=== PATIENT | male | born 1950 | race Caucasian/White ===

== ENCOUNTER 2020-03-04 11:21 | Outpatient (REF) | payer MEDICARE, SELFPAY ==
[2020-03-04 14:18] LABS: Glucose Fasting 113 mg/dL (60-99)
[2020-03-04 14:54] LABS: Estimated Average Glucose 120 mg/dL; Hemoglobin A1c % 5.8 %
== END 2020-03-04 11:22 | disposition home or self-care (01) ==
LOC: HO.10HDL 11:21
PROVIDERS: Visit Provider Family Medicine
DX: R73.9 Hyperglycemia, unspecified (principal)
CPT/HCPCS: 82947; 83036

== ENCOUNTER 2020-09-25 08:19 | Outpatient (REF) | payer MEDICARE, SELFPAY ==
[2020-09-25 10:23] LABS: MANUAL DIFF FLAG NO
[2020-09-25 10:29] LABS: Basophils Percent Auto 0.7 % (0-2); Eosinophils Absolute Auto 0.1 X10*3/uL (0.0-0.4); Eosinophils Percent Auto 1.6 % (0-4); Hematocrit 38.9 % (42-52); Hemoglobin 13.7 g/dl (14.0-18.0); Imm Gran Abs Auto 0.02 X10*3/uL (0.00-0.03); Imm Gran Pct Auto 0.4 % (0.0-0.4); Lymphocytes Absolute Auto 1.3 X10*3/uL (1.2-4.9); Lymphocytes Percent Auto 24.1 % (20-40); Mean Corpuscular HGB Conc 35.2 g/dl (31.0-36.0); Mean Corpuscular Hemoglobin 29.8 pg (27.0-33.0); Mean Corpuscular Volume 84.7 fL (80-98); Mean Platelet Volume 9.9 fL (9.4-12.4); Monocytes Absolute Auto 0.6 X10*3/uL (0.1-1.2); Monocytes Percent Auto 10.5 % (2-11); Neutrophils Absolute Auto 3.5 X10*3/uL (2.0-8.3); Neutrophils Percent Auto 62.7 % (45-73); Platelet Count 204 X10*3/uL (160-400); Red Blood Count 4.59 X10*6/uL (4.60-5.80); Red Cell Distribution Width 12.5 % (11.0-16.0); White Blood Count 5.5 X10*3/uL (4.8-10.8)
[2020-09-25 10:48] LABS: Creatinine Urine 229.18 mg/dL; Microalbum/Creatinine Ratio Ur 5.6 ug/mg cr; Protein/Creatinine Ratio, Ur 0.04 (<0.2); Total Protein Urine Random 10 mg/dL (<12)
[2020-09-25 10:55] LABS: Glucose Urine UA NEG (NEG); Leukocyte Esterase Urine NEG (NEG); Nitrite Urine NEG (NEG); Specific Gravity - Urine 1.025 (1.005-1.025); Urine Blood NEG (NEG); Urine Ketones NEG (NEG); Urine Protein NEG (NEG-TRACE)
[2020-09-25 10:59] LABS: Appearance Urine CLEAR; Color Urine YELLOW
[2020-09-25 11:00] LABS: Albumin Level 4.6 g/dL (3.5-5.0); Anion Gap 14 (12-20); Blood Urea Nitrogen 21 mg/dL (9-16); Calcium 10.2 mg/dL (8.4-10.2); Carbon Dioxide 30 mmol/L (22-29); Chloride 102 mmol/L (96-108); Estimated Glomerular Filt Rate 57; Phosphorus 3.8 mg/dL (2.7-4.5); Potassium 3.6 mmol/L (3.3-5.1); Sodium 142 mmol/L (135-145)
[2020-09-25 11:14] LABS: RBC Urine 0-2 /HPF (0); WBC Urine 0 /HPF (0-4)
[2020-09-25 13:10] LABS: Renal w Reflex Lab Use Only Order verified
[2020-09-25 13:46] LABS: Vitamin D 25-OH Total 85.5 ng/mL (>30)
[2020-09-26 14:22] LABS: Calcium (PTHI) 9.9 mg/dL (8.6-10.3); PTHI 22 pg/mL (14-64)
== END 2020-09-25 08:20 | disposition home or self-care (01) ==
LOC: HO.10HDL 08:19
PROVIDERS: Visit Provider Internal Medicine Nephrology
DX: I12.9 Hypertensive chronic kidney disease with stage 1 through stage 4 chronic kidney disease, or unspecified chronic kidney disease (principal); N18.30 Chronic kidney disease, stage 3 unspecified
CPT/HCPCS: 36415; 80051; 81001; 82040; 82043; 82306; 82310; 82565; 83735; 83970; 84100; 84156; 84520; 85025

== ENCOUNTER → 2020-12-29 10:13 | Outpatient (REF) | payer MEDICARE, SELFPAY ==
--- NOTE | 2020-12-29 10:18 | CA_ITS ---
Transthoracic Echocardiogram Patient (Last, First, Middle): Juan Alberto Morales, Gender: Male Date of : 1950 Age: 69 Procedure Date: 12/29/2020 Procedure Type: Transthoracic Echocardiogram Location: OP Height: 172.72 cm Weight: 90.72 kg BSA: 2.04 m2 Heart Rate: bpm BP: 130 / 70 mmHg Gear Design Engineer: Referring MD: Oscar Grant MD Symptoms: NON RHEUMATIC AORTIC VALVE STENOSIS Study Quality: Fair ECG Rhythm: Sinus Conclusions: - The left ventricular systolic function is normal. The visually estimated ejection fraction is between 55-60%. - There is moderate aortic valve stenosis. - There is mild aortic valve regurgitation. - There is mild dilatation of the ascending aorta measuring 4.00 cm. Findings Procedure Information Contrast agent, definity, is being given per protocol without apparent complications. Left Ventricle Normal left ventricular cavity size. There is mildly increased left ventricular wall thickness. The left ventricular systolic function is normal. The visually estimated ejection fraction is between 55-60%. There is no evidence of regional wall motion abnormalities. E/E prime ratio is between 8 and 15 consistent with indeterminate filling pressures. Evidence suggests grade I (mild) diastolic dysfunction. Right Ventricle Mildly increased right ventricular cavity size. There is normal right ventricular systolic function. RV basal diameter - 4.55 cm. Atria The left atrium is moderately dilated. The right atrium is normal in size. Aortic Valve There is moderate calcification of the aortic valve. There is moderate aortic valve stenosis. The peak aortic velocity is 2.79 m/s with a calculated peak gradient of 31 mmHg. The mean gradient is 15 mmHg. The aortic valve area is 1.03 cm2. There is mild aortic valve regurgitation. Dimensionless index 0.29. Mitral Valve The mitral valve appears normal. There is trace mitral valve regurgitation. There is no mitral valve stenosis. Pulmonic Valve The pulmonic valve was not well visualized. Tricuspid Valve There is trace tricuspid valve regurgitation. The pulmonary artery systolic pressure is normal. Great Vessels There is mild dilatation of the ascending aorta measuring 4.00 cm. Venous The inferior vena cava is normal in size and collapses greater than 50% with inspiration. Pericardium/Pleural There is no evidence of pericardial effusion. Prior Study Comparison No significant change compared to prior study dated: 12/30/2017. Measurements 2D Linear Measurements IVSd: 1.09 0.6-0.9/0.6-1.0 cm LVIDd: 4.88 3.9-5.3/4.2-5.9 cm LVIDd Index: 2.39 2.4-3.2/2.2-3.1 cm/m2 LVIDs: 3.06 2.0-3.6 cm LVPWd: 1.11 0.7-1.1 cm Ao Root: 3.60 2.1-3.5 cm LA Diam: 3.80 2.7-3.8/3.0-4.0 cm LAIDs Index: 1.86 1.5-2.3 cm/m2 LV Mass: 248.23 67-162/88-224 g LV Mass Index: 121.68 43-95/49-115 g/m2 LVOT Diam: 2.10 3.0+(-)1.3 cm 2D Systolic Function EF 4C: 42.40 >55% EF 2C: 60.30 >55% EF BiP: 51.60 >55% Mitral Valve MV Pk E: 0.96 MV PK A: 0.91 MV Decel Time: 232.00 E/A: 1.10 E'Lateral: 7.94 E'Medial: 6.31 E/E' Med: 15.20 E/E' Lat: 12.10 PHT: 68.00 MVA PHT: 3.24 Decel [place]: 4.13 Aortic Valve AoV Pk Saulo: 2.79 AoV Mn Saulo: 1.77 AoV VTI: 0.75 AoV Pk Grad: 31.00 Aov Mn Grad: 15.00 NUBIA Cont.VTI: 1.03 LVOT LVOT Pk Saulo: 0.80 LVOT Mn Saulo: 0.53 LVOT VTI: 0.22 LVOT Pk Grad: 3.00 LVOT Mn Grad: 1.00 LVOT Diam: 2.10 LVOT Area: 3.46 Diastolic Function MV Pk E: 0.96 MV Pk A: 0.91 E/A: 1.10 E'Medial: 6.31 E/E' Med: 15.20 E' Laterial: 7.94 E/E' Lat: 12.10 Right Ventricle TAPSE (mm): 26.00 TVS' Saulo: 13.70 Tricuspid Valve TR Pk Saulo: 2.19 TR Pk Grad: 19.00 RA Press: 3.00 RVSP: 22.00 Great Vessels Aorta Ao Root-2D: 3.60 2.0-3.7 cm Ao Asc: 4.00 2.1-3.4 cm Pulmonary Valve PV Pk Saulo: 0.86 Peak PV Grad: 3.00 Updated in Other Vendor System with Status of Final Brody Rahman MD electronically signed on 12/29/2020 12:31:35 PM with status of Final
== END ==
LOC: HO.CARD 10:13
PROVIDERS: PCP Family Medicine; Visit Provider Family Medicine
DX: I35.1 Nonrheumatic aortic (valve) insufficiency (principal); I35.0 Nonrheumatic aortic (valve) stenosis
CPT/HCPCS: 93306; Q9957

== ENCOUNTER 2021-04-24 10:20 | Outpatient (REF) | payer MEDICARE, SELFPAY ==
[2021-04-24 13:53] LABS: MANUAL DIFF FLAG NO
[2021-04-24 14:03] LABS: Basophils Percent Auto 0.7 % (0-2); Eosinophils Absolute Auto 0.1 X10*3/uL (0.0-0.4); Eosinophils Percent Auto 1.3 % (0-4); Hematocrit 40.1 % (42.0-52.0); Hemoglobin 14.2 g/dl (14.0-18.0); Imm Gran Abs Auto 0.01 X10*3/uL (0.00-0.03); Imm Gran Pct Auto 0.2 % (0.0-0.4); Lymphocytes Absolute Auto 1.7 X10*3/uL (1.2-4.9); Lymphocytes Percent Auto 30.5 % (20-40); Mean Corpuscular HGB Conc 35.4 g/dl (31.0-36.0); Mean Corpuscular Volume 84.6 fL (80.0-98.0); Mean Platelet Volume 10.1 fL (9.4-12.4); Monocytes Absolute Auto 0.7 X10*3/uL (0.1-1.2); Monocytes Percent Auto 11.6 % (2-11); Neutrophils Absolute Auto 3.1 x10*3/uL (2.0-8.3); Neutrophils Percent Auto 55.7 % (45-73); Platelet Count 211 X10*3/uL (160-400); Red Blood Count 4.74 X10*6/uL (4.60-5.80); Red Cell Distribution Width 13.3 % (11.0-16.0); White Blood Count 5.6 X10*3/uL (4.8-10.8)
[2021-04-24 14:13] LABS: Estimated Average Glucose 123 mg/dL; Hemoglobin A1c % 5.9 %
[2021-04-24 14:19] LABS: Anion Gap 13 (12-20); Blood Urea Nitrogen 14 mg/dL (9-16); Carbon Dioxide 30 mmol/L (22-29); Chloride 103 mmol/L (96-108); Estimated Glomerular Filt Rate 57; Glucose Fasting 107 mg/dL (60-99); Potassium 3.3 mmol/L (3.3-5.1); Sodium 143 mmol/L (135-145)
== END 2021-04-24 10:21 | disposition home or self-care (01) ==
LOC: HO.10HDL 10:20
PROVIDERS: Absent Provider Internal Medicine Nephrology; Visit Provider Family Medicine
DX: I10 Essential (primary) hypertension (principal); D64.9 Anemia, unspecified; Z83.3 Family history of diabetes mellitus
CPT/HCPCS: 36415; 80051; 82565; 82947; 83036; 84520; 85025

== ENCOUNTER → 2021-11-11 14:32 | Outpatient (BNVA) | payer MEDICARE, SELFPAY | PROVIDERS: PCP Family Medicine; Referring Provider Family Medicine; Visit Provider Surgery | DX: L98.9 Disorder of the skin and subcutaneous tissue, unspecified (principal) | CPT/HCPCS: 99202 ==

== ENCOUNTER 2021-12-02 09:50 | Outpatient (REF) | payer MEDICARE, SELFPAY | END 2021-12-02 09:51 | disposition home or self-care (01) | LOC: HO.LAB 09:50 | PROVIDERS: PCP Family Medicine; Visit Provider Surgery | DX: L98.9 Disorder of the skin and subcutaneous tissue, unspecified (principal) | CPT/HCPCS: 11401; 11402; 11440; 11441; 88304; 88305 ==

== ENCOUNTER 2021-12-15 07:29 | Outpatient (REF) | payer MEDICARE, SELFPAY ==
[2021-12-15 07:41] LABS: MANUAL DIFF FLAG NO
[2021-12-15 07:59] LABS: Basophils Absolute Auto 0.1 X10*3/uL (0.0-0.2); Eosinophils Absolute Auto 0.2 X10*3/uL (0.0-0.4); Eosinophils Percent Auto 2.6 % (0-4); Hematocrit 37.6 % (42.0-52.0); Hemoglobin 13.7 g/dl (14.0-18.0); Imm Gran Abs Auto 0.01 X10*3/uL (0.00-0.03); Imm Gran Pct Auto 0.2 % (0.0-0.4); Lymphocytes Absolute Auto 1.7 X10*3/uL (1.2-4.9); Lymphocytes Percent Auto 29.2 % (20-40); Mean Corpuscular HGB Conc 36.4 g/dl (31.0-36.0); Mean Corpuscular Hemoglobin 30.8 pg (27.0-33.0); Mean Corpuscular Volume 84.5 fL (80.0-98.0); Monocytes Absolute Auto 0.6 X10*3/uL (0.1-1.2); Neutrophils Absolute Auto 3.2 x10*3/uL (2.0-8.3); Platelet Count 189 X10*3/uL (160-400); Red Blood Count 4.45 X10*6/uL (4.60-5.80); Red Cell Distribution Width 12.8 % (11.0-16.0); White Blood Count 5.7 X10*3/uL (4.8-10.8)
[2021-12-15 08:23] LABS: Albumin Level 4.4 g/dL (3.5-5.0); Anion Gap 16 (12-20); Blood Urea Nitrogen 19 mg/dL (9-16); Calcium 9.6 mg/dL (8.4-10.2); Carbon Dioxide 29 mmol/L (22-29); Chloride 102 mmol/L (96-108); Estimated Glomerular Filt Rate 55; Phosphorus 3.7 mg/dL (2.7-4.5); Potassium 3.5 mmol/L (3.3-5.1); Sodium 143 mmol/L (135-145)
[2021-12-15 08:45] LABS: Vitamin D 25-OH Total 69.6 ng/mL (>30)
[2021-12-15 09:02] LABS: Appearance Urine HAZY; Color Urine YELLOW; Glucose Urine UA NEG (NEG); Leukocyte Esterase Urine NEG (NEG); Nitrite Urine NEG (NEG); Specific Gravity - Urine 1.025 (1.005-1.025); Urine Blood NEG (NEG); Urine Ketones 5 MG/DL (NEG); Urine Protein TRACE MG/DL (NEG-TRACE)
[2021-12-15 10:47] LABS: Microalbum/Creatinine Ratio Ur 12.3 ug/mg cr; Protein/Creatinine Ratio, Ur 0.07 (<0.2); Total Protein Urine Random 26 mg/dL (<12)
[2021-12-16 11:52] LABS: Calcium (PTHI) 9.7 mg/dL (8.6-10.3); PTHI 32 pg/mL (16-77)
== END 2021-12-15 07:30 | disposition home or self-care (01) ==
LOC: HO.LAB 07:29
PROVIDERS: PCP Family Medicine; Visit Provider Internal Medicine Nephrology
DX: I12.9 Hypertensive chronic kidney disease with stage 1 through stage 4 chronic kidney disease, or unspecified chronic kidney disease (principal); N18.31 Chronic kidney disease, stage 3a; N25.0 Renal osteodystrophy
CPT/HCPCS: 36415; 80051; 81003; 82040; 82043; 82306; 82310; 82565; 83735; 83970; 84100; 84156; 84520; 85025; 87086

== ENCOUNTER → 2022-01-06 08:25 | Outpatient (BNVA) | payer MEDICARE, SELFPAY | PROVIDERS: PCP Family Medicine; Visit Provider Surgery | DX: Z12.11 Encounter for screening for malignant neoplasm of colon (principal) | CPT/HCPCS: 99202 ==

== ENCOUNTER 2022-01-20 10:09 | Outpatient (REF) | payer MEDICARE, SELFPAY ==
[2022-01-20 12:10] LABS: Estimated Average Glucose 117 mg/dL; Hemoglobin A1c % 5.7 %
[2022-01-20 12:36] LABS: Alanine Aminotransferase 26 U/L (0-40); Anion Gap 18 (12-20); Aspartate Amino Transferase 21 U/L (5-37); Blood Urea Nitrogen 17 mg/dL (9-16); Carbon Dioxide 29 mmol/L (22-29); Chloride 101 mmol/L (96-108); Cholesterol 188 mg/dL; Estimated Glomerular Filt Rate 52; Glucose Fasting 124 mg/dL (60-99); HDL Cholesterol 36 mg/dL; LDL Cholesterol Calculated 87 mg/dl; Potassium 3.9 mmol/L (3.3-5.1); Sodium 144 mmol/L (135-145); Triglycerides 329 mg/dL
[2022-01-20 15:28] LABS: Hemoglobin A1C 149.8635 umol/L
== END 2022-01-20 10:10 | disposition home or self-care (01) ==
LOC: HO.LAB 10:09
PROVIDERS: PCP Family Medicine; Visit Provider Family Medicine
DX: I10 Essential (primary) hypertension (principal); R73.9 Hyperglycemia, unspecified; E78.00 Pure hypercholesterolemia, unspecified; Z79.899 Other long term (current) drug therapy
CPT/HCPCS: 36415; 80051; 80061; 82550; 82565; 82947; 83036; 84450; 84460; 84520

== ENCOUNTER 2022-03-05 08:02 | Day surgery (SDC) | payer MEDICARE, SELFPAY ==
[2022-03-05 09:02] VITALS: BP 129/75; PULSE 61; RESP 18; TEMP 36; BMI 29.8
--- NOTE | 2022-03-05 09:15 | P.CONAN_ITS ---
HPI - Anesthesia Eval Consult details Narrative: 71 M for colonoscopy [facility] Active Problems Active Problems: All Active Problems (Updated 01/19/22 @ 11:01 by Alma Marroquin, LARISSA) Skin lesion of face (Acute) Benign skin lesion of thigh (Acute) Colon cancer screening (Acute) Hypertension (Acute) Arthritis (Acute) Past Medical History Medical History Arthritis Colon cancer screening History of heartburn Hyperlipidemia Hypertension Non-rheumatic aortic stenosis Functional capacity: independent ambulation Family History Family History Sister Lung cancer Sister Cancer Mother Breast cancer Family history of problems with anesthesia: No Surgical History Surgical History History of arthroscopy of both knees History of back surgery History of cholecystectomy History of surgical removal of skin lesion (~2021) Hx of arthroscopy of right knee Hx of repair of right rotator cuff History of Problems with Anesthesia: No Social History Social History Alcohol intake: former Year quit: 2019 Patient Tobacco Use Status: Never used Tobacco Meds Allergies Allergy/AdvReac Type Severity Reaction Status Date / Time No Known Allergies Allergy Unverified 01/06/22 08:31 Active Medications: Current Medications Lactated Ringer's (Lr) 1,000 mls @ 100 mls/hr IVCONT .Q10H [facility] Home Medications Medication Instructions Recorded Confirmed Last Taken Type aspirin 81 mg tablet,delayed 81 mg PO DAILY 11/11/21 01/19/22 Unknown History release (Adult Low Dose Aspirin) atenolol 50 mg-chlorthalidone 25 1 tab PO DAILY 11/11/21 01/19/22 Unknown History mg tablet atorvastatin 20 mg tablet 20 mg PO DAILY 11/11/21 01/19/22 Unknown History cyanocobalamin (vitamin B-12) 1,000 mcg PO DAILY 11/11/21 01/19/22 Unknown History 1,000 mcg capsule lisinopril 20 mg tablet 20 mg PO DAILY 11/11/21 01/19/22 Unknown History nifedipine 30 mg tablet,extended 30 mg PO DAILY 11/11/21 01/19/22 Unknown History release 24 hr omega 1-xjc-had-fish oil 60 mg-90 1 cap PO DAILY 11/11/21 01/19/22 Unknown History mg-500 mg capsule (Fish Oil) Exam Exam Date and Time: March 05, [id number] Height,Weight and Vital Signs: Height 5 ft 9 in Weight 91.626 kg Last Vital Signs Temp 96.8 F 03/05/22 09:02 Pulse 61 03/05/22 09:02 Resp 18 03/05/22 09:02 BP 129/75 03/05/22 09:02 Airway Mallampati Class: IV TM Dist: >3cm Neck ROM: Full Loose/Missing/Broken Teeth: Yes (Poor dentition ) Heart: S1,S2 Lungs: b/l breath sounds Assessment and Plan Assessment Anesthesia Assessment: Anesthesia Plan Discussed and Chart Reviewed Final Anesthetic Review Family History of Problems with Anesthesia: No History of Problems with Anesthesia: No NPO: Yes ASA Class: III Final Preanesthetic Review: Meds/Allgs Chart Reviewed, Consent Obtained/Reviewed and Anes Risks/Benef Reviewed Patient Risk: Intermediate Procedure Risk: Intermediate Anesthetic Plan Anesthetic Plan: MAC: Disposition: Standard PACU
[2022-03-05] MEDS: Lactated Ringers 1,000 ML 100 ML IVCONT (09:32)
--- NOTE | 2022-03-05 10:00 | MHC.SHP ---
Pre-Procedural Eval Section A Date of Service: 03/05/22 Section B Chief Complaint: screening Details of Present Illness: For colon cancer screening, last colonoscopy 10 years ago, no GI complaints Relevant Family History (Specify if Yes): No Relevant Social History: None Present Medications: see Short Stay Collaborative assessment Medical History: Significant History ( hypertension, arthritis) Allergies: Allergies Allergy/AdvReac Type Severity Reaction Status Date / Time No Known Allergies Allergy Unverified 01/06/22 08:31 Review of Systems Sugical H&P ROS: Negative: Constitution, Cardiovascular, Respiratory, Neurological, Psychiatric, Hem-Onc, Allergic/Immunologic, Gastrointestinal, Genitourinary, Musculoskeletal, Integumentary, Endocrine and Eyes/Ears/Nose/Throat Exam Surgical H&P Exam: Normal: HEENT, Normal: Heart, Normal: Lungs, Normal: Extremities, Normal: Abdomen, Normal: Skin and Normal: Neurological Plan Diagnosis/Plan: Unchanged I have reviewed the history and physical and performed a pertinent physical examination on my patient. No changes have occurred unless specified.
--- NOTE | 2022-03-05 10:38 | W.PM.OPN ---
Operative Note Operative Note Date of Service: 03/05/22 Narrative: Preop diagnosis: Colon cancer screening Postop diagnosis: Sigmoid diverticulosis otherwise normal colonoscopy findings Procedure: Colonoscopy Surgeon: Eddie Aden MD The patient is a 71-year-old male last colonoscopy was about 10 years ago. He understood the technique of colonoscopy for screening. He was aware of the risks, benefits, and alternatives. The patient was brought to the operating room and placed in left lateral decubitus position under monitored anesthesia care. A surgical time-out was done. A full digital rectal exam was done and this did not reveal any significant anal lesions. The tip of the Olympus colonoscope was gently introduced through the anal orifice advanced with insufflation all the way to the cecum. The cecum was intubated. The cecum was identified by visualization of the ileocecal valve as well as the appendiceal orifice. The cecal mucosa was unremarkable. The scope was gradually withdrawn with careful examination of the entire colonic mucosa being done with scope withdrawal. The patient had adequate bowel prep so it was unlikely that any lesion may have been missed. The rectum was reached and there were no lesions seen. The anal canal was unremarkable. The scope was then withdrawn completely with desufflation The patient tolerated procedure well. There were no immediate complications. [His] next colonoscopy may be in the next [10] years if he remains healthy by then..
[2022-03-05 10:51] VITALS: BP 111/45; PULSE 51; RESP 19; TEMP 36.3; O2SAT 98
[2022-03-05 11:06] VITALS: BP 129/63; PULSE 52; RESP 18; TEMP 36.1; O2SAT 98
== END 2022-03-05 11:56 | disposition home or self-care (01) ==
PROVIDERS: PCP Family Medicine; Visit Provider Surgery
PROC: 0DBE8ZZ Excision of Large Intestine, Via Natural or Artificial Opening Endoscopic (ICD-10-PCS; CPT G0121; principal; 2022-03-05 09:40)
DX: Z12.11 Encounter for screening for malignant neoplasm of colon (principal); K57.30 Diverticulosis of large intestine without perforation or abscess without bleeding; I10 Essential (primary) hypertension; E78.5 Hyperlipidemia, unspecified; M19.90 Unspecified osteoarthritis, unspecified site; Z79.82 Long term (current) use of aspirin; Z79.899 Other long term (current) drug therapy; Z90.49 Acquired absence of other specified parts of digestive tract
CPT/HCPCS: G0121

== ENCOUNTER 2022-08-09 08:43 | Outpatient (REF) | payer MEDICARE, SELFPAY ==
[2022-08-09 09:28] LABS: Estimated Average Glucose 117 mg/dL; Hemoglobin A1C 151.4776 umol/L; Hemoglobin A1c % 5.7 %
[2022-08-09 10:05] LABS: Anion Gap 17 (12-20); Blood Urea Nitrogen 22 mg/dL (9-16); Carbon Dioxide 27 mmol/L (22-29); Chloride 102 mmol/L (96-108); Estimated Glomerular Filt Rate 46; Glucose Fasting 124 mg/dL (60-99); Potassium 3.8 mmol/L (3.3-5.1); Sodium 142 mmol/L (135-145)
[2022-08-09 10:13] LABS: Prostate Specific Antigen Scr 1.95 ng/mL (<0.05-4.0)
== END 2022-08-09 08:44 | disposition home or self-care (01) ==
LOC: HO.LAB 08:43
PROVIDERS: PCP Family Medicine; Visit Provider Family Medicine
DX: R35.1 Nocturia (principal); I10 Essential (primary) hypertension; E11.9 Type 2 diabetes mellitus without complications; Z12.5 Encounter for screening for malignant neoplasm of prostate
CPT/HCPCS: 36415; 80051; 82565; 82947; 83036; 84153; 84520

== ENCOUNTER 2022-12-06 12:17 | Outpatient (REF) | payer MEDICARE, SELFPAY ==
[2022-12-06 12:36] LABS: MANUAL DIFF FLAG NO
[2022-12-06 13:13] LABS: Appearance Urine Clear; Color Urine Yellow; Glucose Urine UA Negative (Negative); Leukocyte Esterase Urine Negative (Negative); Nitrite Urine Negative (Negative); Specific Gravity - Urine >= 1.030 (1.005-1.025); UMIC TRIGGER UA YES; Urine Blood Small (1+) (Negative); Urine Ketones Trace mg/dL (Negative); Urine Protein 30 (1+) mg/dL (Neg-Trace)
[2022-12-06 13:30] LABS: Basophils Absolute Auto 0.1 X10*3/uL (0.0-0.2); Eosinophils Absolute Auto 0.1 X10*3/uL (0.0-0.4); Eosinophils Percent Auto 0.9 % (0-4); Hematocrit 40.2 % (42.0-52.0); Hemoglobin 14.5 g/dl (14.0-18.0); Imm Gran Abs Auto 0.02 X10*3/uL (0.00-0.03); Imm Gran Pct Auto 0.3 % (0.0-0.4); Lymphocytes Absolute Auto 2.2 X10*3/uL (1.2-4.9); Lymphocytes Percent Auto 31.8 % (20-40); Mean Corpuscular HGB Conc 36.1 g/dl (31.0-36.0); Mean Corpuscular Hemoglobin 30.9 pg (27.0-33.0); Mean Corpuscular Volume 85.5 fL (80.0-98.0); Mean Platelet Volume 10.1 fL (9.4-12.4); Monocytes Absolute Auto 0.7 X10*3/uL (0.1-1.2); Monocytes Percent Auto 10.2 % (2-11); Neutrophils Absolute Auto 3.9 x10*3/uL (2.0-8.3); Neutrophils Percent Auto 55.8 % (45-73); Platelet Count 254 X10*3/uL (160-400); Red Cell Distribution Width 13.1 % (11.0-16.0)
[2022-12-06 13:50] LABS: Albumin Level 4.6 g/dL (3.5-5.0); Anion Gap 14 (12-20); Blood Urea Nitrogen 16 mg/dL (9-16); Calcium 10.1 mg/dL (8.4-10.2); Carbon Dioxide 30 mmol/L (22-29); Chloride 105 mmol/L (96-108); Estimated Glomerular Filt Rate 54; Magnesium 2.2 mg/dL (1.6-2.6); Phosphorus 3.3 mg/dL (2.7-4.5); Potassium 3.6 mmol/L (3.3-5.1); Sodium 145 mmol/L (135-145)
[2022-12-06 13:51] LABS: Bacteria Urine None Seen (None Seen); Squamous Epithelial Cell Urine 0-2 /HPF (0-2); WBC Urine 0-5 /HPF (0-5)
[2022-12-06 14:06] LABS: Vitamin D 25-OH Total 54.3 ng/mL (>30)
[2022-12-06 14:26] LABS: Microalbum/Creatinine Ratio Ur 12.5 ug/mg cr; Protein/Creatinine Ratio, Ur 0.06 (<0.2); Total Protein Urine Random 36 mg/dL (<12)
[2022-12-08 18:58] LABS: PTHI 44 pg/mL (16-77)
== END 2022-12-06 12:18 | disposition home or self-care (01) ==
LOC: HO.LAB 12:17
PROVIDERS: PCP Family Medicine; Visit Provider Internal Medicine Nephrology
DX: I12.9 Hypertensive chronic kidney disease with stage 1 through stage 4 chronic kidney disease, or unspecified chronic kidney disease (principal); N18.31 Chronic kidney disease, stage 3a; N25.0 Renal osteodystrophy; R82.90 Unspecified abnormal findings in urine
CPT/HCPCS: 36415; 80051; 81001; 81003; 82040; 82043; 82306; 82310; 82565; 83735; 83970; 84100; 84156; 84520; 85025; 87086

== ENCOUNTER → 2023-02-10 13:48 | Outpatient (REF) | payer MEDICARE, SELFPAY ==
--- NOTE | 2023-02-10 13:51 | CA_ITS ---
Transthoracic Echocardiogram Patient (Last, First, Middle): Juan Alberto Morales, Gender: Male Date of : 1950 Age: 72 Procedure Date: 02/10/2023 Procedure Type: Transthoracic Echocardiogram Location: OP Height: 175.26 cm Weight: 88.45 kg BSA: 2.04 m2 Heart Rate: 47 bpm BP: 132 / 60 mmHg Cloth Winder: MEENU Referring MD: Oscar Grant MD Junior Net Developer: Apolinar Watson MD Symptoms: COMPARE TO 2020 Study Quality: Fair/w Contrast ECG Rhythm: Bradycardia Conclusions: - 1. Normal LV ejection fraction 60 65% with impaired relaxation filling pattern 2. Moderate aortic stenosis and mild aortic regurgitation 3. Normal RV systolic pressure 4. Mildly dilated ascending aorta 3.9 cm 5. No gross pericardial effusion Findings Procedure Information Contrast agent, definity, is being given per protocol without apparent complications. Left Ventricle Normal left ventricular size, thickness, and systolic function. The visually estimated ejection fraction is between 60-65%. Spectral Doppler is indicative of an impaired relaxation filling pattern. E/E prime ratio is between 8 and 15 consistent with indeterminate filling pressures. Right Ventricle Normal right ventricular cavity size and systolic function. Atria The left atrium is likely dilated. There is no evidence of interatrial shunt. The right atrium is normal in size. Aortic Valve There is mild calcification of the aortic valve. There is mild thickening of the aortic valve. There is moderate aortic valve stenosis. There is mild aortic valve regurgitation. Mitral Valve Normal mitral valve structure and function. There is trace mitral valve regurgitation. There is no mitral valve stenosis. Pulmonic Valve The pulmonic valve is likely normal. Tricuspid Valve Normal tricuspid valve structure. There is trace tricuspid valve regurgitation. The right ventricular systolic pressure is normal. The right ventricular systolic pressure is 26 mmHg. Normal right atrial pressure. There is no evidence of pulmonary hypertension. Great Vessels The pulmonary artery was not well visualized. There is mild dilatation of the ascending aorta measuring 3.90 cm. Venous The inferior vena cava is normal in size and collapses greater than 50% with inspiration. Pericardium/Pleural There is no evidence of pericardial effusion. Prior Study Comparison Changes noted compared to prior study dated: 12/29/2020. no significant change Measurements 2D Linear Measurements IVSd: 0.96 0.6-0.9/0.6-1.0 cm LVIDd: 4.68 3.9-5.3/4.2-5.9 cm LVIDd Index: 2.29 2.4-3.2/2.2-3.1 cm/m2 LVIDs: 3.03 2.0-3.6 cm LVPWd: 0.92 0.7-1.1 cm LA Diam: 3.90 2.7-3.8/3.0-4.0 cm LAIDs Index: 1.91 1.5-2.3 cm/m2 LV Mass: 185.92 67-162/88-224 g LV Mass Index: 91.14 43-95/49-115 g/m2 LVOT Diam: 2.00 3.0+(-)1.3 cm 2D Systolic Function EF 4C: 59.40 >55% EF 2C: 68.40 >55% EF BiP: 63.50 >55% Mitral Valve MV Pk E: 1.10 MV PK A: 0.76 MV Decel Time: 217.00 E/A: 1.50 E'Lateral: 8.92 E'Medial: 7.72 E/E' Med: 14.20 E/E' Lat: 12.30 PHT: 64.00 MVA PHT: 3.44 Decel [place]: 5.09 Aortic Valve AoV Pk Saulo: 2.92 AoV Mn Saulo: 2.05 AoV VTI: 0.75 AoV Pk Grad: 34.00 Aov Mn Grad: 19.00 NUBIA Cont.VTI: 1.04 AI Pk Saulo: 4.28 AI [place]: 1.81 LVOT LVOT Pk Saulo: 0.93 LVOT Mn Saulo: 0.74 LVOT VTI: 0.25 LVOT Pk Grad: 3.00 LVOT Mn Grad: 2.00 LVOT Diam: 2.00 LVOT Area: 3.14 Diastolic Function MV Pk E: 1.10 MV Pk A: 0.76 E/A: 1.50 E'Medial: 7.72 E/E' Med: 14.20 E' Laterial: 8.92 E/E' Lat: 12.30 Right Ventricle TAPSE (mm): 27.50 TVS' Saulo: 11.90 Tricuspid Valve TR Pk Saulo: 2.13 TR Pk Grad: 18.00 RA Press: 8.00 RVSP: 26.00 Great Vessels Aorta Sinus of Valsalva: 3.70 2.0-3.5 cm Ao Asc: 3.90 2.1-3.4 cm Pulmonary Valve PV Pk Saulo: 0.84 Peak PV Grad: 3.00 Updated in Other Vendor System with Status of Final Apolinar Watson MD electronically signed on 02/11/2023 9:56:12 AM with status of Final
== END ==
LOC: HO.CARD 13:48
PROVIDERS: PCP Family Medicine; Visit Provider Family Medicine
DX: I35.0 Nonrheumatic aortic (valve) stenosis (principal)
CPT/HCPCS: 93306; Q9957

== ENCOUNTER → 2023-02-10 13:51 | Outpatient (BNV) | payer MEDICARE, SELFPAY | PROVIDERS: PCP Family Medicine; Visit Provider Internal Medicine Cardiovascular Disease | DX: I35.2 Nonrheumatic aortic (valve) stenosis with insufficiency (principal) | CPT/HCPCS: 93306 ==

== ENCOUNTER 2023-03-08 08:45 | Outpatient (REF) | payer MEDICARE, SELFPAY ==
[2023-03-08 09:04] LABS: MANUAL DIFF FLAG NO
[2023-03-08 09:25] LABS: Basophils Absolute Auto 0.1 X10*3/uL (0.0-0.2); Basophils Percent Auto 0.9 % (0-2); Eosinophils Absolute Auto 0.1 X10*3/uL (0.0-0.4); Eosinophils Percent Auto 1.6 % (0-4); Hematocrit 39.8 % (42.0-52.0); Hemoglobin 14.3 g/dl (14.0-18.0); Imm Gran Abs Auto 0.02 X10*3/uL (0.00-0.03); Imm Gran Pct Auto 0.3 % (0.0-0.4); Lymphocytes Absolute Auto 2.1 X10*3/uL (1.2-4.9); Lymphocytes Percent Auto 32.9 % (20-40); Mean Corpuscular HGB Conc 35.9 g/dl (31.0-36.0); Mean Corpuscular Hemoglobin 29.8 pg (27.0-33.0); Mean Corpuscular Volume 82.9 fL (80.0-98.0); Monocytes Absolute Auto 0.8 X10*3/uL (0.1-1.2); Monocytes Percent Auto 12.4 % (2-11); Neutrophils Absolute Auto 3.3 x10*3/uL (2.0-8.3); Neutrophils Percent Auto 51.9 % (45-73); Platelet Count 231 X10*3/uL (160-400); Red Cell Distribution Width 12.8 % (11.0-16.0); White Blood Count 6.4 X10*3/uL (4.8-10.8)
[2023-03-08 09:55] LABS: Anion Gap 14 (12-20); Calcium 9.8 mg/dL (8.4-10.2); Carbon Dioxide 27 mmol/L (22-29); Chloride 104 mmol/L (96-108); Estimated Glomerular Filt Rate 51; Potassium 3.1 mmol/L (3.3-5.1); Sodium 142 mmol/L (135-145)
== END 2023-03-08 08:46 | disposition home or self-care (01) ==
LOC: HO.LAB 08:45
PROVIDERS: PCP Family Medicine; Visit Provider Family Medicine
DX: I10 Essential (primary) hypertension (principal); D61.818 Other pancytopenia
CPT/HCPCS: 36415; 80051; 82310; 82565; 85025

== ENCOUNTER 2023-04-15 10:25 | Outpatient (REF) | payer MEDICARE, SELFPAY ==
[2023-04-15 12:19] LABS: Anion Gap 13 (12-20); Carbon Dioxide 29 mmol/L (22-29); Chloride 103 mmol/L (96-108); Potassium 3.9 mmol/L (3.3-5.1); Sodium 141 mmol/L (135-145)
[2023-04-15 12:31] LABS: Prostate Specific Antigen Scr 1.16 ng/mL (<0.05-4.0)
== END 2023-04-15 10:26 | disposition home or self-care (01) ==
LOC: HO.LAB 10:25
PROVIDERS: PCP Family Medicine; Visit Provider Family Medicine
DX: E87.6 Hypokalemia (principal); N40.0 Benign prostatic hyperplasia without lower urinary tract symptoms; Z12.5 Encounter for screening for malignant neoplasm of prostate
CPT/HCPCS: 36415; 80051; 84153

== ENCOUNTER 2023-09-15 07:35 | Outpatient (REF) | payer MEDICARE, SELFPAY ==
--- NOTE | ~2023-09-15 | XR_ITS ---
EXAMINATION: XR LUMBOSACRAL SPINE WITH OBLIQUES CLINICAL INFORMATION: Low back pain. Chronic pain in lower back. COMPARISON: None available. TECHNIQUE: 5 views of the lumbosacral spine. FINDINGS: Surgical clips in the right upper quadrant. Mild levoscoliosis of the lumbar spine. Bones are diffusely demineralized. Atherosclerotic aortoiliac calcifications. Facet arthritis in the lower lumbar spine. Multilevel lumbar spondylosis. Moderate degenerative changes in the bilateral sacroiliac joints. Advanced degenerative changes with loss of disc space height at L5-S1. XR/XR lumbar spine 4V min IMPRESSION: Advanced degenerative disc disease at L5-S1.
== END 2023-09-15 07:36 | disposition home or self-care (01) ==
LOC: HO.XRAY 07:35
PROVIDERS: PCP Family Medicine; Visit Provider Family Medicine
DX: M54.50 Low back pain, unspecified (principal)
CPT/HCPCS: 72110

== ENCOUNTER 2023-12-12 09:03 | Outpatient (REF) | payer MEDICARE, SELFPAY ==
[2023-12-12 10:44] LABS: Alanine Aminotransferase 17 U/L (0-40); Anion Gap 12 (12-20); Aspartate Amino Transferase 18 U/L (5-37); Blood Urea Nitrogen 19 mg/dL (9-16); Carbon Dioxide 30 mmol/L (22-29); Chloride 104 mmol/L (96-108); Estimated Glomerular Filt Rate 50; Potassium 3.9 mmol/L (3.3-5.1); Sodium 142 mmol/L (135-145)
== END 2023-12-12 09:04 | disposition home or self-care (01) ==
LOC: HO.LAB 09:03
PROVIDERS: PCP Family Medicine; Visit Provider Family Medicine
DX: I10 Essential (primary) hypertension (principal); E78.00 Pure hypercholesterolemia, unspecified; Z79.899 Other long term (current) drug therapy
CPT/HCPCS: 36415; 80051; 82550; 82565; 84450; 84460; 84520

== ENCOUNTER 2023-12-19 08:46 | Outpatient (REF) | payer MEDICARE, SELFPAY ==
[2023-12-19 10:51] LABS: Appearance Urine Clear; Color Urine Dark Yellow; Glucose Urine UA Negative (Negative); Leukocyte Esterase Urine Negative (Negative); Nitrite Urine Negative (Negative); Specific Gravity - Urine 1.025 (1.005-1.025); Urine Blood Negative (Negative); Urine Ketones Trace mg/dL (Negative); Urine Protein Trace mg/dL (Neg-Trace)
[2023-12-19 10:58] LABS: Bacteria Urine None Seen (None Seen); Hyaline Casts Urine 0-2 /LPF (0-2); RBC Urine 0-2 /HPF (0-2); Squamous Epithelial Cell Urine 0-2 /HPF (0-2); WBC Urine 0-5 /HPF (0-5)
[2023-12-19 11:02] LABS: Albumin Level 4.4 g/dL (3.5-5.0); Anion Gap 13 (12-20); Blood Urea Nitrogen 21 mg/dL (9-16); Calcium 10.6 mg/dL (8.4-10.2); Carbon Dioxide 30 mmol/L (22-29); Chloride 103 mmol/L (96-108); Estimated Glomerular Filt Rate 50; Phosphorus 2.6 mg/dL (2.7-4.5); Potassium 3.7 mmol/L (3.3-5.1); Sodium 142 mmol/L (135-145)
[2023-12-19 11:19] LABS: Protein/Creatinine Ratio, Ur 0.09 (<0.2); Total Protein Urine Random 20 mg/dL (<12)
== END 2023-12-19 08:47 | disposition home or self-care (01) ==
LOC: HO.10HDL 08:46
PROVIDERS: Visit Provider Internal Medicine Nephrology
DX: I12.9 Hypertensive chronic kidney disease with stage 1 through stage 4 chronic kidney disease, or unspecified chronic kidney disease (principal); N18.31 Chronic kidney disease, stage 3a; N25.0 Renal osteodystrophy
CPT/HCPCS: 36415; 80051; 81001; 82040; 82310; 82565; 82570; 84100; 84156; 84520

== ENCOUNTER 2023-12-26 08:45 | Outpatient (REF) | payer MEDICARE, SELFPAY ==
[2023-12-26 09:00] LABS: MANUAL DIFF FLAG NO
[2023-12-26 09:28] LABS: Basophils Absolute Auto 0.1 X10*3/uL (0.0-0.2); Basophils Percent Auto 0.8 % (0-2); Eosinophils Absolute Auto 0.1 X10*3/uL (0.0-0.4); Eosinophils Percent Auto 1.7 % (0-4); Hematocrit 40.7 % (42.0-52.0); Hemoglobin 14.3 g/dl (14.0-18.0); Imm Gran Abs Auto 0.02 X10*3/uL (0.00-0.03); Imm Gran Pct Auto 0.3 % (0.0-0.4); Lymphocytes Percent Auto 32.5 % (20-40); Mean Corpuscular HGB Conc 35.1 g/dl (31.0-36.0); Mean Corpuscular Hemoglobin 28.9 pg (27.0-33.0); Mean Corpuscular Volume 82.2 fL (80.0-98.0); Mean Platelet Volume 9.8 fL (9.4-12.4); Monocytes Absolute Auto 0.6 X10*3/uL (0.1-1.2); Monocytes Percent Auto 9.1 % (2-11); Neutrophils Absolute Auto 3.4 x10*3/uL (2.0-8.3); Neutrophils Percent Auto 55.6 % (45-73); Platelet Count 227 X10*3/uL (160-400); Red Blood Count 4.95 X10*6/uL (4.60-5.80); Red Cell Distribution Width 13.3 % (11.0-16.0)
[2023-12-26 10:03] LABS: Alanine Aminotransferase 16 U/L (0-40); Anion Gap 13 (12-20); Aspartate Amino Transferase 17 U/L (5-37); Blood Urea Nitrogen 18 mg/dL (9-16); Carbon Dioxide 28 mmol/L (22-29); Chloride 104 mmol/L (96-108); Estimated Glomerular Filt Rate 50; Sodium 142 mmol/L (135-145)
[2023-12-26 10:06] LABS: Potassium 2.9 mmol/L (3.3-5.1)
== END 2023-12-26 08:46 | disposition home or self-care (01) ==
LOC: HO.LAB 08:45
PROVIDERS: PCP Family Medicine; Visit Provider Family Medicine
DX: I10 Essential (primary) hypertension (principal); D64.9 Anemia, unspecified
CPT/HCPCS: 36415; 80051; 82550; 82565; 84450; 84460; 84520; 85025

== ENCOUNTER 2024-05-30 12:58 | Outpatient (REF) | payer MEDICARE, SELFPAY ==
[2024-05-30 13:15] LABS: MANUAL DIFF FLAG NO
[2024-05-30 13:41] LABS: Basophils Absolute Auto 0.1 X10*3/uL (0.0-0.2); Basophils Percent Auto 0.8 % (0-2); Eosinophils Absolute Auto 0.2 X10*3/uL (0.0-0.4); Hematocrit 37.8 % (42.0-52.0); Hemoglobin 13.5 g/dl (14.0-18.0); Imm Gran Abs Auto 0.01 X10*3/uL (0.00-0.03); Imm Gran Pct Auto 0.2 % (0.0-0.4); Lymphocytes Absolute Auto 2.2 X10*3/uL (1.2-4.9); Lymphocytes Percent Auto 36.7 % (20-40); Mean Corpuscular HGB Conc 35.7 g/dl (31.0-36.0); Mean Corpuscular Hemoglobin 29.4 pg (27.0-33.0); Mean Corpuscular Volume 82.4 fL (80.0-98.0); Mean Platelet Volume 9.8 fL (9.4-12.4); Monocytes Absolute Auto 0.7 X10*3/uL (0.1-1.2); Monocytes Percent Auto 10.7 % (2-11); Neutrophils Absolute Auto 2.9 x10*3/uL (2.0-8.3); Neutrophils Percent Auto 48.6 % (45-73); Platelet Count 230 X10*3/uL (160-400); Red Blood Count 4.59 X10*6/uL (4.60-5.80); Red Cell Distribution Width 13.2 % (11.0-16.0); White Blood Count 6.1 X10*3/uL (4.8-10.8)
[2024-05-30 14:05] LABS: Alanine Aminotransferase 69 U/L (0-40); Anion Gap 13 (12-20); Aspartate Amino Transferase 28 U/L (5-37); Blood Urea Nitrogen 17 mg/dL (9-16); Carbon Dioxide 29 mmol/L (22-29); Chloride 104 mmol/L (96-108); Estimated Glomerular Filt Rate > 60; Potassium 3.8 mmol/L (3.3-5.1); Sodium 142 mmol/L (135-145)
== END 2024-05-30 12:59 | disposition home or self-care (01) ==
LOC: HO.LAB 12:58
PROVIDERS: PCP Family Medicine; Visit Provider Family Medicine
DX: D64.9 Anemia, unspecified (principal); I10 Essential (primary) hypertension; E78.00 Pure hypercholesterolemia, unspecified; Z79.899 Other long term (current) drug therapy
CPT/HCPCS: 36415; 80051; 82550; 82565; 84450; 84460; 84520; 85025

== ENCOUNTER → 2024-06-06 14:38 | Outpatient (REF) | payer MEDICARE, SELFPAY ==
--- NOTE | 2024-06-06 14:43 | CA_ITS ---
Transthoracic Echocardiogram Patient (Last, First, Middle): Juan Alberto Morales, Gender: Male Date of : 1950 Age: 73 Procedure Date: 06/06/2024 Procedure Type: Transthoracic Echocardiogram Location: OP Height: 172.72 cm Weight: 90.72 kg BSA: 2.04 m2 Heart Rate: bpm BP: 130 / 66 mmHg Computer Architect: Referring MD: Oscar Grant MD Product Support Consultant: Apolinar Watson MD Symptoms: I35.0 Aortic Stenosis, NR AVS NO CLAUDIA I35.1 Aortic Regurgitation Study Quality: Adequate ECG Rhythm: Sinus Conclusions: - 1. Normal LV ejection fraction of 60 65% with impaired relaxation filling pattern 2. Moderate aortic stenosis and mild aortic regurgitation 3. Normal RV systolic pressure 4. Mildly dilated ascending aorta 5. No pericardial effusion Findings Left Ventricle Normal left ventricular size, thickness, and systolic function. The visually estimated ejection fraction is between 60-65%. Spectral Doppler is indicative of an impaired relaxation filling pattern. E/E prime ratio is between 8 and 15 consistent with indeterminate filling pressures. Right Ventricle Normal right ventricular cavity size and systolic function. Atria The left atrium is likely dilated. There is no evidence of interatrial shunt. The right atrium is normal in size. Aortic Valve The aortic valve was not well visualized. There is mild calcification of the aortic valve. There is mild thickening of the aortic valve. There is moderate aortic valve stenosis. The peak aortic velocity is 3.01 m/s with a calculated peak gradient of 36 mmHg. The mean gradient is 17 mmHg. The aortic valve area is 1.34 cm2. There is mild aortic valve regurgitation. Mitral Valve There is mild anterior and posterior mitral leaflet thickening. There is mild mitral annular calcification. There is trace mitral valve regurgitation. There is no mitral valve stenosis. Pulmonic Valve The pulmonic valve was not well visualized. Tricuspid Valve Likely normal tricuspid valve structure and function. There is mild tricuspid valve regurgitation. The right ventricular systolic pressure is normal. The right ventricular systolic pressure is 26 mmHg. Normal right atrial pressure. There is no evidence of pulmonary hypertension. Great Vessels The pulmonary artery was not well visualized. There is mild dilatation of the ascending aorta measuring 3.70 cm. Venous The inferior vena cava is normal in size and collapses greater than 50% with inspiration. Pericardium/Pleural There is no evidence of pericardial effusion. Prior Study Comparison No significant change compared to prior study dated: 02/10/2025. Measurements 2D Linear Measurements IVSd: 1.02 0.6-0.9/0.6-1.0 cm LVIDd: 4.60 3.9-5.3/4.2-5.9 cm LVIDd Index: 2.25 2.4-3.2/2.2-3.1 cm/m2 LVIDs: 2.97 2.0-3.6 cm LVPWd: 1.10 0.7-1.1 cm Ao Root: 3.40 2.1-3.5 cm LA Diam: 3.60 2.7-3.8/3.0-4.0 cm LAIDs Index: 1.76 1.5-2.3 cm/m2 LV Mass: 214.37 67-162/88-224 g LV Mass Index: 105.09 43-95/49-115 g/m2 LVOT Diam: 2.10 3.0+(-)1.3 cm Mitral Valve MV Pk E: 0.64 MV PK A: 0.91 MV Decel Time: 298.00 E/A: 0.70 E'Lateral: 7.40 E'Medial: 4.57 E/E' Med: 14.10 E/E' Lat: 8.70 PHT: 87.00 MVA PHT: 2.53 Decel [place]: 2.16 Aortic Valve AoV Pk Saulo: 3.01 AoV Mn Saulo: 1.89 AoV VTI: 0.65 AoV Pk Grad: 36.00 Aov Mn Grad: 17.00 NUBIA Cont.VTI: 1.34 LVOT LVOT Pk Saulo: 1.05 LVOT Mn Saulo: 0.78 LVOT VTI: 0.25 LVOT Pk Grad: 4.00 LVOT Mn Grad: 3.00 LVOT Diam: 2.10 LVOT Area: 3.46 Diastolic Function MV Pk E: 0.64 MV Pk A: 0.91 E/A: 0.70 E'Medial: 4.57 E/E' Med: 14.10 E' Laterial: 7.40 E/E' Lat: 8.70 Tricuspid Valve TR Pk Saulo: 2.39 TR Pk Grad: 23.00 RA Press: 3.00 RVSP: 26.00 Great Vessels Aorta Ao Root-2D: 3.40 2.0-3.7 cm Ao Asc: 3.70 2.1-3.4 cm Pulmonary Valve PV Pk Saulo: 1.06 Peak PV Grad: 4.00 Updated in Other Vendor System with Status of Final Apolinar Watson MD electronically signed on 06/07/2024 1:07:04 PM with status of Final
--- OUTSIDE RECORDS SUMMARY | 2024-06-06 17:05 | XMS_ITS | Clinical Summary ---
Author Organization [facility] Address [address] [place] [address] Care Team Providers Care Campaign Director Name Role Phone Oscar Grant MD Primary Care Provider [phone] Allergies No known active allergies Medications Medication Sig Dispensed Refills Start Date End Date Status aspirin EC 81 MG tablet Take 81 mg by mouth daily. 0 Active atenolol 50 MG TABS 1 tablet, chlorthalidone 25 MG TABS 1 tablet Take 1 tablet by mouth daily. 0 Active Thayer-3 Fatty Acids (FISH OIL PO) Take 1,000 mg by mouth daily. 0 Active atorvastatin (LIPITOR) tablet 20 mg Take 20 mg by mouth daily. 0 Active lisinopril (PRINIVIL,ZESTRIL) tablet 20 mg Take 20 mg by mouth daily. 0 Active NIFEdipine (PROCARDIA XL) 30 MG 24 hr tablet Take 30 mg by mouth daily. 0 Active vitamin B-12 (CYANOCOBALAMIN) 500 MCG tablet Take 1,000 mcg by mouth daily. 0 Active Misc Natural Products (GLUCOSAMINE CHOND COMPLEX/MSM PO) Take by mouth. 0 Activ e Active Problems No known active problems Family History Medical History Relation Name Comments Hypertension Father Relation Name Status Comments Father Social History Tobacco Use Types Packs/Day Years Used Date Smoking Tobacco: Never Smokeless Tobacco: Never Alcohol Use Standard Drinks/Week Comments No 0 (1 standard drink = 0.6 oz pur e alcohol) Sex and Gender Information Value Date Recorded Sex Assigned at Not on file Gender Identity Not on file Sexual Orientation Not on file Job Start Date Occupation Industry Not on file Not on file Not on file Last Filed Vital Signs Vital Sign Reading Time Taken Comments Blood Pressure 137/69 07/27/2023 9:57 AM EDT Pulse 56 07/27/2023 9:57 AM EDT Temperature 35.8 ??C (96.4 ??F) 07/27/2023 9:57 AM ED T Respiratory Rate - - Oxygen Saturation 97% 07/27/2023 9:57 AM EDT Inhaled Oxygen Concentration - - Weight 94.8 kg (209 lb) 07/27/2023 9:57 AM EDT Height 172.7 cm (5' 8 ) 07/27/2023 9:57 AM EDT Body Mass Index 31.78 07/27/2023 9:57 AM EDT Plan of Treatment Health Maintenance Due Date Last Done Comments Hepatitis C Screening 1950 COVID-19 Vaccine (#1) 1953 Depression Screening 1960 Preventative Health Evaluation 1966 DTap / Tdap / Td (1 - Tdap) 12/31/1967 Shingrix-Zoster Vaccine (1 o f 2) 12/31/1967 Colon Cancer Screening (Colonoscopy) 1993 Fall Risk Assessment 2013 Pneumococcal Vaccine (2 of 2 - PPSV23 or PCV20) 02/19/2018 12/25/2017, 05/19/2016 RSV Adult > 60+ Yrs or (1 - 1-dose 75+ series) 12/31/2023 Influenza Vaccine (#1) 2024 Hepatitis B Vaccines Aged Out No long er eligible based on patient's age to complete this topic RSV Ped < 20 months Aged Out No longe r eligible based on patient's age to complete this topic Care Teams Campaign Director Relationship Specialty Start Date End Date Oscar Grant MD [address] [place] [address] DR CEJA [facility] AFSANEH MARIE [id number] PCP - General Internal Medicine 08/25/17
--- OUTSIDE RECORDS SUMMARY | 2024-06-06 17:05 | XMS_ITS | Clinical Summary ---
Author Organization [facility] Address [address] [place] [address] Care Team Providers Care Hooker On Name Role Phone Oscar Grant MD Primary Care Provider [phone] Allergies No known active allergies Medications Medication Sig Dispensed Refills Start Date End Date Status aspirin 81 mg EC tablet Take 81 mg by mouth daily. Active atorvastatin (LIPITOR) 20 mg tablet Take 20 mg by mouth daily. Active cyanocobalamin (VITAMIN B-12) 500 mcg tablet Take 1,000 mcg by mouth daily. Active lisinopriL (PRINIVIL,ZESTRIL) 20 mg tablet Take 20 mg by mouth daily. Active NIFEdipine XL (PROCARDIA XL) 30 mg 24 hr tablet Take 30 mg by mouth daily. Active fish oil/omega-3/vitamin E (OMEGA-3 FATTY ACIDS PO) Take 1,000 mg by mouth daily. Active glucosam/chond-msm1/C/ raissa/bor ([id number] COMPLEX ORAL) Take by mouth. Active atenoloL-chlorthalidon e (TENORETIC) 50-25 mg per tablet Take 1 tablet by mouth daily. Active Surgical History Surgery Date Site/Laterality Comments CHOLECYSTECTOMY PROCEDURE:CHOLECYSTECTOMY OTHER SURGICAL HISTORY PROCEDURE:spinal disectomy OTHER SURGICAL HISTORY PROCEDURE:knee arthoscopy Medical History Medical History Date Comments Hypertension DX:Hypertension Chronic kidney disease DX:Chroni c kidney disease Hyperlipidemia DX:Hyperlipidemi a Diverticulosis DX:Diverticulosi s H/O hypogonadism DX:H/O hypogona dism DJD (degenerative joint disease), lumbar DX:DJD (degenerative joint disease), lumbar Leukopenia DX:Leukopenia Family History Medical History Relation Name Comments [...] on file Sexual Orientation Not on file Obstetrics History Last Filed Vital Signs Vital Sign Reading Time Taken Comments Blood Pressure 137/69 07/27/2023 9:57 AM EDT Sit ting Left arm Pulse 56 07/27/2023 9:57 AM EDT Temperature - - Respiratory Rate - - Oxygen Saturation - - Inhaled Oxygen Concentration - - Weight 94.8 kg (209 lb) 07/27/2023 9:57 AM EDT Height 172.7 cm (5' 8 ) 07/27/2023 9:57 AM EDT Body Mass Index 31.78 07/27/2023 9:57 AM EDT Plan of Treatment Upcoming Encounters Date Type Department Care Team (Late st Contact Info) Description 07/26/2024 10:00 AM EDT Office Visit [facility] Hematology Oncology [address] [place] [address] Yassine Alcazar MD [address] [place] [address] Health Maintenance Due Date Last Done Comments COVID-19 Vaccine (#1) 1955 Pneumococcal Vaccine: 65+ Ye ars (1 of 2 - PCV) 1954 DTaP,Tdap,and Td Vaccines (1 - Tdap) 12/31/1967 Zoster Vaccines (1 of 2) 12/31/1967 Cholesterol Screening (Lipid Panel) 04/24/2022 Colorectal Cancer Screening: Colonoscopy 04/24/2022 Depression Screening 04/24/2022 Falls Risk Assessment 04/24/2022 Hepatitis C Screening 04/24/2022 Medicare Annual Wellness Visit 04/24/2022 Social Influencers of Health Screening 04/24/2022 RSV Immunization Patients 60 + Years Old (1 - 1-dose 75+ series) 12/31/2023 Influenza Vaccine (#1) 2024 HIB Vaccines Aged Out No longer eligi ble based on patient's age to complete this topic HPV Vaccines Aged Out No longer eligi ble based on patient's age to complete this topic Hepatitis A Vaccines Aged Out No long er eligible based on patient's age to complete this topic Hepatitis B Vaccines Aged Out No long er eligible based on patient's age to complete this topic IPV Vaccines Aged Out No longer eligi ble based on patient's age to complete this topic MMR Vaccines Aged Out No longer eligi ble based on patient's age to complete this topic Meningococcal ACWY Vaccine Aged Out N o longer eligible based on patient's age to complete this topic RSV Immunization Patients Un kimber 20 months Aged Out No longer eligible b ased on patient's age to complete this topic Varicella Vaccines Aged Out No longer eligible based on patient's age to complete this topic Care Teams Hooker On Relationship Specialty Start Date End Date Oscar Grant MD [address] [place] [address] [address] [place] [address] PCP - General Internal Medicine 08/25/17
--- OUTSIDE RECORDS SUMMARY | 2024-06-06 17:06 | XMS_ITS | Clinical Summary ---
Author Organization [facility] [place] Facility Address [address] [address] Care Team Providers Care Etl Data Architect Name Role Phone Oscar Grant MD Primary Care Provider [phone] Allergies No known active allergies Medications aspirin (ST JOMAR) 81 MG EC tablet Take 81 mg by mouth 1 (one) time each day Active atenolol-chlorth alidone (TENORETIC) 50-25 MG per tablet Take 1 tablet by mouth 1 (one) time each day Active omega-3 (FISH OIL) 1000 MG capsule Take 1,000 mg by mouth 1 (one) time each day Active atorvastatin (LIPITOR) 20 MG tablet Take 20 mg by mouth 1 (one) time each day Active lisinopril 20 MG tablet Take 20 mg by mouth 1 (one) time each day 11/04/2020 Active NIFEdipine XL (PROCARDIA XL) 30 MG 24 hr tablet Take 30 mg by mouth 1 (one) time each day Active cyanocobalamin (VITAMIN B-12) 1000 MCG tablet Take 1,000 mcg by mouth 1 (one) time each day Active potassium chloride (K-TAB) 20 MEQ CR tablet Take 20 mEq by mouth 1 (one) time each day 12/27/2023 Active Active Problems Problem Noted Date Diagnosed Date Chronic kidney disease stage 3 12/11/2020 Hypertensive renal disease 12/11/2020 Renal failure syndrome 12/11/2020 Stage 3a chronic kidney disease 12/11/2020 Renal osteodystrophy 12/11/2020 Resolved Problems Problem Noted Date Diagnosed Date Resolved Date Essential hypertension 12/11/202012/11 Immunizations Name Administration Dates Next Due Pneumococcal Conjugate 13-Valent 12/25/2017,0 08/2016 Family History Medical History Relation Comments Hypertension Father Diabetes Sibling 1 Heart disease Sibling 2 Relation Status Comments Father Sibling 1 Sibling 2 Social History Tobacco Use Types Packs/Day Years Used Date Smoking Tobacco: Never Smokeless Tobacco: Never Alcohol Use Standard Drinks/Week Comments No 0 (1 standard drink = 0.6 oz pur e alcohol) Sex and Gender Information Value Date Recorded Sex Assigned at Not on file Legal Sex Male 4:47 PM EST Gender Identity Not on file Sexual Orientation Not on file Last Filed Vital Signs Vital Sign Reading Time Taken Comments Blood Pressure 132/65 01/02/2024 1:49 PM EDT Pulse 66 01/02/2024 1:49 PM EDT Temperature - - Respiratory Rate - - Oxygen Saturation 99% 01/02/2024 1:49 PM EDT Inhaled Oxygen Concentration - - Weight 93.4 kg (205 lb 12.8 oz) 01/02/2024 1:49 PM EDT Height 172.7 cm (5' 8 ) 09/26/2018 12:0 0 PM EDT Body Mass Index 31.29 09/26/2018 12:00 PM EDT Plan of Treatment Upcoming Encounters Date Type Department Care Team (Late st Contact Info) Description 12/31/2024 1:00 PM EDT Office Visit [facility] [address] [place] [address] Nawaf Keller MD [address] [facility] [address] [place] [phone] Health Maintenance Due Date Last Done Comments Colorectal Cancer Screening: Annual FOBT 1997 Colorectal Cancer Screening: Colonoscopy 1997 Colorectal Cancer Screening: Sigmoidoscopy 1997 Pneumococcal Vaccine: 65+ Years (2 of 2 - PPSV23 or PCV20) 02/19/2018 12/25/2017, 05/19/2016 Influenza Vaccine (#1) 2024 Hepatitis B Vaccine Aged Out No longe r eligible based on patient's age to complete this topic Insurance [facility] Care Teams Etl Data Architect Relationship Specialty Start Date End Date Oscar Grant MD [address] [place] [address] [facility] [place] PCP - General Internal Medicine 12/11/20
== END ==
LOC: HO.CARD 14:38
PROVIDERS: Visit Provider Family Medicine
DX: I35.0 Nonrheumatic aortic (valve) stenosis (principal); I35.1 Nonrheumatic aortic (valve) insufficiency
CPT/HCPCS: 93306

== ENCOUNTER → 2024-06-06 14:43 | Outpatient (BNV) | payer MEDICARE, SELFPAY | PROVIDERS: Visit Provider Internal Medicine Cardiovascular Disease | DX: I35.2 Nonrheumatic aortic (valve) stenosis with insufficiency (principal); I35.8 Other nonrheumatic aortic valve disorders; I34.81 Nonrheumatic mitral (valve) annulus calcification; I36.1 Nonrheumatic tricuspid (valve) insufficiency | CPT/HCPCS: 93306 ==

== ENCOUNTER 2024-08-27 12:11 | Outpatient (REF) | payer OTHER, SELFPAY ==
[2024-08-27 12:28] LABS: MANUAL DIFF FLAG NO
[2024-08-27 13:06] LABS: Basophils Absolute Auto 0.1 X10*3/uL (0.0-0.2); Basophils Percent Auto 0.7 % (0-2); Eosinophils Absolute Auto 0.1 X10*3/uL (0.0-0.4); Eosinophils Percent Auto 1.1 % (0-4); Hematocrit 36.2 % (42.0-52.0); Hemoglobin 12.7 g/dl (14.0-18.0); Imm Gran Abs Auto 0.03 X10*3/uL (0.00-0.03); Imm Gran Pct Auto 0.4 % (0.0-0.4); Lymphocytes Absolute Auto 2.1 X10*3/uL (1.2-4.9); Lymphocytes Percent Auto 29.3 % (20-40); Mean Corpuscular HGB Conc 35.1 g/dl (31.0-36.0); Mean Corpuscular Hemoglobin 28.5 pg (27.0-33.0); Mean Corpuscular Volume 81.2 fL (80.0-98.0); Mean Platelet Volume 9.8 fL (9.4-12.4); Monocytes Absolute Auto 0.7 X10*3/uL (0.1-1.2); Monocytes Percent Auto 9.8 % (2-11); Neutrophils Absolute Auto 4.3 x10*3/uL (2.0-8.3); Neutrophils Percent Auto 58.7 % (45-73); Platelet Count 228 X10*3/uL (160-400); Red Blood Count 4.46 X10*6/uL (4.60-5.80); Red Cell Distribution Width 13.6 % (11.0-16.0); White Blood Count 7.3 X10*3/uL (4.8-10.8)
[2024-08-27 13:20] LABS: Estimated Average Glucose 131 mg/dL; Hemoglobin A1C 146.7196 umol/L; Hemoglobin A1c % 6.2 % (<6.0); Total Hemoglobin (HGBA1C) 3309.4792 umol/L
[2024-08-27 13:41] LABS: Anion Gap 16 (12-20); Blood Urea Nitrogen 18 mg/dL (9-16); Carbon Dioxide 22 mmol/L (22-29); Chloride 107 mmol/L (96-108); Estimated Glomerular Filt Rate > 60; Glucose Fasting 99 mg/dL (60-99); Sodium 141 mmol/L (135-145)
--- OUTSIDE RECORDS SUMMARY | 2024-08-27 14:13 | XMS_ITS | Clinical Summary ---
Author Organization [facility] Address [address] [place] [address] Phone Care Team Providers Care Model Engine Mechanic Name Role Phone Oscar Grant MD Primary Care Provider [phone] Allergies No known active allergies Medications aspirin 81 mg EC tablet Take 81 mg by mouth daily. Active atorvastatin (LIPITOR) 20 mg tablet Take 20 mg by mouth daily. Active cyanocobalamin (VITAMIN B-12) 500 mcg tablet Take 1,000 mcg by mouth daily. Active lisinopriL (PRINIVIL,ZESTRI L) 20 mg tablet Take 20 mg by mouth daily. Active NIFEdipine XL (PROCARDIA XL) 30 mg 24 hr tablet Take 30 mg by mouth daily. Active fish oil/omega-3/rubio min E (OMEGA-3 FATTY ACIDS PO) Take 1,000 mg by mouth daily. Active atenoloL-chlorth alidone (TENORETIC) 50-25 mg per tablet Take 1 tablet by mouth daily. Active Encounters Date Type Department Care Team Description 07/26/2024 10:00 AM EDT Office Visit [facility] Hematology Oncology [address] [place] [address] Yassine Alcazar MD Hairy cell leukemia, in remission (CMS/HCC V24, CMS/HCC V28) (Primary Dx); Normocytic anemia from Last 3 Months Surgical History Surgery Date Site/Laterality Comments CHOLECYSTECTOMY [...] Date Smoking Tobacco: Never Smokeless Tobacco: Never Tobacco Cessation:Counseling Given: Not Answered Alcohol Use Standard Drinks/Week Comments No 0 (1 standard drink = 0.6 oz pur e alcohol) Sex and Gender Information Value Date Recorded Sex Assigned at Not on file Legal Sex Male 11:47 PM EST Gender Identity Not on file Sexual Orientation Not on file Obstetrics History Last Filed Vital Signs Vital Sign Reading Time Taken Comments Blood Pressure 131/67 07/26/2024 10:03 AM EDT Pulse 49 07/26/2024 10:03 AM EDT Temperature 36.2 ??C (97.2 ??F) 07/26/2024 10:03 AM E DT Respiratory Rate - - Oxygen Saturation 100% 07/26/2024 10:03 AM EDT Inhaled Oxygen Concentration - - Weight 89.4 kg (197 lb) 07/26/2024 10:03 AM EDT Height 175.3 cm (5' 9 ) 07/26/2024 10:03 AM EDT Body Mass Index 29.09 07/26/2024 10:03 AM EDT Plan of Treatment Upcoming Encounters Date Type Department Care Team (Late st Contact Info) Description 07/31/2025 11:00 AM EDT Office Visit [facility] Hematology Oncology [address] [place] [phone] Yassine Alcazar MD [address] [place] [address] Health Maintenance Due Date Last Done Comments DTaP,Tdap,and Td Vaccines (1 - Tdap) 12/31/1967 Zoster Vaccines (1 of 2) 03/12/2017 01/15/2017 COVID-19 Vaccine (3 - Pfizer risk series) 11/25/2020 10/28/2020, 10/07/2020 Cholesterol Screening (Lipid Panel) 04/24/2022 Colorectal Cancer Screening: Colonoscopy 04/24/2022 Depression Screening 04/24/2022 Falls Risk Assessment 04/24/2022 Hepatitis C Screening 04/24/2022 Medicare Annual Wellness Visit 04/24/2022 Social Influencers of Health Screening 04/24/2022 RSV Immunization Adult Patients (1 - 1-dose 75+ series) 12/31/2023 Influenza Vaccine (Season Ended) 2025 03/13/2022, 03/19/2021, 02/29/2020, Additional history exists Pneumococcal Vaccine: 50+ Years Completed 12/25/2017, 12/23/2017, 05/19/2016 HIB Vaccines Aged Out No longer eligi [...] patient's age to complete this topic Meningococcal B Vaccine Aged Out No l onger eligible based on patient's age to complete this topic RSV Immunization Patients Under 20 months Aged Out No longer eligible based on patient's age to complete this topic Varicella Vaccines Aged Out No longer eligible based on patient's age to complete this topic Procedures Procedure Name Priority Date/Time Associated Diagnosis Comments CBC WITH AUTO DIFFERENTIAL Routine 07/04/2024 1:03 PM EST 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, CMS/HCC V28) CBC AND DIFFERENTIAL Routine 07/04/2024 1:03 PM EST 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, CMS/HCC V28) BETA 2 MICROGLOBULIN, SERUM Routine 07/04/2024 1:03 PM EST 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, CMS/HCC V28) LACTATE DEHYDROGENASE Routine 07/04/2024 1:03 PM EST 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, CMS/HCC V28) from Last 3 Months Results * (ABNORMAL) CBC auto differential (07/04/2024 1:03 PM EST) WBC 6.2 4.8 - 10.8 K/mcL LAB HEMETOLOGY METHOD 07/04/2024 1:48 PM [facility] RBC 4.20(L) 4.50 - 5.50 M/mcL LAB HEMETOLOGY METHOD 07/04/2024 1:48 PM [facility] Hemoglobin 11.9(L) 13.5 - 17.5 g/dL LAB HEMETOLOGY METHOD 07/04/2024 1:48 PM [facility] Hematocrit 35.3(L) 42.0 - 54.0 % LAB HEMETOLOGY METHOD 07/04/2024 1:48 PM [facility] MCV 83.5 79.0 - 98.0 FL LAB HEMETOLOGY METHOD 07/04/2024 1:48 PM [facility] MCH 28.1 27.0 - 32.0 pcg LAB HEMETOLOGY METHOD 07/04/2024 1:48 PM [facility] MCHC 33.7 32.0 - 37.0 g/dL LAB HEMETOLOGY METHOD 07/04/2024 1:48 PM [facility] RDW 13.6 11.0 - 15.0 % LAB HEMETOLOGY METHOD 07/04/2024 1:48 PM [facility] Platelets 232 130 - 400 K/mcL LAB HEMETOLOGY METHOD 07/04/2024 1:48 PM [facility] MPV 9.6 7.0 - 11.0 FL LAB HEMETOLOGY METHOD 07/04/2024 1:48 PM [facility] NRBC 0.0 <1.0 % LAB HEMETOLOGY METHOD 07/04/2024 1:48 PM [facility] NRBC Absolute 0.00 <0.10 K/mcL LAB HEMETOLOGY METHOD 07/04/2024 1:48 PM [facility] Neutrophils Relative 58.4 % LAB HEMETOLOGY METHOD 07/04/2024 1:48 PM [facility] Lymphocytes Relative 29.9 % LAB HEMETOLOGY METHOD 07/04/2024 1:48 PM [facility] Monocytes Relative 10.1 % LAB HEMETOLOGY METHOD 07/04/2024 1:48 PM [facility] Eosinophils Relative 0.8 % LAB HEMETOLOGY METHOD 07/04/2024 1:48 PM [facility] Basophils Relative 0.6 % LAB HEMETOLOGY METHOD 07/04/2024 1:48 PM [facility] Immature Granulocytes Relative 0.2 % LAB HEMETOLOGY METHOD 07/04/2024 1:48 PM [facility] Neutrophils Absolute 3.64 1.50 - 7.00 K/mcL LAB HEMETOLOGY METHOD 07/04/2024 1:48 PM [facility] Lymphocytes Absolute 1.86 1.00 - 5.00 K/mcL LAB HEMETOLOGY METHOD 07/04/2024 1:48 PM [facility] Monocytes Absolute 0.63 0.20 - 1.00 K/mcL LAB HEMETOLOGY METHOD 07/04/2024 1:48 PM [facility] Eosinophils Absolute 0.05 0.00 - 0.50 K/mcL LAB HEMETOLOGY METHOD 07/04/2024 1:48 PM [facility] Basophils Absolute 0.04 0.00 - 0.20 K/mcL LAB HEMETOLOGY METHOD 07/04/2024 1:48 PM [facility] Immature Granulocytes Absolute 0.01 0.00 - 0.03 K/mcL LAB HEMETOLOGY METHOD 07/04/2024 1:48 PM EST [facility] Blood Venous blood specimen / Unknown Venipuncture / Unknown 07/04/2024 1:03 PM EST 07/04/2024 1:36 PM EST Yassine Alcazar MD LAB BLOOD ORDERABLES Final R esult Performing Organization Address City/[facility]/ZIP Co de Phone Number [facility] [address] [place] [address], [place] [phone] * Lactate dehydrogenase (07/04/2024 1:03 PM EST) [facility] LDH 199 120 - 246 unit/L LAB CHEMISTRY METHOD 07/04/2024 3:15 PM EST [facility] Blood Venous blood specimen / Unknown Venipuncture / Unknown 07/04/2024 1:03 PM EST 07/04/2024 1:36 PM EST Yassine Alcazar MD LAB BLOOD ORDERABLES Final R esult Performing Organization Address [facility] Co de Phone Number [facility] [address] [place] [address], [place] [phone] * (ABNORMAL) Beta 2 microglobulin, serum (07/04/2024 1:03 PM EST) Pathologist [facility] Beta-2 Microglobulin 2.9(H) 0.7 - 1.8 mg/L LAB CHEMISTRY METHOD 07/04/2024 3:15 PM EST [facility] Blood Venous blood specimen / Unknown Venipuncture / Unknown 07/04/2024 1:03 PM EST 07/04/2024 1:36 PM EST Yassine Alcazar MD LAB BLOOD ORDERABLES Final R esult Performing Organization Address City/[facility]/ZIP Co de Phone Number [facility] [address] [place] [address], from Last 3 Months Insurance [employer] MEDICARE Care Teams Model Engine Mechanic Relationship Specialty Start Date End Date Oscar Grant MD [address] [place] [address] [address] [place] [address] PCP - General Internal Medicine 08/25/17
--- OUTSIDE RECORDS SUMMARY | 2024-08-27 14:13 | XMS_ITS | Clinical Summary ---
Author Organization [facility] Address [address] [place] [address] Care Team Providers Care Computer Game Tester Name Role Phone Oscar Grant MD Primary Care Provider [phone] Allergies No known active allergies Medications Medication Sig Dispensed Refills Start Date End Date Status aspirin EC 81 MG tablet Take 81 mg by mouth daily. 0 Active atenolol 50 MG TABS 1 tablet, chlorthalidone 25 MG TABS 1 tablet Take 1 tablet by mouth daily. 0 Active [place]-3 Fatty Acids (FISH OIL PO) Take 1,000 [...] Hepatitis C Screening 1950 COVID-19 Vaccine (#1) 07[birth year]02/1949 Depression Screening 1960 Preventative Health Evaluation 1966 DTap / Tdap / Td (1 - Tdap) 12/31/1967 Colon Cancer Screening (Colonoscopy) 1993 Shingrix-Zoster Vaccine (1 o f 2) 1998 Fall Risk Assessment 2013 Pneumococcal Vaccine (2 of 2 - PPSV23 or PCV20) 12/25/2018 12/25/2017, 05/19/2016 RSV Adult > 60+ Yrs or (1 - 1-dose 75+ series) 12/31/2023 Influenza Vaccine (#1) 2024 Hepatitis B Vaccines Aged Out No long er eligible based on patient's age to complete this topic RSV Ped < 20 months Aged Out No longe r eligible based on patient's age to complete this topic Care Teams Computer Game Tester Relationship Specialty Start Date End Date Oscar Grant MD [address] [place] [address] [address] [facility] [place] [address] PCP - General Internal Medicine 08/25/17
--- OUTSIDE RECORDS SUMMARY | 2024-08-27 14:13 | XMS_ITS | Clinical Summary ---
Author Organization [facility] Facility Address [address] [address] Care Team Providers Care Parts Representative Name Role Phone Oscar Grant MD Primary Care Provider [phone] Allergies No known active allergies Medications aspirin [...] Date Resolved Date Essential hypertension 12/11/202012/11 Immunizations Immunization Administration Dates Next Due Pneumococcal Conjugate 13-Valent [...] Visit [facility] [address] [place] [address] Nawaf Keller MD [address] [facility] [address] [place] [phone] Health Maintenance Due Date Last Done Comments Colorectal Cancer Screening: Annual FOBT 1997 Colorectal Cancer Screening: Colonoscopy 1997 Colorectal Cancer Screening: Sigmoidoscopy 1997 Pneumococcal Vaccine: 50+ Years (2 of 2 - PPSV23) 02/19/2018 12/25/2017, 05/19/2016 Influenza Vaccine (Season Ended) 2025 Pneumococcal Vaccine: Peds ( 0 to 5 Years) and At-Risk Patients (6 to 49 Years) Discontinued 12/25/2017, 05/19/2016 Hepatitis B Vaccine Aged Out No longe r eligible based on patient's age to complete this topic Insurance [facility] Care Teams Parts Representative Relationship Specialty Start Date End Date Oscar Grant MD [address] [place] [address] PCP - General Internal Medicine 12/11/20
== END 2024-08-27 12:12 | disposition home or self-care (01) ==
LOC: HO.LAB 12:11
PROVIDERS: PCP Family Medicine; Visit Provider Family Medicine
DX: C91.40 Hairy cell leukemia not having achieved remission (principal); I10 Essential (primary) hypertension; R73.9 Hyperglycemia, unspecified
CPT/HCPCS: 36415; 80051; 82565; 82947; 83036; 84520; 85025

== ENCOUNTER 2025-01-02 14:38 | Outpatient (AMB) | payer OTHER, SELFPAY ==
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
[2025-01-02 14:49] VITALS: BMI 28.4
[2025-01-02 14:51] VITALS: BP 130/62; PULSE 52; RESP 16; TEMP 36.3; O2SAT 98
--- OUTSIDE RECORDS SUMMARY | 2025-01-02 15:35 | XMS_ITS | Clinical Summary ---
Author Organization [facility] Address [address] [place] [address] Care Team Providers Care Crisis Worker Name Role Phone Oscar Grant MD Primary Care Provider [phone] Allergies No known active allergies Medications Medication Sig Dispensed Refills Start Date End Date Status aspirin EC 81 MG tablet Take 81 mg by mouth daily. 0 Active atenolol 50 MG TABS 1 tablet, chlorthalidone 25 MG TABS 1 tablet Take 1 tablet by mouth daily. 0 Active [place]-3 Fatty Acids (FISH OIL PO) Take 1,000 [...] 56 07/27/2023 9:57 AM EDT Temperature 35.8 C (96.4 F) 07/27/2023 9:57 AM EDT Respiratory Rate - - Oxygen Saturation 97% [...] 12/31/1967 Shingrix-Zoster Vaccine (1 o f 2) 1998 Fall Risk Assessment 2013 Pneumococcal Vaccine (2 of 2 - PPSV23 or PCV20) 12/25/2018 12/25/2017, 05/19/2016 RSV Adult > 60+ Yrs or (1 - 1-dose 75+ series) 12/31/2023 Influenza Vaccine (#1) 2025 Hepatitis B Vaccines Aged Out No long er eligible based on patient's age to complete this topic RSV Ped < 20 months Aged Out No longe r eligible based on patient's age to complete this topic Care Teams Crisis Worker Relationship Specialty Start Date End Date Oscar Grant MD [address] [place] [address] DR CEJA [facility] [place] [id number] PCP - General Internal Medicine 08/25/17
--- OUTSIDE RECORDS SUMMARY | 2025-01-02 15:35 | XMS_ITS | Encounter Summary ---
Author Organization [facility] Address [address] [facility] [address] [place] [phone] Phone Care Team Providers Care Office Nurse Name Role Phone Oscar Grant MD Primary Care Provider [phone] Encounter Details Date Type Department Care Team (Late st Contact Info) Description 07/11/2020 Procedure Pass [facility], Ct Scan - [address] [address] Social History Tobacco Use Types Packs/Day Years Used Date Smoking Tobacco: Light Smoker Alcohol Use Standard Drinks/Week Comments Yes 3 (1 standard drink = 0.6 oz pur e alcohol) Sex and Gender Information Value Date Recorded Sex Assigned at Not on file Legal Sex Male 1:17 AM EST Gender Identity Not on file Sexual Orientation Not on file documented as of this encounter Functional Status * Calculated C-SSRS Risk Score (Lifetime/Recent) Answer Date of Assessment Author No Risk Indicated 07/11/2020 1:46 AM Matty Ramirez RN * [place] Suicide Severity Rating Scale (Screener/Recent Self-Report) Question Answer Date of Assessment Author 1. Wish to be (Past 1 Month) No 021 1:46 AM iBju Ramirez, RN 2. Non-Specific Active Suici iain Thoughts (Past 1 Month) No 07/11/2020 1:46 AM Biju Ramirez RN 6. Suicidal Behavior (Lifetime) No 1:46 AM Biju Ramirez, RN documented as of this encounter Plan of Treatment Not on file documented as of this encounter Visit Diagnoses Not on filedocumented in this encounter Care Teams Office Nurse Relationship Specialty Start Date End Date Oscar Grant MD [address] [place] [address] [place] [address] PCP - General Internal Medicine 07/11/20 documented as of this encounter Additional Source Comments The information contained in this document represents components of the legal health record. It is not the complete legal health record.[facility]
--- OUTSIDE RECORDS SUMMARY | 2025-01-02 15:35 | XMS_ITS | Clinical Summary ---
Author Organization [facility] Address [address] [place] [address] Phone Care Team Providers Care Detonator Assembler Name Role Phone Oscar Grant MD Primary Care Provider [phone] Allergies No known active allergies Medications aspirin [...] 49 07/26/2024 10:03 AM EDT Temperature 36.2 C (97.2 F) 07/26/2024 10:03 AM EDT Respiratory Rate - - Oxygen Saturation 100% [...] Description 07/31/2025 11:00 AM EDT Office Visit [facility] Hematology Oncology [address] [place] [phone] Yassine Alcazar MD [address] [place] [address] Health Maintenance Due Date Last Done Comments DTaP,Tdap,and Td Vaccines (1 - Tdap) 12/31/1967 Zoster Vaccines (1 of 2) 03/12/2017 01/15/2017 COVID-19 Vaccine (3 - Pfizer risk series) 11/25/2020 10/28/2020, 10/07/2020 Cholesterol Screening (Lipid Panel) 04/24/2022 Falls Risk Assessment 04/24/2022 Hepatitis C Screening 04/24/2022 Medicare Annual Wellness Visit 04/24/2022 Social Influencers of Health Screening 04/24/2022 RSV Immunization Adult Patients (1 - 1-dose 75+ series) 12/31/2023 Depression Screening 05/16/2024 Influenza Vaccine (#1) 2025 2, 03/19/2021, 02/29/2020, Additional history exists Pneumococcal Vaccine: [...] patient's age to complete this topic Insurance [employer] MEDICARE ADVANTAGE [employer] MEDICARE Care Teams Detonator Assembler Relationship Specialty Start Date End Date Oscar Grant MD [address] [place] [address] Dr Vargas, [place] [id number] PCP - General Internal Medicine 08/25/17
--- OUTSIDE RECORDS SUMMARY | 2025-01-02 15:35 | XMS_ITS | Clinical Summary ---
Author Organization [facility] Address [address] [address] Phone Care Team Providers Care Job Development Specialist Name Role Phone Oscar Grant MD Primary Care Provider [phone] Allergies No known active allergies Medications aspirin [...] Care Team (Late st Contact Info) Description 04/15/2025 2:15 PM EST Office Visit [facility] [address] [place] [address] Nawaf Keller MD [address] [facility] [address] [place] [address] Health Maintenance Due Date Last Done Comments Pneumococcal Vaccine: 50+ Years (2 of 2 - PPSV23, PCV20, or PCV21) 02/19/2018 12/25/2017, 05/19/2016 Influenza Vaccine (#1) 2025 Pneumococcal Vaccine: Peds (0 to 5 Years) and At-Risk Patients (6 to 49 Years) Discontinued 12/25/2017, 05/19/2016 Hepatitis B Vaccine Aged Out No longe r eligible based on patient's age to complete this topic Insurance [facility] Medicare Care Teams Job Development Specialist Relationship Specialty Start Date End Date Oscar Grant MD [address] [place] [address] [address] [place] PCP - General Internal Medicine 12/11/20
== END 2025-01-02 15:27 | disposition home or self-care (01) ==
LOC: HO.HMCHD 14:39
PROVIDERS: PCP Family Medicine; Visit Provider Physician Assistant
DX: I10 Essential (primary) hypertension (principal); E87.6 Hypokalemia; R73.03 Prediabetes; D64.9 Anemia, unspecified; M17.0 Bilateral primary osteoarthritis of knee; G62.9 Polyneuropathy, unspecified

== ENCOUNTER 2025-01-03 13:22 | Outpatient (REF) | payer OTHER, SELFPAY ==
--- NOTE | ~2025-01-03 | XR_ITS ---
Exam: X-ray, bilateral knees.XR KNEE 3 VIEWS BILATERAL TECHNIQUE: Three views lower extremity joint, bilateral knees INDICATION: chronic bilateral knee pain COMPARISON: Right knee July 05, 2019 FINDINGS: RIGHT KNEE: There is severe narrowing of the medial joint space, progressed since the prior. Lateral joint spaces preserved. There are tricompartmental marginal osteophytes. There is small joint effusion. There is mild narrowing of the lateral patellofemoral joint space. LEFT KNEE: There is moderate narrowing of the medial joint space. Lateral joint spaces preserved. There is mild narrowing of the lateral patellofemoral joint. There are tricompartmental marginal osteophytes. There is trace fluid in suprapatellar pouch. There is vascular calcification. XR/XR Knee Elieser 3V IMPRESSION: Right knee: Severe osteoarthritis and joint effusion. Left knee: Moderate osteoarthritis and a small amount of joint fluid. Electronically signed by: Sabas Blake MD 01/03/2025 02:18 PM EDT
--- OUTSIDE RECORDS SUMMARY | 2025-01-03 13:34 | XMS_ITS | Encounter Summary ---
Author Organization [facility] Address [address] [facility] [address] [place] [phone] Phone Care Team Providers Care Telephoner Name Role Phone Oscar Grant MD Primary Care Provider Encounter Details Date Type Department Care Team (Late st Contact Info) Description 07/11/2020 Procedure Pass [facility], Ct Scan - [address] [address] Social History Tobacco Use Types Packs/Day Years [...] 07/11/2020 1:46 AM Matty Ramirez RN * Bartholomew Suicide Severity Rating Scale (Screener/Recent Self-Report) Question Answer Date of Assessment Author 1. Wish to be (Past 1 Month) No 021 1:46 AM Biju Ramirez, RN 2. Non-Specific Active Suici iain Thoughts (Past 1 Month) No 07/11/2020 1:46 AM Biju Ramirez, RN 6. Suicidal Behavior (Lifetime) No 1:46 AM Biju Ramirez, RN documented as of this encounter Plan of Treatment Not on file documented as of this encounter Visit Diagnoses Not on filedocumented in this encounter Care Teams Telephoner Relationship Specialty Start Date End Date Oscar Grant MD [address] [place] [address] [place] [address] PCP - General Internal Medicine 07/11/20 documented as of this encounter Additional Source Comments The information contained in this document represents components of the legal health record. It is not the complete legal health record.[facility]
--- OUTSIDE RECORDS SUMMARY | 2025-01-03 13:34 | XMS_ITS | Clinical Summary ---
Author Organization [facility] Address [address] [place] [address] Care Team Providers Care Layer Out Plate Glass Name Role Phone Oscar Grant MD Primary Care Provider Allergies No known active allergies Medications Medication Sig Dispensed Refills Start Date End Date Status aspirin EC 81 MG tablet Take 81 mg by mouth daily. 0 Active atenolol 50 MG TABS 1 tablet, chlorthalidone 25 MG TABS 1 tablet Take 1 tablet by mouth daily. 0 Active [place]-3 Fatty Acids (FISH OIL PO) Take 1,000 [...] age to complete this topic Care Teams Layer Out Plate Glass Relationship Specialty Start Date End Date Oscar Grant MD [address] [place] [address] DR CEJA [facility] [place] [id number] PCP - General Internal Medicine 08/25/17
--- OUTSIDE RECORDS SUMMARY | 2025-01-03 13:34 | XMS_ITS | Clinical Summary ---
Author Organization [facility] Address [address] [place] [address] Phone Care Team Providers Care Auto Club Travel Counselor Name Role Phone Oscar Grant MD Primary Care Provider [phone] Allergies No known active allergies Medications aspirin [...] Description 07/31/2025 11:00 AM EDT Office Visit [facility] Hematology Oncology [address] [place] [phone] Yassine Alcazar MD [address] [place] [address] Health Maintenance Due Date Last Done Comments [...] MEDICARE ADVANTAGE [employer] MEDICARE Care Teams Auto Club Travel Counselor Relationship Specialty Start Date End Date Oscar Grant MD [address] [place] [address] Dr Vargas, [place] [address] PCP - General Internal Medicine 08/25/17
--- OUTSIDE RECORDS SUMMARY | 2025-01-03 13:34 | XMS_ITS | Clinical Summary ---
Author Organization [facility] Address [address] [address] Phone Care Team Providers Care Manager Developmental Name Role Phone Oscar Grant MD Primary Care Provider [phone] Allergies No known active allergies Medications aspirin [...] Visit [facility] [address] [place] [address] Nawaf Keller MD [address] [facility] [address] [place] [address] Health Maintenance Due Date Last Done Comments Pneumococcal Vaccine: 50+ Years (2 of 2 - PPSV23, PCV20, or PCV21) 02/19/2018 12/25/2017, 05/19/2016 Influenza Vaccine (#1) 2025 Pneumococcal Vaccine: Peds (0 to 5 Years) and At-Risk Patients (6 to 49 Years) Discontinued 12/25/2017, 05/19/2016 Hepatitis B Vaccine Aged Out No longe r eligible based on patient's age to complete this topic Insurance [facility] Medicare Care Teams Manager Developmental Relationship Specialty Start Date End Date Oscar Grant MD [address] [place] [address] [address] [place] PCP - General Internal Medicine 12/11/20
[2025-01-03 13:39] LABS: MANUAL DIFF FLAG NO
[2025-01-03 14:03] LABS: Hematocrit 35.3 % (42.0-52.0); Hemoglobin 12.4 g/dl (14.0-18.0); Imm Gran Abs Auto 0.02 X10*3/uL (0.00-0.03); Imm Gran Pct Auto 0.3 % (0.0-0.4); Lymphocytes Absolute Auto 2.0 X10*3/uL (1.2-4.9); Mean Corpuscular HGB Conc 35.1 g/dl (31.0-36.0); Mean Corpuscular Hemoglobin 27.3 pg (27.0-33.0); Mean Corpuscular Volume 77.6 fL (80.0-98.0); NRBC Abs Auto 0.000 X10*3/uL (0.0-0.012); NRBC Pct Auto 0.0 /100WBC (0.0-0.2); Platelet Count 229 X10*3/uL (160-400); Red Blood Count 4.55 X10*6/uL (4.60-5.80); White Blood Count 6.1 X10*3/uL (4.8-10.8)
[2025-01-03 14:11] LABS: Hemoglobin A1C 148.7036 umol/L; Total Hemoglobin (HGBA1C) 3239.3734 umol/L
[2025-01-03 14:37] LABS: Anion Gap 12 (12-20); Blood Urea Nitrogen 15 mg/dL (9-16); Calcium 9.9 mg/dL (8.4-10.2); Carbon Dioxide 29 mmol/L (22-29); Chloride 105 mmol/L (96-108); Estimated Glomerular Filt Rate > 60; Iron 66 mcg/dL (45-160); Percent Iron Saturation 19 % (15-50); Potassium 3.7 mmol/L (3.3-5.1); Sodium 142 mmol/L (135-145); Total Iron Binding Capacity 356 mcg/dL (228-428); Unsaturated Iron Binding 290 ug/dL
[2025-01-03 15:08] LABS: Folate 13.9 ng/mL (> or = 4.0); Vitamin B12 1650 pg/mL (200-900)
== END 2025-01-03 13:23 | disposition home or self-care (01) ==
LOC: HO.LAB 13:22
PROVIDERS: PCP Internal Medicine; Visit Provider Physician Assistant
DX: I10 Essential (primary) hypertension (principal); E87.6 Hypokalemia; D64.9 Anemia, unspecified; M17.0 Bilateral primary osteoarthritis of knee; M25.562 Pain in left knee; M25.561 Pain in right knee; G89.29 Other chronic pain; G57.93 Unspecified mononeuropathy of bilateral lower limbs; M23.209 Derangement of unspecified meniscus due to old tear or injury, unspecified knee; R73.03 Prediabetes
CPT/HCPCS: 36415; 73562; 80048; 82607; 82746; 83036; 83540; 85025

== ENCOUNTER → 2025-01-03 13:39 | Outpatient (BNV) | payer OTHER, SELFPAY | PROVIDERS: PCP Internal Medicine; Visit Provider Radiology Diagnostic Radiology | DX: M17.0 Bilateral primary osteoarthritis of knee (principal) | CPT/HCPCS: 73562 ==

== ENCOUNTER 2025-03-09 15:27 | Observation (INO) | payer MEDICARE, SELFPAY ==
--- NOTE | 2025-03-09 | ECG_ITS ---
Test Reason : chest pain Blood Pressure : */* mmHG Vent. Rate : 57 BPM Atrial Rate : 57 BPM P-R Int : 150 ms QRS Dur : 96 ms QT Int : 430 ms P-R-T Axes : 39 -27 1 degrees QTcB Int : 418 ms Sinus bradycardia Minimal voltage criteria for LVH, may be normal variant ( R in aVL ) Borderline ECG When compared with ECG of 09-Jul-2010 12:27, No significant changes seen Referred By: Generic ED Physician Electronically Signed By: DIANE MANUEL MD
--- NOTE | ~2025-03-09 | XR_ITS ---
CLINICAL HISTORY: cp sob 1 view chest x-ray. Comparison: None Findings: No consolidation or effusion. Cardiac and mediastinal contours appear unremarkable. Bones unremarkable. Impression: 1. No acute pulmonary disease. This document has been electronically signed by: New Jin MD on 03/09/2025 17:10:09
[2025-03-09 15:49] VITALS: BP 114/58; PULSE 58; RESP 18; TEMP 36.6; O2SAT 99; BMI 28.6
--- NOTE | 2025-03-09 15:49 | ED.CHESTPAIN ---
HPI - Chest Pain General Chief Complaint: Chest Pain Stated Complaint: chest pain/sob Time Seen by Provider: 03/09/25 20:11 Source: patient Mode of arrival: ambulatory Limitations: no limitations History of Present Illness ED Provider: Dany VILLA HPI narrative: The patient is a 74-year-old male with a history of hypertension, aortic stenosis, and hyperlipidemia, presenting to the ED for evaluation of diaphoresis, nausea, chest pain, and shortness of breath after installing 2 window screens and then climbing some stairs. The patient reports symptoms lasted approximately 30 minutes and improved with rest. The patient denies associated fever/chills, vomiting, diarrhea, pleurisy, cough, headache, near-syncope, syncope, recent sick contacts, or recent trauma. The patient reports he has recently been under a large amount of stress after the of his brother earlier this month, and caring for his sister who is sick with lung and brain cancer. The patient reports he has had a echocardiogram performed earlier this year which is performed annually secondary to his aortic stenosis, however patient states he has not had a stress test or catheterization in over 20 years. Related Data Home Medications ?Medication ?Instructions ?Recorded ?Confirmed aspirin 81 mg tablet,delayed 81 mg PO DAILY 11/11/21 01/03/25 release (Adult Low Dose Aspirin) atenolol 50 mg-chlorthalidone 25 1 tab PO DAILY 11/11/21 01/03/25 mg tablet atorvastatin 20 mg tablet 20 mg PO DAILY 11/11/21 01/03/25 cyanocobalamin (vitamin B-12) 1,000 mcg PO DAILY 11/11/21 01/03/25 1,000 mcg capsule lisinopril 20 mg tablet 20 mg PO DAILY 11/11/21 01/03/25 nifedipine 30 mg tablet,extended 30 mg PO DAILY 11/11/21 01/03/25 release 24 hr omega 2-bkg-wld-fish oil 60 mg-90 1 cap PO DAILY 11/11/21 01/03/25 mg-500 mg capsule (Fish Oil) potassium chloride 20 mEq 20 meq PO DAILY 01/02/25 01/03/25 tablet,extended release Previous Rx's ?Medication ?Instructions ?Recorded gabapentin 300 mg capsule 300 mg PO BEDTIME #90 caps 03/08/25 Allergies Allergy/AdvReac Type Severity Reaction Status Date / Time No Known Allergies Allergy Verified 03/09/25 15:51 Review of Systems Review of Systems: Yes all other systems are reviewed and are negative [facility] Past Medical History Medical History (Updated 03/09/25 @ 20:45 by Dany Douglas PA-C) Neuropathy of both feet Osteoarthritis of knees, bilateral Normocytic anemia Prediabetes Hypokalemia Non-rheumatic aortic stenosis History of heartburn Colon cancer screening Hypertension Arthritis Hyperlipidemia Surgical History (Updated 12/31/24 @ 16:39 by Karen Edouard) History of colonoscopy (~03/05/22) History of back surgery History of cholecystectomy Hx of repair of right rotator cuff History of arthroscopy of both knees Hx of arthroscopy of right knee History of surgical removal of skin lesion (~2021) Family History Family History Sister Lung cancer Sister Cancer Mother Breast cancer Social History Social History Household Members: None Housing: House Housing Other:: rents from sister in 2 family house Do you presently have visiting nurse or other home services: No Alcohol intake: former Year quit: 2019 Patient Tobacco Use Status: Never used Tobacco Smoked in Last 30 Days: No e-Cigarette/Vaping Use: Never Used Use of substances other than those prescribed or required for medical reasons: No Have you been hit, kicked, punched, or otherwise hurt by someone within the past year? If so, by whom?: No Do you feel safe in your current relationship?: No Current Relationship Is there a partner from a previous relationship who is making you feel unsafe now?: No Are you made to feel afraid or neglected: No [facility] Healthcare Practices: Declined Advance Directives: No Advance Directives Information Provided: No Do you have a plan to hurt others: No Plan Recently lost weight without trying: No Eating poorly because of decreased appetite: No Nutrition Risks: No Nutritional Risk Poor oral hygiene: No Physical Exam Vital Signs: Vital Signs: Last Vital Signs Temp 98 F 03/09/25 19:25 Pulse 56 03/09/25 19:25 Resp 19 03/09/25 19:25 BP 140/71 H 03/09/25 19:25 Pulse Ox 97 03/09/25 19:25 O2 Del Method Room Air 03/09/25 19:25 BMI result Body Mass Index 28.6 CONSTITUTIONAL: The patient appears non-toxic, well nourished and in no acute distress. Vital signs as documented. HEAD: Atraumatic, normocephalic. EYES: EOMs grossly intact, pupils equal, conjunctiva clear, no exudate. ENT: Nares patent, no discharge. Airway patent, no audible stridor, visible mucosa is pink and moist without noted lesions. NECK: Trachea is midline, no obvious masses or gross abnormalities. CHEST: Symmetric movement, normal appearance. LUNGS: LS present and CTAB, no w/r/r. Non-labored work of breathing. CARDIAC: Regular Rhythm, S1/S2 appreciated, there is a grade 2/6 systolic murmur heard best over the right sternal border with radiation to the carotids, consistent with aortic stenosis murmur. ABDOMEN: Abdomen soft and non-tender x4 quadrants, no palpable masses or organomegaly. : Deferred. EXTREMITIES: Normal tone, moves all extremities spontaneously without reported pain. No obvious acute injury or deformity noted. NEURO: Alert and oriented x3, CN II-XII appear grossly intact. Cerebellar Functioning grossly intact. No obvious sensory or motor deficits. Speech clear and appropriate. PSYCH: normal affect, appropriate eye contact, fluid speech, with appropriate response to questioning. No reported suicidality or homicidality. SKIN: Warm, dry, color appropriate, normal turgor. No rashes noted. Course Course Course Narrative: This is a Rapid Medical Exam performed in triage by Ness Morales PA-C. Full HPI, ROS and PE to be performed by primary ED provider. 74-year-old male with a past medical history of osteoarthritis, HTN, HLD, presenting to the ED c/o sudden onset CP/SOB and diaphoresis x 20mins ago after putting a window in and walking up the stairs - improved at present. denies nausea. Admits to lightheadedness at present PE: NAD, nontoxic appearing, talking in complete sentences Plan: EKG, labs, CXR, viral testing Medications Administered Generic Name Dose Route Start Last Admin Trade Name Freq PRN Reason Stop Dose Admin Enoxaparin Sodium 40 mg 03/09/25 21:00 03/09/25 22:34 Enoxaparin Sodium 40 Mg/0.4 Ml Syringe SUBCUT 40 mg Q24H TOM Administration Sodium Chloride 3 ml 03/10/25 00:00 03/10/25 00:52 0.9 % Sodium Chloride Flush 3 Ml Syringe IVFLUSH 3 ml [facility] Administration Medical Decision Making Medical Decision Making [facility] Narrative: 8:33 PM 03/09/2025 (Pavan VILLA): The patient is a 74-year-old male with a history of hypertension, aortic stenosis, and hyperlipidemia, presenting to the ED for evaluation of diaphoresis, nausea, chest pain, and shortness of breath after installing 2 window screens and then climbing some stairs. The patient reports symptoms lasted approximately 30 minutes and improved with rest. The patient denies associated fever/chills, vomiting, diarrhea, pleurisy, cough, headache, near-syncope, syncope, recent sick contacts, or recent trauma. The patient reports he has recently been under a large amount of stress after the of his brother earlier this month, and caring for his sister who is sick with lung and brain cancer. The patient reports he has had a echocardiogram performed earlier this year which is performed annually secondary to his aortic stenosis, however patient states he has not had a stress test or catheterization in over 20 years. On exam the patient is well-appearing, in no acute distress, there is a grade 3/6 murmur, otherwise no findings. The patient's laboratory evaluation shows no leukocytosis, significant anemia, electrolyte abnormality, or CLAUDIA. The patient's LFTs are unremarkable. BNP normal, viral swabs negative. The patient's EKG shows chronic bradycardia unchanged from previous, no ischemia. Troponin was 9.2, downtrended to 6.8. Chest x-ray was unremarkable. The patient is not tachycardic, hypotensive, hypoxic, or experiencing any pleurisy or hemoptysis. No concern for PE at this time. The patient's heart score is 5, patient will be admitted for cardiac consultation and stress testing. Admission/Observation Consideration of admission/observation: Escalation of care including admission/observation considered Consult Healthcare Provider Management of the patient was discussed with: Hospitalist Lab Data [facility] Lab Attestation statement: I reviewed the patient's lab results. 03/09/25 16:07 03/09/25 16:07 Labs: Lab Results 03/09/25 03/09/25 Range/Units 16:07 18:37 WBC 7.9 (4.8-10.8) X10*3/uL RBC 4.55 L (4.60-5.80) X10*6/uL Hgb 12.2 L (14.0-18.0) g/dl Hct 35.3 L (42.0-52.0) % MCV 77.6 L (80.0-98.0) fL MCH 26.8 L (27.0-33.0) pg MCHC 34.6 (31.0-36.0) g/dl RDW 13.9 (11.0-16.0) % Plt Count 228 (160-400) X10*3/uL MPV 9.2 L (9.4-12.4) fL Immature Gran % (Auto) 0.3 (0.0-0.4) % Neut % (Auto) 54.2 (45-73) % Lymph % (Auto) 34.9 (20-40) % [place] % (Auto) 9.0 (2-11) % Eos % (Auto) 1.1 (0-4) % Baso % (Auto) 0.5 (0-2) % Lymph # (Auto) 2.8 (1.2-4.9) X10*3/uL [place] # (Auto) 0.7 (0.1-1.2) X10*3/uL Eos # (Auto) 0.1 (0.0-0.4) X10*3/uL Baso # (Auto) 0.0 (0.0-0.2) X10*3/uL Abs Immat Gran (auto) 0.02 (0.00-0.03) X10*3/uL Absolute Neuts (auto) 4.3 (2.0-8.3) x10*3/uL Absolute Nucleated RBC 0.000 (0.0-0.012) X10*3/uL Nucleated RBC % (auto) 0.0 (0.0-0.2) /100WBC Sodium 143 (135-145) mmol/L Potassium 3.3 (3.3-5.1) mmol/L Chloride 102 (96-108) mmol/L Carbon Dioxide 29 (22-29) mmol/L Anion Gap 15 (12-20) BUN 22 H (9-16) mg/dL Creatinine 1.34 (0.5-1.4) mg/dL Estim Creat Clear Calc 51.4 Estimated GFR 52 Random Glucose 92 (60-115) mg/dL Calcium 9.7 (8.4-10.2) mg/dL Magnesium 1.9 (1.6-2.6) mg/dL Total Bilirubin 0.7 (0.0-1.0) mg/dL Direct Bilirubin 0.2 (0.0-0.5) mg/dL AST 31 (5-37) U/L ALT 25 (0-40) U/L Alkaline Phosphatase 81 (39-117) U/L Troponin I High Sens 9.2 6.8 (<3.5-35.0) ng/L NT-Pro-B Natriuret Pep 108.4 (<300) pg/mL Total Protein 7.5 (6.5-8.0) g/dL Albumin 4.7 (3.5-5.0) g/dL COVID-19 (ABBIE) Negative (Negative) COVID-19 Clin Com See Note Influenza Type A (MICHELINE) Negative (Negative) Influenza Type B (MICHELINE) Negative (Negative) Influenza A & B Note See Note Independent Interpretation I performed an independent interpretation of an: EKG (EKG shows sinus bradycardia with a rate of 57, no evidence of acute ischemia, no ST elevation, no ectopy. QTC 418. Compared to previous on 07/09/2010 there are no acute morphology changes. When compared to additional previous EKGs back to 2003 patient is always bradycardic in the 50s.) Radiology Impression Discussion of test interpretation with radiology: I have reviewed the radiologist's reading. Radiologist Impression: 1 view chest x-ray. Comparison: None Findings: No consolidation or effusion. Cardiac and mediastinal contours appear unremarkable. Bones unremarkable. Impression: 1. No acute pulmonary disease. This document has been electronically signed by: New Jin MD on 03/09/2025 17:10:09 Scores Heart Score History: -2- highly suspicious ECG: -0- normal Age: -2- > or = 65 Risk factory: -1- 1 or 2 risk factors Troponin: -0- < or = normal limit Score: 5 Risk: 16.6% Discharge Plan Discharge Clinical Impression: Chest pain Qualifiers: Chest pain type: unspecified Qualified Code(s): R07.9 - Chest pain, unspecified Patient Disposition: Admitted As Inpatient Interventions: Admission Worksheet (ED) Last Done: 03/10/25 00:05 Discharge Date/Time: 03/10/25 00:48
[2025-03-09 16:13] LABS: MANUAL DIFF FLAG NO
[2025-03-09 16:14] LABS: Hematocrit 35.3 % (42.0-52.0); Hemoglobin 12.2 g/dl (14.0-18.0); Imm Gran Abs Auto 0.02 X10*3/uL (0.00-0.03); Imm Gran Pct Auto 0.3 % (0.0-0.4); Lymphocytes Absolute Auto 2.8 X10*3/uL (1.2-4.9); Mean Corpuscular HGB Conc 34.6 g/dl (31.0-36.0); Mean Corpuscular Hemoglobin 26.8 pg (27.0-33.0); Mean Corpuscular Volume 77.6 fL (80.0-98.0); NRBC Abs Auto 0.000 X10*3/uL (0.0-0.012); NRBC Pct Auto 0.0 /100WBC (0.0-0.2); Platelet Count 228 X10*3/uL (160-400); Red Blood Count 4.55 X10*6/uL (4.60-5.80); White Blood Count 7.9 X10*3/uL (4.8-10.8)
[2025-03-09 16:27] LABS: Alanine Aminotransferase 25 U/L (0-40); Albumin Level 4.7 g/dL (3.5-5.0); Alkaline Phosphatase 81 U/L (39-117); Anion Gap 15 (12-20); Aspartate Amino Transferase 31 U/L (5-37); Blood Urea Nitrogen 22 mg/dL (9-16); Calcium 9.7 mg/dL (8.4-10.2); Carbon Dioxide 29 mmol/L (22-29); Chloride 102 mmol/L (96-108); Creatinine Clr Calc Pharmacy 51.4; Estimated Glomerular Filt Rate 52; Magnesium 1.9 mg/dL (1.6-2.6); Potassium 3.3 mmol/L (3.3-5.1); Sodium 143 mmol/L (135-145); Total Protein 7.5 g/dL (6.5-8.0)
[2025-03-09 16:30] LABS: COVID-19 Test Negative (Negative); IDNOW Serial# 55D5AD1C; IDNOW Serial# 58CA691E; Influenza B2 Negative (Negative)
[2025-03-09 16:34] LABS: NT Pro B Type Natriuretic Pept 108.4 pg/mL (<300)
[2025-03-09 17:09] LABS: Troponin-I High Sensitivity 9.2 ng/L (<3.5-35.0)
--- OUTSIDE RECORDS SUMMARY | 2025-03-09 17:48 | XMS_ITS | Clinical Summary ---
Author Organization [facility] Address [address] [place] [address] Care Team Providers Care Auto Body Detailer Name Role Phone Oscar Grant MD Primary Care Provider [phone] Allergies No known active allergies Medications Medication Sig Dispensed Refills Start Date End Date Status aspirin EC 81 MG tablet Take 81 mg by mouth daily. 0 Active atenolol 50 MG TABS 1 tablet, chlorthalidone 25 MG TABS 1 tablet Take 1 tablet by mouth daily. 0 Active [place]-3 Fatty Acids (FISH OIL PO) Take 1,000 [...] age to complete this topic Care Teams Auto Body Detailer Relationship Specialty Start Date End Date Oscar Grant MD [address] [place] [address] DR CEJA [facility] [place] [id number] PCP - General Internal Medicine 08/25/17
--- OUTSIDE RECORDS SUMMARY | 2025-03-09 17:48 | XMS_ITS | Clinical Summary ---
Author Organization [facility] Address [address] [place] [phone] Phone Care Team Providers Care Newspaper Deliverer Name Role Phone Oscar Grant MD Primary Care Provider Allergies No known active allergies Social History Tobacco Use Types Packs/Day Years Used Date Smoking Tobacco: Light Smoker Alcohol Use Standard Drinks/Week Comments Yes 3 (1 standard drink = 0.6 oz pur e alcohol) Education Answer Date Recorded Are you interested in more education? Not on calvin e 09/10/2022 Are you concerned about learning? Not on file 09/10/2022 No 09/10/2022 No 09/10/2022 Digital Access Answer Date Recorded No 10/09/2022 No 10/09/2022 No 10/09/2022 Reliable internet access at home? Not on file 10/09/2022 Device with a working camera? Not on file Sex and Gender Information Value Date Recorded Sex Assigned at Not on file Legal Sex Male 1:17 AM EST Gender Identity Not on file Sexual Orientation Not on file Last Filed Vital Signs Vital Sign Reading Time Taken Comments Blood Pressure 120/53 07/11/2020 1:23 AM EST Pulse 66 07/11/2020 1:23 AM EST Temperature 35 C (95 F) 07/11/2020 1:23 AM EST Respiratory Rate 18 07/11/2020 1:23 AM EST Oxygen Saturation 97% 07/11/2020 1:23 AM EST Inhaled Oxygen Concentration - - Weight - - Height - - Body Mass Index - - Plan of Treatment Health Maintenance Due Date Last Done Comments Adult Td,Tdap Booster 1948 LIPID PANEL 1948 DEPRESSION SCREENING 1960 SMOKING Hx and SMOKELESS TOBACCO SCREENING 1961 HEPATITIS C SCREENING 1966 ZOSTER VACCINES (2 of 3) 03/12/2017 01/15/2017 PNEUMOCOCCAL VACCINES (50+ years) (2 of 2 - PCV) 12/23/2018 12/23/2017 RSV VACCINE (1 - 1-dose 75+ series) 12/31/2023 INFLUENZA VACCINE (#1) 2024 , 04/09/2019, 01/15/2017 COVID-19 VACCINE (3 - 2024-2 6 season) 2025 10/28/2020, 10/07/2020 HEPATITIS A VACCINES Aged Out No long er eligible based on patient's age to complete this topic HIB VACCINES Aged Out No longer eligi ble based on patient's age to complete this topic MENINGOCOCCAL VACCINES (ACWY) Aged Out No longer eligible based on patient's age to complete this topic MENINGOCOCCAL VACCINES (B) Aged Out N o longer eligible based on patient's age to complete this topic Medical Devices Not on file Insurance [facility] MEDICARE REPLACEMENT [facility] MEDICARE REPLACEMENT [facility] MEDICARE REPLACEMENT [facility] MEDICARE [facility]PLACEMENT [facility] MEDICARE REPLACEMENT [place] [id number] [place] [address] MEDICARE REPLACEMENT [place] [id number] [place] [address] MEDICARE REPLACEMENT [place] [id number] [place] [address] MEDICARE REPLACEMENT [facility] MEDICARE REPLACEMENT [facility] [employer]ANCE [facility] MEDICARE REPLACEMENT Care Teams Newspaper Deliverer Relationship Specialty Start Date End Date Oscar Grant MD [address] [place] [address] [place] [address] PCP - General Internal Medicine 07/11/20 Additional Source Comments The information contained in this document represents components of the legal health record. It is not the complete legal health record.[facility]
--- OUTSIDE RECORDS SUMMARY | 2025-03-09 17:48 | XMS_ITS | Clinical Summary ---
Author Organization [facility] Address [address] [place] [address] Phone Care Team Providers Care Maintenance Planning Clerk Name Role Phone Oscar Grant MD Primary Care Provider [phone] Allergies No known active allergies Medications aspirin [...] Description 07/31/2025 11:00 AM EDT Office Visit [facility] Hematology Oncology [address] [place] [id number] Yassine Alcazar MD [address] [place] [address] Health Maintenance Due Date Last Done Comments [...] MEDICARE ADVANTAGE [employer] MEDICARE Care Teams Maintenance Planning Clerk Relationship Specialty Start Date End Date Oscar Grant MD [address] [place] [address] Dr V[place], [place] [address] PCP - General Internal Medicine 08/25/17
--- OUTSIDE RECORDS SUMMARY | 2025-03-09 17:48 | XMS_ITS | Encounter Summary ---
Author Organization [facility] Address [address] [place] [phone] Phone Care Team Providers Care Shuttle Spotter Name Role Phone Oscar Grant MD Primary Care Provider Encounter Details Date Type Department Care Team (Late st Contact Info) Description 07/11/2020 Procedure Pass [facility], Ct Scan - [address] [address] Social History Tobacco Use Types Packs/Day Years [...] Author No Risk Indicated 07/11/2020 1:46 AM Mtaty Ramirez RN * [place] Suicide Severity Rating Scale (Screener/Recent Self-Report) Question [...] on filedocumented in this encounter Care Teams Shuttle Spotter Relationship Specialty Start Date End Date Oscar Grant MD [address] [place] [address] [place] [address] PCP - General Internal Medicine 07/11/20 documented as of this encounter Additional Source Comments The information contained in this document represents components of the legal health record. It is not the complete legal health record.[facility]
--- OUTSIDE RECORDS SUMMARY | 2025-03-09 17:48 | XMS_ITS | Clinical Summary ---
Author Organization [facility] Address [address] [address] Phone Care Team Providers Care Entry Specialist Name Role Phone Oscar Grant MD Primary Care Provider [phone] Allergies No known active allergies Medications aspirin [...] Visit [facility] [address] [place] [phone] Nawaf Keller MD [address] [facility] [address] [place] [address] Health Maintenance Due Date Last Done Comments Pneumococcal Vaccine: 50+ Years (2 of 2 - PPSV23, PCV20, or PCV21) 02/19/2018 12/25/2017, 05/19/2016 Influenza Vaccine (#1) 2025 Pneumococcal Vaccine: Peds (0 to 5 Years) and At-Risk Patients (6 to 49 Years) Discontinued 12/25/2017, 05/19/2016 Hepatitis B Vaccine Aged Out No longe r eligible based on patient's age to complete this topic Insurance [facility] Medicare Care Teams Entry Specialist Relationship Specialty Start Date End Date Oscar Grant MD [address] [place] [address] [address] [place] PCP - General Internal Medicine 12/11/20
--- OUTSIDE RECORDS SUMMARY | 2025-03-09 17:48 | XMS_ITS | Encounter Summary ---
Author Organization [facility] Address [address] [place] [phone] Phone Care Team Providers Care Veterinary Bacteriologist Name Role Phone Oscar Grant MD Primary Care Provider Encounter Details Date Type Department Care Team (Late st Contact Info) Description 07/11/2020 Procedure Pass [facility], Ct Scan - [address] [address] Social History Tobacco Use Types Packs/Day Years [...] 07/11/2020 1:46 AM Matty Ramirez RN * [place] Suicide Severity Rating Scale (Screener/Recent Self-Report) Question [...] on filedocumented in this encounter Care Teams Veterinary Bacteriologist Relationship Specialty Start Date End Date Oscar Grant MD [address] [place] [address] [place] [address] PCP - General Internal Medicine 07/11/20 documented as of this encounter Additional Source Comments The information contained in this document represents components of the legal health record. It is not the complete legal health record.[facility]
[2025-03-09 19:12] LABS: Troponin-I High Sensitivity 6.8 ng/L (<3.5-35.0)
[2025-03-09 19:25] VITALS: BP 140/71; PULSE 56; RESP 19; TEMP 36.6; O2SAT 97
[2025-03-09 22:31] LABS: D Dimer High Sensitivity 195 NG/ML
[2025-03-10 00:46] VITALS: BMI 28.5
[2025-03-10] MEDS: 0.9 % Sodium Chloride Flush 3 ML SYRINGE IVFLUSH (00:52)
--- NOTE | 2025-03-10 01:20 | PM.IMHP ---
History of Present Illness Date of Service: 03/09/25 Chief Complaint: Chest pain 74-year-old male with a past medical history of HTN, HLD, prediabetes, arthritis, anemia, polyneuropathy; presented to the hospital today with a chief complaint of chest pain. Patient mentioned that he developed chest pain prior to coming to the hospital, located in the center of the chest, nonradiating, tight in nature, associated nausea vomiting and diaphoresis; also had shortness of breath and dyspnea on exertion at the same time. Subsequently came to the ER for further evaluation. By the time of my interview patient message chest pain resolved. Denies any fevers and chills. Denies any sick contacts: Denies any recent travel. Review of all other systems is negative except mentioned above ER course: Per ER team, patient was chest pain-free; EKG nonischemic; troponin negative; [facility] Medical History Neuropathy of both feet Osteoarthritis of knees, bilateral Normocytic anemia Prediabetes Hypokalemia Non-rheumatic aortic stenosis History of heartburn Colon cancer screening Hypertension Arthritis Hyperlipidemia Family History Sister Lung cancer Sister Cancer Mother Breast cancer Surgical History History of colonoscopy (~03/05/22) History of back surgery History of cholecystectomy Hx of repair of right rotator cuff History of arthroscopy of both knees Hx of arthroscopy of right knee History of surgical removal of skin lesion (~2021) Social History Household Members: None Housing: House Housing Other:: rents from sister in 2 family house Do you presently have visiting nurse or other home services: No Alcohol intake: former Year quit: 2019 Patient Tobacco Use Status: Never used Tobacco e-Cigarette/Vaping Use: Never Used service: Yes Meds Allergies Allergy/AdvReac Type Severity Reaction Status Date / Time No Known Allergies Allergy Verified 03/20/25 08:13 Active Medications: Current Medications Acetaminophen (Acetaminophen 325 Mg Tablet) 650 mg PO Q6H PRN PRN Reason: Pain, Mild 1-3,fever,headache Calcium Carbonate (Calcium Carbonate 750 Mg Tab.Chew) 750 mg PO Q4H PRN PRN Reason: Heartburn Enoxaparin Sodium (Enoxaparin Sodium 40 Mg/0.4 Ml Syringe) 40 mg SUBCUT Q24H [facility] Last Admin: 03/09/25 22:34 Dose: 40 mg Influenza Virus Vaccine (Flu Vacc [id number](6mo Up)/Pf 0.5 Ml Syringe) 0.5 ml IM .ONCE ONE Stop: 03/10/25 09:01 Magnesium Hydroxide (Milk Of Magnesia 30 Ml Oral.Susp) 30 ml PO DAILY PRN PRN Reason: Constipation Melatonin (Melatonin 3 Mg Tablet) 6 mg PO BEDTIME PRN PRN Reason: Insomnia Sodium Chloride (0.9 % Sodium Chloride Flush 3 Ml Syringe) 3 ml IVFLUSH QSHIFT [facility] Last Admin: 03/10/25 00:52 Dose: 3 ml Home Medications ?Medication ?Instructions ?Recorded ?Confirmed ?Last Taken ?Type aspirin 81 mg tablet,delayed 81 mg PO DAILY 11/11/21 03/11/25 03/09/25 History release (Adult Low Dose Aspirin) cyanocobalamin (vitamin B-12) 1,000 mcg PO DAILY 11/11/21 03/11/25 03/09/25 History 1,000 mcg capsule lisinopril 20 mg tablet 20 mg PO DAILY 11/11/21 03/11/25 03/09/25 History omega 8-gpt-qim-fish oil 60 mg-90 1 cap PO DAILY 11/11/21 03/11/25 03/09/25 History mg-500 mg capsule (Fish Oil) potassium chloride 20 mEq 20 meq PO DAILY 01/02/25 03/11/25 03/09/25 History tablet,extended release multivitamin 1 tab PO DAILY 03/10/25 03/11/25 03/09/25 History Physical Exam Vital Signs and Narrative: Vital Signs: Last Vital Signs Temp 98 F 03/09/25 19: Pulse 56 03/09/25 19:25 Resp 19 03/09/25 19:25 BP 140/71 H 03/09/25 19:25 Pulse Ox 97 03/09/25 19:25 O2 Del Method Room Air 03/09/25 19:25 BMI result Body Mass Index 28.5 Gen: Appears be in no acute distress HEENT: NCAT, Moist mucosa. Pulmonary: Vesicular breath sounds, fair air entry CVS: Normal S1-S2 Abdomen: BS+, Soft, Nontender Extremities: Warm well perfused Neuro: Alert and awake. Results Labs 03/10/25 06:46 03/10/25 06:46 Labs: Laboratory Results - last 24 hr 03/09/25 03/09/25 03/09/25 16:07 18:37 22:15 MCV 77.6 L MCH 26.8 L MCHC 34.6 RDW 13.9 Plt Count 228 MPV 9.2 L Immature Gran % (Auto) 0.3 Neut % (Auto) 54.2 Lymph % (Auto) 34.9 [place] % (Auto) 9.0 Eos % (Auto) 1.1 Baso % (Auto) 0.5 Lymph # (Auto) 2.8 [place] # (Auto) 0.7 Eos # (Auto) 0.1 Baso # (Auto) 0.0 Abs Immat Gran (auto) 0.02 Absolute Neuts (auto) 4.3 Absolute Nucleated RBC 0.000 Nucleated RBC % (auto) 0.0 D-Dimer High Sensitivty 195 Anion Gap 15 Estim Creat Clear Calc 51.4 Estimated GFR 52 Random Glucose 92 Calcium 9.7 Magnesium 1.9 Total Bilirubin 0.7 Direct Bilirubin 0.2 AST 31 ALT 25 Alkaline Phosphatase 81 Troponin I High Sens 9.2 6.8 NT-Pro-B Natriuret Pep 108.4 Total Protein 7.5 Albumin 4.7 COVID-19 (ABBIE) Negative COVID-19 Clin Com See Note Influenza Type A (MICHELINE) Negative Influenza Type B (MICHELINE) Negative Influenza A & B Note See Note Assessment and Plan (1) Chest pain: Qualifiers: Chest pain type: unspecified Qualified Code(s): R07.9 - Chest pain, unspecified Status: Acute Plan 74-year-old male with a past medical history of HTN, HLD, prediabetes, arthritis, anemia, polyneuropathy; presented to the hospital today with a chief complaint of chest pain. Chest pain/CORTEZ: Patient currently chest pain free EKG nonischemic Troponin negative Telemetry Cardiology consult Will obtain D-dimer HTN/HLD: Continue home medications once med rec is completed by the pharmacy in a.m.. DVT prophylaxis: Lovenox Code status: Full code Quality Stroke Does the patient have a stroke diagnosis?: No VTE Prior VTE?: No VTE Risk Level:: Medical - moderate - high VTE Device Contraindication: Treatment Not Indicated VTE Drug Contraindication: N/A - Med Ordered
[2025-03-10 01:30] VITALS: BP 137/66; PULSE 51; RESP 20; TEMP 36.3; O2SAT 99
[2025-03-10 04:00] VITALS: BP 146/67; PULSE 46; RESP 20; TEMP 36.3; O2SAT 94
[2025-03-10 08:00] VITALS: BP 141/56; PULSE 51; RESP 20; TEMP 36.1; O2SAT 98
[2025-03-10 08:04] LABS: MANUAL DIFF FLAG NO
[2025-03-10 08:13] LABS: Hematocrit 34.7 % (42.0-52.0); Hemoglobin 11.7 g/dl (14.0-18.0); Imm Gran Abs Auto 0.02 X10*3/uL (0.00-0.03); Imm Gran Pct Auto 0.3 % (0.0-0.4); Lymphocytes Absolute Auto 2.1 X10*3/uL (1.2-4.9); Mean Corpuscular HGB Conc 33.7 g/dl (31.0-36.0); Mean Corpuscular Hemoglobin 26.5 pg (27.0-33.0); Mean Corpuscular Volume 78.7 fL (80.0-98.0); NRBC Abs Auto 0.000 X10*3/uL (0.0-0.012); NRBC Pct Auto 0.0 /100WBC (0.0-0.2); Platelet Count 212 X10*3/uL (160-400); Red Blood Count 4.41 X10*6/uL (4.60-5.80); White Blood Count 5.7 X10*3/uL (4.8-10.8)
--- NOTE | 2025-03-10 08:24 | MHC.CM.PN ---
CM met with Patient at bedside and addressed MEDINA with him, providing Patient with the original and a copy has been placed on the chart. Patient lives in a 2 family house on the second floor, with his Sister on the first floor. 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 CM has initiated and will follow for dc planning. Sister will transport to home at dc.
[2025-03-10 08:31] LABS: Alanine Aminotransferase 22 U/L (0-40); Albumin Level 4.2 g/dL (3.5-5.0); Alkaline Phosphatase 72 U/L (39-117); Anion Gap 12 (12-20); Aspartate Amino Transferase 28 U/L (5-37); Blood Urea Nitrogen 20 mg/dL (9-16); Calcium 9.1 mg/dL (8.4-10.2); Carbon Dioxide 30 mmol/L (22-29); Chloride 105 mmol/L (96-108); Creatinine Clr Calc Pharmacy 60.3; Estimated Glomerular Filt Rate > 60; Potassium 3.0 mmol/L (3.3-5.1); Sodium 144 mmol/L (135-145); Total Protein 6.8 g/dL (6.5-8.0)
--- NOTE | 2025-03-10 08:36 | PHA.MEDREC ---
Addendum entered by Shira Jean RPh 03/10/25 08:42: reviewed by [facility]. Original Note: Pharmacy Consult ? Medication Reconciliation Pharmacy has completed the medication reconciliation. Confirmed medication list with patient and against Pharmacy claims. Patient last took all morning medications Tuesday, and last took his nighttime medication (gabapentin) on Tuesday.
--- NOTE | 2025-03-10 09:52 | PM.CNCAR ---
History of Present Illness History of Present Illness Date of Service: 03/10/25 Requesting physician: Bud Cole Consult reason: chest pain Chief complaint: sob Narrative: I was consulted to see Juan Alberto in cardiology consultation today for chest pain. He is a pleasant 74-year-old male with prior aortic stenosis which is moderate by echocardiogram, prediabetes, hypertension, polyneuropathy and arthritis. Patient said he was in usual state of health yesterday was fixing some window screens and then walked up stairs to grab something to eat and developed some chest tightness. He said he felt like that was tightness in his chest associated with some nausea and sweats. This happened around 315 in the afternoon. Patient immediately drove to the emergency room. By the time he came to the emergency room on 08/12 his symptoms already resolving. When he came to the emergency room symptoms have resolved. EKGs not show any acute changes. Troponin x2 are negative. He said he walks regularly every morning 1 to 1-1/2 hours in his not had any exertional symptoms recently. Denies any worsening shortness of breath, orthopnea, PND. No prolonged palpitation irregular heartbeat. He has never experienced this kind of chest pain before. He has no prior history of coronary artery disease. Review of Systems Constitutional: Constitutional: Reports no additional constitutional complaints Eyes: Eyes: Reports no additional eye complaints Cardiovascular: Cardiovascular: Reports chest pain with activity (Associated with nausea and diaphoresis), Denies lightheadedness and Denies Loss of Consciousness Respiratory: Respiratory: Reports no additional respiratory complaints Gastrointestinal: Gastrointestinal: Reports no additional gastrointestinal complaints Genitourinary: Genitourinary: Reports no additional male genitourinary complaints Musculoskeletal: Musculoskeletal: Reports no additional musculoskeletal complaints Integumentary/Breasts: Skin/Breast: Reports system reviewed and no additional complaints, except as docu Neurologic: Reports system reviewed and no additional complaints, except as documented Psychiatric: Psychiatric: Reports no additional psychiatric complaints Endocrine: Endocrine: Reports no additional endocrine complaints [facility] Past Medical History Medical History Neuropathy of both feet Osteoarthritis of knees, bilateral Normocytic anemia Prediabetes Hypokalemia Non-rheumatic aortic stenosis History of heartburn Colon cancer screening Hypertension Arthritis Hyperlipidemia Family History Family History Sister Lung cancer Sister Cancer Mother Breast cancer Surgical History Surgical History History of colonoscopy (~03/05/22) History of back surgery History of cholecystectomy Hx of repair of right rotator cuff History of arthroscopy of both knees Hx of arthroscopy of right knee History of surgical removal of skin lesion (~2021) Social History Social History Household Members: None Housing: House Housing Other:: rents from sister in 2 family house Do you presently have visiting nurse or other home services: No Alcohol intake: former Year quit: 2019 Patient Tobacco Use Status: Never used Tobacco Smoked in Last 30 Days: No e-Cigarette/Vaping Use: Never Used Use of substances other than those prescribed or required for medical reasons: No Currently Displaying Signs/Symptoms of Drug Intoxication Withdrawal: No Have you been hit, kicked, punched, or otherwise hurt by someone within the past year? If so, by whom?: No Do you feel safe in your current relationship?: No Current Relationship Is there a partner from a previous relationship who is making you feel unsafe now?: No Are you made to feel afraid or neglected: No Religion Healthcare Practices: Declined Advance Directives: No Advance Directives Information Provided: No Do you have a plan to hurt others: No Plan Recently lost weight without trying: No Eating poorly because of decreased appetite: No Nutrition Risks: No Nutritional Risk Poor oral hygiene: No service: Yes Meds Allergies Allergy/AdvReac Type Severity Reaction Status Date / Time No Known Allergies Allergy Verified 03/09/25 15:51 Active Medications: Current Medications Acetaminophen (Acetaminophen 325 Mg Tablet) 650 mg PO Q6H PRN PRN Reason: Pain, Mild 1-3,fever,headache Calcium Carbonate (Calcium Carbonate 750 Mg Tab.Chew) 750 mg PO Q4H PRN PRN Reason: Heartburn Enoxaparin Sodium (Enoxaparin Sodium 40 Mg/0.4 Ml Syringe) 40 mg SUBCUT Q24H [facility] Last Admin: 03/09/25 22:34 Dose: 40 mg Magnesium Hydroxide (Milk Of Magnesia 30 Ml Oral.Susp) 30 ml PO DAILY PRN PRN Reason: Constipation Melatonin (Melatonin 3 Mg Tablet) 6 mg PO BEDTIME PRN PRN Reason: Insomnia Sodium Chloride (0.9 % Sodium Chloride Flush 3 Ml Syringe) 3 ml IVFLUSH QSHIFT REPLACED BY [facility] Last Admin: 03/10/25 08:34 Dose: Not Given Home Medications ?Medication ?Instructions ?Recorded ?Confirmed ?Last Taken ?Type aspirin 81 mg tablet,delayed 81 mg PO DAILY 11/11/21 03/10/25 03/09/25 History release (Adult Low Dose Aspirin) atenolol 50 mg-chlorthalidone 25 1 tab PO DAILY 11/11/21 03/10/25 03/09/25 History mg tablet atorvastatin 20 mg tablet 20 mg PO DAILY 11/11/21 03/10/25 03/09/25 History cyanocobalamin (vitamin B-12) 1,000 mcg PO DAILY 11/11/21 03/10/25 03/09/25 History 1,000 mcg capsule lisinopril 20 mg tablet 20 mg PO DAILY 11/11/21 03/10/25 03/09/25 History nifedipine 30 mg tablet,extended 30 mg PO DAILY 11/11/21 03/10/25 03/09/25 History release 24 hr omega 4-stb-urn-fish oil 60 mg-90 1 cap PO DAILY 11/11/21 03/10/25 03/09/25 History mg-500 mg capsule (Fish Oil) potassium chloride 20 mEq 20 meq PO DAILY 01/02/25 03/10/25 03/09/25 History tablet,extended release multivitamin 1 tab PO DAILY 03/10/25 03/10/25 03/09/25 History Physical Exam Vital Signs: Vital Signs: Last Vital Signs Temp 97.0 F 03/10/25 08:00 Pulse 51 03/10/25 08:00 Resp 20 03/10/25 08:00 BP 141/56 H 03/10/25 08:00 Pulse Ox 98 03/10/25 08:00 O2 Del Method Room Air 03/10/25 08:00 BMI result Body Mass Index 28.5 Const: General: cooperative, comfortable, no acute distress, alert, awake and Physically active Nutritional Appearance: overweight Orientation/consciousness: patient oriented x3 Limitations: no limitations HEENT: Head: Yes normocephalic and Yes atraumatic Neck: Neck: Yes trachea midline, Yes supple and Yes no JVD Resp: Effort & Inspection: normal respiratory effort Auscultation: clear to auscultation bilaterally Cardio: Jugular venous distension: no JVD Palpation: normal PMI Rate: regular rate Rhythm: regular rhythm Heart sounds: S1 normal heart sound present, S2 normal heart sound present, no click, no gallops and Murmur heart sound present systolic mid GI: Auscultation: normal bowel sounds Skin: General skin exam: no rashes or lesions noted Neuro: General: patient oriented x3 and no focal motor deficits Extrem: General: Yes no clubbing, cyanosis or edema Objective Labs and Meds 03/10/25 06:46 03/10/25 06:46 Lab results: Laboratory Results - last 24 hr 03/09/25 03/09/25 03/09/25 16:07 18:37 22:15 WBC 7.9 RBC 4.55 L Hgb 12.2 L Hct 35.3 L MCV 77.6 L MCH 26.8 L MCHC 34.6 RDW 13.9 Plt Count 228 MPV 9.2 L Immature Gran % (Auto) 0.3 Neut % (Auto) 54.2 Lymph % (Auto) 34.9 [place] % (Auto) 9.0 Eos % (Auto) 1.1 Baso % (Auto) 0.5 Lymph # (Auto) 2.8 [place] # (Auto) 0.7 Eos # (Auto) 0.1 Baso # (Auto) 0.0 Abs Immat Gran (auto) 0.02 Absolute Neuts (auto) 4.3 Absolute Nucleated RBC 0.000 Nucleated RBC % (auto) 0.0 D-Dimer High Sensitivty 195 Sodium 143 Potassium 3.3 Chloride 102 Carbon Dioxide 29 Anion Gap 15 BUN 22 H Creatinine 1.34 Estim Creat Clear Calc 51.4 Estimated GFR 52 Random Glucose 92 Calcium 9.7 Magnesium 1.9 Total Bilirubin 0.7 Direct Bilirubin 0.2 AST 31 ALT 25 Alkaline Phosphatase 81 Troponin I High Sens 9.2 6.8 NT-Pro-B Natriuret Pep 108.4 Total Protein 7.5 Albumin 4.7 COVID-19 (ABBIE) Negative COVID-19 Clin Com See Note Influenza Type A (MICHELINE) Negative Influenza Type B (MICHELINE) Negative Influenza A & B Note See Note 03/10/25 06:46 WBC 5.7 RBC 4.41 L Hgb 11.7 L Hct 34.7 L MCV 78.7 L MCH 26.5 L MCHC 33.7 RDW 14.0 Plt Count 212 MPV 9.8 Immature Gran % (Auto) 0.3 Neut % (Auto) 49.4 Lymph % (Auto) 36.6 [place] % (Auto) 10.8 Eos % (Auto) 1.9 Baso % (Auto) 1.0 Lymph # (Auto) 2.1 [place] # (Auto) 0.6 Eos # (Auto) 0.1 Baso # (Auto) 0.1 Abs Immat Gran (auto) 0.02 Absolute Neuts (auto) 2.8 Absolute Nucleated RBC 0.000 Nucleated RBC % (auto) 0.0 D-Dimer High Sensitivty Sodium 144 Potassium 3.0 L Chloride 105 Carbon Dioxide 30 H Anion Gap 12 BUN 20 H Creatinine 1.14 Estim Creat Clear Calc 60.3 Estimated GFR > 60 Random Glucose 107 Calcium 9.1 D Magnesium Total Bilirubin 0.8 Direct Bilirubin AST 28 ALT 22 Alkaline Phosphatase 72 Troponin I High Sens NT-Pro-B Natriuret Pep Total Protein 6.8 Albumin 4.2 COVID-19 (ABBIE) COVID-19 Clin Com Influenza Type A (MICHELINE) Influenza Type B (MICHELINE) Influenza A & B Note Assessment and Plan (1) Chest pain: Qualifiers: Chest pain type: unspecified Qualified Code(s): R07.9 - Chest pain, unspecified Status: Acute Patient with new onset chest pain syndrome which is concerning for possible underlying obstructive coronary artery disease although he has no evidence of acute coronary syndrome with normal EKGs and normal troponins. His risk for having acute cardiovascular event is low. His overall risk for presence of coronary artery disease is high. He will need provocative testing in the near future. Discussed with him saying that I can probably do this early this week as an outpatient rather than keeping him in the hospital. He is agreeable. Will send him home. He is advise low activity level at home. Will set him up for exercise myocardial perfusion imaging in his day or 2 as an outpatient. He is advised to continue aspirin therapy. Management was discussed. If he develops recurrent acute discomfort he is advised to seek emergency care. Continues usual statins as well as antihypertensive therapy. Will follow up in the clinic in near future. Procedures Date of Service Date of Service: 03/10/25
--- NOTE | 2025-03-10 09:52 | PM.DS ---
DS: Providers Provider Date of Service: 03/10/25 Date of admission: 03/09/25 20:53 Date of discharge: 03/10/25 Primary care physician: Clayton Rojas MD Consults: 03/09/25 20:53 Consult to Cardiology Routine Consulting Provider: [facility] Reason for consultation: chest pain DS: Summary Hospital Course Hospital Course: from initial hpi: 74-year-old male with a past medical history of HTN, HLD, prediabetes, arthritis, anemia, polyneuropathy; presented to the hospital today with a chief complaint of chest pain. Patient mentioned that he developed chest pain prior to coming to the hospital, located in the center of the chest, nonradiating, tight in nature, associated nausea vomiting and diaphoresis; also had shortness of breath and dyspnea on exertion at the same time. Subsequently came to the ER for further evaluation. By the time of my interview patient message chest pain resolved. Denies any fevers and chills. Denies any sick contacts: Denies any recent travel. Review of all other systems is negative except mentioned above ER course: Per ER team, patient was chest pain-free; EKG nonischemic; troponin negative; hospital course Patient was admitted for chest pain. He ruled out for acute coronary syndrome. Was seen by Cardiology recommended outpatient follow up for stress test. For hypertension hyperlipidemia was continued on his home medications. Patient chest pain has resolved and he will be discharged home. Time Attestation Discharge Coordination Time (in mins): 33 Quality: Safe Use of Opioids Does Pt have an Active Cancer Diagnosis on the Problem List?: No Quality: Stroke Does the patient have a stroke diagnosis?: No Physical Exam Exam: Exam: General: AO X 3, no acute distress Resp: CTA bilateral, no accessory muscles used CVS: S1,S2,RRR GI: soft, non tender, non distended Neuro: motor grossly intact, alert Psych: appropriate affect, appropriate insight Vital Signs: Vital Signs: Last Vital Signs Temp 97.0 F 03/10/25 08:00 Pulse 51 03/10/25 08:00 Resp 20 03/10/25 08:00 BP 141/56 H 03/10/25 08:00 Pulse Ox 98 03/10/25 08:00 O2 Del Method Room Air 03/10/25 08:00 BMI result Body Mass Index 28.5 DS: Data Data Completed and Pending Labs on day of discharge: Laboratory Results - last 24 hr 03/09/25 03/09/25 03/09/25 16:07 18:37 22:15 WBC 7.9 RBC 4.55 L Hgb 12.2 L Hct 35.3 L MCV 77.6 L MCH 26.8 L MCHC 34.6 RDW 13.9 Plt Count 228 MPV 9.2 L Immature Gran % (Auto) 0.3 Neut % (Auto) 54.2 Lymph % (Auto) 34.9 [place] % (Auto) 9.0 Eos % (Auto) 1.1 Baso % (Auto) 0.5 Lymph # (Auto) 2.8 [place] # (Auto) 0.7 Eos # (Auto) 0.1 Baso # (Auto) 0.0 Abs Immat Gran (auto) 0.02 Absolute Neuts (auto) 4.3 Absolute Nucleated RBC 0.000 Nucleated RBC % (auto) 0.0 D-Dimer High Sensitivty 195 Sodium 143 Potassium 3.3 Chloride 102 Carbon Dioxide 29 Anion Gap 15 BUN 22 H Creatinine 1.34 Estim Creat Clear Calc 51.4 Estimated GFR 52 Random Glucose 92 Calcium 9.7 Magnesium 1.9 Total Bilirubin 0.7 Direct Bilirubin 0.2 AST 31 ALT 25 Alkaline Phosphatase 81 Troponin I High Sens 9.2 6.8 NT-Pro-B Natriuret Pep 108.4 Total Protein 7.5 Albumin 4.7 COVID-19 (ABBIE) Negative COVID-19 Clin Com See Note Influenza Type A (MICHELINE) Negative Influenza Type B (MICHELINE) Negative Influenza A & B Note See Note 03/10/25 06:46 WBC 5.7 RBC 4.41 L Hgb 11.7 L Hct 34.7 L MCV 78.7 L MCH 26.5 L MCHC 33.7 RDW 14.0 Plt Count 212 MPV 9.8 Immature Gran % (Auto) 0.3 Neut % (Auto) 49.4 Lymph % (Auto) 36.6 [place] % (Auto) 10.8 Eos % (Auto) 1.9 Baso % (Auto) 1.0 Lymph # (Auto) 2.1 [place] # (Auto) 0.6 Eos # (Auto) 0.1 Baso # (Auto) 0.1 Abs Immat Gran (auto) 0.02 Absolute Neuts (auto) 2.8 Absolute Nucleated RBC 0.000 Nucleated RBC % (auto) 0.0 D-Dimer High Sensitivty Sodium 144 Potassium 3.0 L Chloride 105 Carbon Dioxide 30 H Anion Gap 12 BUN 20 H Creatinine 1.14 Estim Creat Clear Calc 60.3 Estimated GFR > 60 Random Glucose 107 Calcium 9.1 D Magnesium Total Bilirubin 0.8 Direct Bilirubin AST 28 ALT 22 Alkaline Phosphatase 72 Troponin I High Sens NT-Pro-B Natriuret Pep Total Protein 6.8 Albumin 4.2 COVID-19 (ABBIE) COVID-19 Clin Com Influenza Type A (MICHELINE) Influenza Type B (MICHELINE) Influenza A & B Note Discharge Plan Discharge Anticipated Discharge Date/Time: 03/10/25 09:44 Patient Disposition: Home, Self-Care Discharge Diagnosis: chest pain Referrals: Clayton Rojas MD [Primary Care Provider, Internal Medicine] - 1 Week Discharge Medications: Continued gabapentin 300 mg capsule 300 mg PO BEDTIME Qty: 90 0RF multivitamin Tablet 1 tab PO DAILY atenolol-chlorthalidone 50-25 mg tablet 1 tab PO DAILY atorvastatin 20 mg tablet 20 mg PO DAILY lisinopril 20 mg tablet 20 mg PO DAILY nifedipine 30 mg tablet extended release 24hr 30 mg PO DAILY aspirin [Adult Low Dose Aspirin] 81 mg tablet,delayed release (DR/EC) 81 mg PO DAILY omega 1-prd-cpv-fish oil [Fish Oil] 60-90-500 mg capsule 1 cap PO DAILY cyanocobalamin (vitamin B-12) 1,000 mcg capsule 1,000 mcg PO DAILY potassium chloride 20 mEq tablet extended release 20 meq PO DAILY Discharge Orders: Discharge Order (Routine); Ordered 03/10/25 Ordered By: Bud Cole Diet: Advance to usual diet Activity on Discharge: As tolerated Stand Alone Forms: Patient Portal Discharge page Print Language: Ethiopian Care Plan Goals: work up cheat pain Health Concerns: chest pain Plan of Treatment: follow up cardio for stress test Assessment: see above
--- NOTE | 2025-03-10 10:07 | MHC.CM.PN ---
Patient has been medically cleared for dc to home today, self care.
[2025-03-10] MEDS: Flu Vacc TS2025-26(6mo up)/PF 0.5 ML SYRINGE IM (11:24)
== END 2025-03-10 13:29 | disposition home or self-care (01) ==
LOC: HO.ED 20:45 → HO.EDOVER 20:57 → HO.IMC 23:45
PROVIDERS: Physician Assistant; Admitting Provider Hospitalist; Emergency Provider Emergency Medicine Emergency Medical Services; PCP Internal Medicine; Visit Provider Internal Medicine
DX: R07.9 Chest pain, unspecified (principal); R06.02 Shortness of breath; I10 Essential (primary) hypertension; E78.5 Hyperlipidemia, unspecified; R11.0 Nausea; R61 Generalized hyperhidrosis; R00.1 Bradycardia, unspecified; R73.03 Prediabetes; D64.9 Anemia, unspecified; Z23 Encounter for immunization; Z03.818 Encounter for observation for suspected exposure to other biological agents ruled out; Z79.899 Other long term (current) drug therapy
CPT/HCPCS: 36415; 71045; 80048; 80053; 80076; 83735; 83880; 84484; 85025; 85379; 87502; 87635; 90471; 90656; 93005; 96372; 99222; 99285; J1650

== ENCOUNTER → 2025-03-09 15:50 | Outpatient (BNV) | payer MEDICARE, SELFPAY | PROVIDERS: PCP Internal Medicine; Visit Provider Radiology Diagnostic Radiology | DX: R07.9 Chest pain, unspecified (principal); R06.02 Shortness of breath | CPT/HCPCS: 71045 ==

== ENCOUNTER → 2025-03-09 20:53 | Outpatient (BNV) | payer MEDICARE, SELFPAY | PROVIDERS: Admitting Provider Hospitalist; Emergency Provider Emergency Medicine Emergency Medical Services; PCP Internal Medicine; Visit Provider Internal Medicine Cardiovascular Disease | DX: R07.9 Chest pain, unspecified (principal) | CPT/HCPCS: 93010; 99222 ==

== ENCOUNTER → 2025-03-09 20:53 | Outpatient (BNV) | payer MEDICARE, SELFPAY | PROVIDERS: Admitting Provider Hospitalist; Emergency Provider Emergency Medicine Emergency Medical Services; PCP Internal Medicine; Visit Provider Internal Medicine | DX: R07.9 Chest pain, unspecified (principal) | CPT/HCPCS: 99239 ==

== ENCOUNTER → 2025-03-13 07:48 | Outpatient (REF) | payer MEDICARE, SELFPAY ==
--- NOTE | ~2025-03-13 | NM_ITS ---
EXERCISE MYOCARDIAL PERFUSION STUDY INDICATION: Chest pain, shortness of breath TECHNIQUE: The patient was brought in for an exercise perfusion study on 03/13/2025. Patient performed exercise as per Chandu protocol and was injected 30 mCi of sestamibi once target heart rate was achieved. Images were obtained using the SPECT gamma camera interlaced with the gating device. Images were obtained in supine position. Resting perfusion study was performed on 03/14/2025. Patient was administered 30 mCi of sestamibi intravenously at rest. Images were then obtained in supine position. Total DLP 76 mGy-cm. Images were processed with the software and compared side to side in short axis, horizontal long axis and vertical long axis views. FINDINGS: Raw aquisition reviewed. The stress perfusion study showed decreased tracer uptake along the inferior wall; distal inferolateral wall; basal septal With CT attenuation correction, some improvement in the inferior aspect and hence could have components of diaphragmatic attenuation artifact. With regard septum grossly reduced. The gated study shows diminished LV systolic function with calculated LVEF of 49%. LV cavity is normal in size. The gated study shows normal wall thickening and contraction of segments. Resting study shows diminished tracer uptake along the inferior wall including the distal inferolateral wall. There is some improvement with CT attenuation correction suggestive of diaphragmatic attenuation artifact. Diminished tracer uptake in the basal septum. Gating at rest reveals normal wall motion with ejection fraction at 61%. The findings are consistent with fixed defect in the inferior wall and distal inferolateral wallNo and basal septum. No clear reversible defects. NM/NM cardiolite stress test IMPRESSION: 1. Myocardial perfusion imaging study shows no clear evidence of ischemia. Fixed defects in the inferior wall, distal part of inferolateral wall, basal septum, possibly all artifactual. 2. Gated LVEF is 49% during stress and 61% during rest. Correlate with echocardiogram. 3. Transient ischemic dilatation not present. EKG component of the test reported separately. Electronically signed by: Brody Rahman MD 03/14/2025 04:10 PM EDT
--- NOTE | 2025-03-13 07:51 | CA_ITS ---
Acquisition Time: 2025-03-13 08:01:14 Total Exercise Time: 00:07:30 Test Indications: CP, SOB Medications: SEE H&P Protocol: LEX Max HR: 131 BPM 90% of Pred: 144 BPM Max BP: 130/80 mmHG Max Work Load: 9.3 METS Exercise stress test with exercise 7 mins 30 secs of Lex Protocol, achieving 87% MPHR, with reports of mild SOB, no chest pain, with isolated PACs and very frequent PVCs, with normotensive response to exercise. Without any EKG changes meeting criteria for ischemia. In recovery, breathing quickly returned to baseline. Nuclear images pending. Test reviewed with Dr. Rahman. Referred By: Apolinar Watson Electronically Signed By: Elijah Willis
--- OUTSIDE RECORDS SUMMARY | 2025-03-13 07:52 | XMS_ITS | Clinical Summary ---
Author Organization [facility] Address [address] [place] [address] Care Team Providers Care Yoker Machine Operator Name Role Phone Oscar Grant MD Primary Care Provider [phone] Allergies No known active allergies Medications Medication Sig Dispensed Refills Start Date End Date Status aspirin EC 81 MG tablet Take 81 mg by mouth daily. 0 Active atenolol 50 MG TABS 1 tablet, chlorthalidone 25 MG TABS 1 tablet Take 1 tablet by mouth daily. 0 Active [place]-3 Fatty Acids (FISH OIL PO) Take 1,000 [...] age to complete this topic Care Teams Yoker Machine Operator Relationship Specialty Start Date End Date Oscar Grant MD [address] [place] [address] DR CEJA [facility] AFSANEH MARIE [id number] PCP - General Internal Medicine 08/25/17
--- OUTSIDE RECORDS SUMMARY | 2025-03-13 07:52 | XMS_ITS | Clinical Summary ---
Author Organization [facility] Address [address] [place] [address] Phone Care Team Providers Care Professional Model Name Role Phone Oscar Grant MD Primary [...] topic Medical Devices Not on file Insurance [facility] [address] [facility] RE[facility] [place]PLACEMENT [facility] REPLACEMENT [place] [id number] [place] [address] MEDICARE REPLACEMENT [place] [id number] [place] [address] MED[place]ARE REPLACEMENT [place] [id number] [place] [address] MEDICARE REPLACEMENT [facility] REPLACEMENT [facility] INSURANCE [facility] [place] [address] Care Teams Professional Model Relationship Specialty Start Date End Date Oscar Grant MD [address] [place] [address] [place] [address] PCP - General Internal Medicine 07/11/20 Additional Source Comments The information contained in this document represents components of the legal health record. It is not the complete legal health record.[facility]
--- OUTSIDE RECORDS SUMMARY | 2025-03-13 07:52 | XMS_ITS | Encounter Summary ---
Author Organization [facility] Address [address] [facility] [address] [place] [address] Phone Care Team Providers Care Program Director Cable Television Name Role Phone Oscar Grant MD Primary Care Provider Encounter Details Date Type Department Care Team (Late st Contact Info) Description 07/11/2020 Procedure Pass [facility], Ct Scan - [address] [address] Social History Tobacco Use Types Packs/Day Years [...] 07/11/2020 1:46 AM Matty Ramirez RN * [place] Suicide Severity Rating Scale (Screener/Recent Self-Report) Question [...] on filedocumented in this encounter Care Teams Program Director Cable Television Relationship Specialty Start Date End Date Oscar Grant MD [address] [place] [address] [place] [address] PCP - General Internal Medicine 07/11/20 documented as of this encounter Additional Source Comments The information contained in this document represents components of the legal health record. It is not the complete legal health record.[facility]
--- OUTSIDE RECORDS SUMMARY | 2025-03-13 07:52 | XMS_ITS | Encounter Summary ---
Author Organization [facility] Address [address] [facility] [address] [place] [address] Phone Care Team Providers Care Horticultural Specialty Grower Field Name Role Phone Oscar Grant MD Primary Care Provider Encounter Details Date Type Department Care Team (Late st Contact Info) Description 07/11/2020 Procedure Pass [facility], Ct Scan - [address] [address] Social History Tobacco Use Types Packs/Day Years [...] 07/11/2020 1:46 AM Matty Ramirez RN * [place] Suicide Severity Rating Scale (Screener/Recent Self-Report) Question [...] on filedocumented in this encounter Care Teams Horticultural Specialty Grower Field Relationship Specialty Start Date End Date Oscar Grant MD [address] [place] [address] [place] [address] PCP - General Internal Medicine 07/11/20 documented as of this encounter Additional Source Comments The information contained in this document represents components of the legal health record. It is not the complete legal health record.[facility]
--- OUTSIDE RECORDS SUMMARY | 2025-03-13 07:52 | XMS_ITS | Clinical Summary ---
Author Organization [facility] Address [address] [place] [address] Phone Care Team Providers Care President [employer] Name Role Phone Oscar Grant MD Primary Care Provider [phone] Allergies No known active allergies Medications aspirin [...] Description 07/31/2025 11:00 AM EDT Office Visit [facility] Hematology Oncology [address] [place] [phone] Yassine Alcazar MD [address] [place] [address] Health Maintenance Due Date Last Done Comments [...] [place] [employer] [address] Care Teams President [employer] Relationship Specialty Start Date End Date Oscar Grant MD [address] [place] [address] Dr Vargas, AFSANEH [address] PCP - General Internal Medicine 08/25/17
== END ==
LOC: HO.CARD 07:48
PROVIDERS: PCP Internal Medicine; Visit Provider Internal Medicine Cardiovascular Disease
DX: R07.9 Chest pain, unspecified (principal); R06.02 Shortness of breath
CPT/HCPCS: 78452; 93017; A9500; J0280; J2785

== ENCOUNTER → 2025-03-13 07:51 | Outpatient (BNV) | payer MEDICARE, SELFPAY | PROVIDERS: PCP Internal Medicine | DX: R07.9 Chest pain, unspecified (principal); R06.02 Shortness of breath | CPT/HCPCS: 78452; 93016; 93018 ==

== ENCOUNTER 2025-03-18 09:29 | Outpatient (AMB) | payer MEDICARE, SELFPAY ==
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
[2025-03-18 09:40] VITALS: BP 132/68; PULSE 49; RESP 18; TEMP 36.6; O2SAT 95; BMI 28.6
--- OUTSIDE RECORDS SUMMARY | 2025-03-18 10:44 | XMS_ITS | Encounter Summary ---
Author Organization [facility] Address [address] [facility] [address] [place] [address] Phone Care Team Providers Care Steamer Gum Candy Name Role Phone Oscar Grant MD Primary Care Provider Encounter Details Date Type Department Care Team (Late st Contact Info) Description 07/11/2020 Procedure Pass [facility], Ct Scan - [address] [place] [address] [address] Social History Tobacco Use Types Packs/Day Years [...] 07/11/2020 1:46 AM Matty Ramirez RN * [place] Suicide Severity Rating Scale (Screener/Recent Self-Report) Question [...] on filedocumented in this encounter Care Teams Steamer Gum Candy Relationship Specialty Start Date End Date Oscar Grant MD [address] [place] [address] [place] [address] PCP - General Internal Medicine 07/11/20 documented as of this encounter Additional Source Comments The information contained in this document represents components of the legal health record. It is not the complete legal health record.[facility]
--- OUTSIDE RECORDS SUMMARY | 2025-03-18 10:44 | XMS_ITS | Encounter Summary ---
Author Organization [facility] Address [address] [facility] [address] [place] [address] Phone Care Team Providers Care Director Human Services Name Role Phone Oscar Grant MD Primary Care Provider Encounter Details Date Type Department Care Team (Late st Contact Info) Description 07/11/2020 Procedure Pass [facility], Ct Scan - [address] [address] Social History Tobacco Use Types Packs/Day Years [...] 07/11/2020 1:46 AM Matty Ramirez RN * [place] Suicide Severity Rating Scale (Screener/Recent Self-Report) Question [...] on filedocumented in this encounter Care Teams Director Human Services Relationship Specialty Start Date End Date Oscar Grant MD [address] [place] [address] [place] [address] PCP - General Internal Medicine 07/11/20 documented as of this encounter Additional Source Comments The information contained in this document represents components of the legal health record. It is not the complete legal health record.[facility]
--- OUTSIDE RECORDS SUMMARY | 2025-03-18 10:44 | XMS_ITS | Clinical Summary ---
Author Organization [facility] Address [address] [place] [address] Care Team Providers Care Photography Colorist Name Role Phone Oscar Grant MD Primary Care Provider [phone] Allergies No known active allergies Medications Medication Sig Dispensed Refills Start Date End Date Status aspirin EC 81 MG tablet Take 81 mg by mouth daily. 0 Active atenolol 50 MG TABS 1 tablet, chlorthalidone 25 MG TABS 1 tablet Take 1 tablet by mouth daily. 0 Active [place]-3 Fatty Acids (FISH OIL PO) Take 1,000 [...] age to complete this topic Care Teams Photography Colorist Relationship Specialty Start Date End Date Oscar Grant MD [address] [place] [address] DR CEJA [facility] AFSANEH [place] [id number] PCP - General Internal Medicine 08/25/17
--- OUTSIDE RECORDS SUMMARY | 2025-03-18 10:44 | XMS_ITS | Clinical Summary ---
Author Organization [facility] Address [address] [place] [address] Phone Care Team Providers Care Neonatal Pediatric Nurse Name Role Phone Oscar Grant MD [...] topic Medical Devices Not on file Insurance [facility] MEDICARE REPLACEMENT [facility] MEDICARE REPLACEMENT [facility] MEDICARE REPLACEMENT [facility] MEDICARE REPLACEMENT [facility] MEDICARE [place]PLACEMENT [place] [id number] [place] [address] MEDICARE REPLACEMENT [place] [id number] [place] [address] MEDICARE REPLACEMENT [place] [id number] [place] [address] MEDICARE REPLACEMENT [facility] MEDICARE REPLACEMENT [facility] INSURANCE [facility] MEDICARE REPLACEMENT Care Teams Neonatal Pediatric Nurse Relationship Specialty Start Date End Date Oscar Grant MD [address] [place] [address] [place] [address] PCP - General Internal Medicine 07/11/20 Additional Source Comments The information contained in this document represents components of the legal health record. It is not the complete legal health record.[facility]
--- OUTSIDE RECORDS SUMMARY | 2025-03-18 10:45 | XMS_ITS | Clinical Summary ---
Author Organization [facility] Address [address] [address] Phone Care Team Providers Care Oxyacetylene Cutter Name Role Phone Oscar Grant MD Primary Care Provider [phone] Allergies No known active allergies Medications aspirin [...] Visit [facility] [address] [place] [address] Nawaf Keller MD [address] [facility] [address] [place] [address] Health Maintenance Due Date Last Done Comments Pneumococcal Vaccine: 50+ Years (2 of 2 - PPSV23, PCV20, or PCV21) 02/19/2018 12/25/2017, 05/19/2016 Influenza Vaccine (#1) 2025 Pneumococcal Vaccine: Peds (0 to 5 Years) and At-Risk Patients (6 to 49 Years) Discontinued 12/25/2017, 05/19/2016 Hepatitis B Vaccine Aged Out No longe r eligible based on patient's age to complete this topic Insurance [facility] Medicare Care Teams Oxyacetylene Cutter Relationship Specialty Start Date End Date Oscar Grant MD [address] [place] [address] [address] [place] PCP - General Internal Medicine 12/11/20
--- OUTSIDE RECORDS SUMMARY | 2025-03-18 10:45 | XMS_ITS | Clinical Summary ---
Author Organization [facility] Address [address] [place] [address] Phone Care Team Providers Care Signal Technician Name Role Phone Oscar Grant MD Primary Care Provider [phone] Allergies No known active allergies Medications aspirin [...] Description 07/31/2025 11:00 AM EDT Office Visit [facility] Hematology Oncology [address] [place] [phone] Yassine Alcazar MD [address] [place] [address] Health Maintenance Due Date Last Done Comments [...] MEDICARE ADVANTAGE [employer] MEDICARE Care Teams Signal Technician Relationship Specialty Start Date End Date Oscar Grant MD [address] [place] [address] Dr Vargas, AFSANEH [address] PCP - General Internal Medicine 08/25/17
== END 2025-03-18 10:16 | disposition home or self-care (01) ==
LOC: HO.HMCHD 09:30
PROVIDERS: PCP Physician Assistant; Visit Provider Physician Assistant
DX: R07.9 Chest pain, unspecified (principal); M17.0 Bilateral primary osteoarthritis of knee; E87.6 Hypokalemia; Z09 Encounter for follow-up examination after completed treatment for conditions other than malignant neoplasm; R20.9 Unspecified disturbances of skin sensation; M47.816 Spondylosis without myelopathy or radiculopathy, lumbar region

== ENCOUNTER → 2025-03-18 09:29 | Outpatient (BNVA) | payer MEDICARE, SELFPAY | PROVIDERS: PCP Internal Medicine; Visit Provider Physician Assistant | DX: Z09 Encounter for follow-up examination after completed treatment for conditions other than malignant neoplasm (principal); R07.9 Chest pain, unspecified; M17.0 Bilateral primary osteoarthritis of knee; E87.6 Hypokalemia; R20.9 Unspecified disturbances of skin sensation; M47.816 Spondylosis without myelopathy or radiculopathy, lumbar region; I10 Essential (primary) hypertension; E78.5 Hyperlipidemia, unspecified; I35.2 Nonrheumatic aortic (valve) stenosis with insufficiency; Z79.82 Long term (current) use of aspirin; Z79.899 Other long term (current) drug therapy | CPT/HCPCS: 99212 ==

== ENCOUNTER 2025-03-22 13:12 | Outpatient (AMB) | payer MEDICARE, SELFPAY ==
[2025-03-22 13:22] VITALS: BP 132/60; PULSE 51
--- NOTE | 2025-03-22 13:22 | MHC.OFFVIS ---
Vital Signs 03/22/25 13:22 Weight 193 lb 9.054 oz BMI Reason not done Patient refused/unable BP 132/60 Blood Pressure Location Lt brachial Position Sitting Pulse 51 Pulse Source Pulse Oximeter Intake Visit Reasons: follow up after testing's (NS) It Quality Analyst Required: No Accompanied by: Self / Same As Patient Allergies No Known Allergies Allergy (Verified 03/22/25 13:24) Medication List - Last Reconciled 03/22/25 by Elijah Willis NP aspirin (Adult Low Dose Aspirin) 81 mg PO DAILY atenolol-chlorthalidone 50-25 mg 1 tab PO DAILY 90 days atorvastatin 20 mg PO DAILY 90 days celecoxib (Celebrex) 100 mg PO BID cyanocobalamin (vitamin B-12) 1,000 mcg PO DAILY gabapentin 300 mg PO BEDTIME lisinopril 20 mg PO DAILY multivitamin 1 tab PO DAILY nifedipine ER 30 mg PO DAILY 90 days omega [id number]-rkq-uwx-fish oil 60-90-500 mg (Fish Oil) 1 cap PO DAILY potassium chloride ER 20 mEq PO DAILY HPI Comments Details: This is a 74-year-old male patient coming in for a hospital discharge follow-up. 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 Patient was recently seen in the hospital for chest pain that started suddenly with exertion accompanied with some nausea and diaphoresis. By the time patient gets to the emergency room, his symptoms already started resolving. Biomarkers for a negative. However given his risk factors, patient was started on aspirin therapy and underwent outpatient myocardial perfusion study. Today, patient reports feeling well overall without any recurrent symptoms of chest pain and denies shortness of breath, palpitations, dizziness, orthopnea, PND, leg edema, presyncope or syncope. Patient is reporting compliance with all his medications. REPLACED BY [facility] Medical History Neuropathy of both feet Osteoarthritis of knees, bilateral Normocytic anemia Prediabetes Hypokalemia Non-rheumatic aortic stenosis History of heartburn Colon cancer screening Hypertension Arthritis Hyperlipidemia Surgical History History of colonoscopy (~03/05/22) History of back surgery History of cholecystectomy Hx of repair of right rotator cuff History of arthroscopy of both knees Hx of arthroscopy of right knee History of surgical removal of skin lesion (~2021) Family History Sister Lung cancer Sister Cancer Mother Breast cancer Social History Household Members: None Housing: House Housing Other:: rents from sister in 2 family house Do you presently have visiting nurse or other home services: No Alcohol intake: former Year quit: 2019 Patient Tobacco Use Status: Never used Tobacco e-Cigarette/Vaping Use: Never Used service: Yes Review of Systems Const Denies daytime sleepiness, Denies difficulty sleeping, Denies snoring, Denies stops breathing during sleep and Denies weakness Card Denies chest pain, Denies rapid heart rate, Denies irregular heart rhythm, Denies claudication, Denies leg edema, Denies lightheadedness, Denies palpitations, Denies dyspnea, Denies dyspnea on exertion, Denies orthopnea, Denies paroxysmal nocturnal dyspnea and Denies slow heart rate Resp Denies cough, Denies dyspnea, Denies dyspnea on exertion and Denies snoring GI Reports no additional complaints, Denies hematochezia, Denies change in stool character and Denies dyspepsia Musc Denies abnormal gait, Denies muscle weakness and Denies numbness Neuro Denies abnormal gait, Denies numbness and Denies weakness Endo Denies palpitations Physical Exam Vital Signs: Last Vital Signs Pulse 51 03/22/25 13:22 BP 132/60 03/22/25 13:22 Const General: cooperative, healthy appearing, comfortable and no acute distress Orientation/consciousness: patient oriented x3 HEENT Head: Yes normal to inspection Neck Neck: Yes normal visual inspection, Yes trachea midline and Yes supple Chest Chest palpation & inspection: normal inspection of the chest Resp Effort & Inspection: normal respiratory effort Auscultation: clear to auscultation bilaterally, no crackles, no rales, no rhonchi and no wheezes Cardio Jugular venous distension: no JVD Palpation: normal PMI Rate: regular rate Rhythm: regular rhythm Heart sounds: S1 normal heart sound present, S2 normal heart sound present, no click, no gallops, Murmur heart sound present systolic and no rubs Peripheral pulses: Peripheral pulses 2+ throughout GI Inspection: Yes normal to inspection Palpation (GI): Soft to palpation Auscultation: normal bowel sounds Skin General skin exam: no rashes or lesions noted Neuro General: patient oriented x3 Extrem General: Yes normal to inspection, No no pedal edema and No calf tenderness Psych Appearance: grossly normal Mental Status: mental status grossly normal Speech and movement: Normal speech and movement present Assessment & Plan Assessment & Plan (1) Chest pain: Code(s): R07.9 - Chest pain, unspecified Category: Medical Qualifiers: Chest pain type: unspecified Qualified Code(s): R07.9 - Chest pain, unspecified Plan: 06/06/2024-echo study showed normal LV systolic function with the ejection fraction between 60-65% with impaired relaxation filling pattern, moderate aortic stenosis, mild aortic regurgitation, and mildly dilated ascending aorta. Patient had an episode of exertional chest discomfort with nausea and diaphoresis for which patient was in the hospital. EKG and biomarkers were negative. Given his overall risk factor, patient was started on aspirin therapy and underwent a myocardial perfusion study in the outpatient setting. 03/13/2025- myocardial perfusion study showed no clear evidence of ischemia. It did show fixed defect in the inferior wall, distal part of inferolateral wall, basal septum possibly all artifactual. However, given his multiple risk factors, we will proceed with a coronary CTA. Patient agreeable with the plan. (2) Hypertension: Code(s): I10 - Essential (primary) hypertension Category: Medical Plan: Blood pressure today is well-controlled. Continue current regimen with a blood pressure goal less than 130/80. Advised monitoring blood pressures at home and maintaining a log. Advised on low-salt diet. (3) Hospital discharge follow-up: Code(s): Z09 - Encounter for follow-up examination after completed treatment for conditions other than malignant neoplasm Category: Medical Plan: As above. Advised on heart healthy diet, regular exercise, med compliance, and aggressive management of vascular risk factors. Follow up after coronary CTA. In the interim, patient will call the office with any concerns or change in symptoms. Advised to seek ER care in case of exertional chest pain not resolved with rest. This note was generated using voice recognition software. While every effort has been made to ensure accuracy and proper beam carrier hauler pusher, there may be occasional errors that could affect the content or meaning of the described symptoms. Orders: Orders CT Cardiac Coronary Angio Today R07.9 - Chest pain, unspecified Basic Metabolic Panel Today R07.9 - Chest pain, unspecified Coding Level of Care Code Est Pt Level 4 (30019) Complex EM visit Add On G2211 Diagnoses Chest pain R07.9 Chest pain type: unspecified Hypertension I10 Hospital discharge follow-up Z09 Time Spent (min) 31 Comment Time spent in reviewing the chart, test results, assessment, counseling and documentation.
--- OUTSIDE RECORDS SUMMARY | 2025-03-22 15:21 | XMS_ITS | Clinical Summary ---
Author Organization [facility] Address [address] [place] [address] Phone Care Team Providers Care Carton Filling Machine Operator Name Role Phone Oscar Grant MD Primary Care Provider [phone] Allergies No known active allergies Medications aspirin [...] Description 07/31/2025 11:00 AM EDT Office Visit [facility] Hematology Oncology [address] [place] [id number] Yassine Alcazar MD [address] [place] [address] Health Maintenance Due Date Last Done Comments [...] MEDICARE ADVANTAGE [employer] MEDICARE Care Teams Carton Filling Machine Operator Relationship Specialty Start Date End Date Oscar Grant MD [address] [place] [address] Dr Vargas, AFSANEH [address] PCP - General Internal Medicine 08/25/17
--- OUTSIDE RECORDS SUMMARY | 2025-03-22 15:21 | XMS_ITS | Encounter Summary ---
Author Organization [facility] Address [address] [facility] [address] [place] [address] Phone Care Team Providers Care Disposition Clerk Name Role Phone Oscar Grant MD Primary Care Provider Encounter Details Date Type Department Care Team (Late st Contact Info) Description 07/11/2020 Procedure Pass [facility], Ct Scan - [address] [address] Social History Tobacco Use Types Packs/Day Years [...] 07/11/2020 1:46 AM Matty Ramirez RN * [place] Suicide Severity Rating Scale (Screener/Recent Self-Report) Question [...] on filedocumented in this encounter Care Teams Disposition Clerk Relationship Specialty Start Date End Date Oscar Grant MD [address] [place] [address] [place] [address] PCP - General Internal Medicine 07/11/20 documented as of this encounter Additional Source Comments The information contained in this document represents components of the legal health record. It is not the complete legal health record.[facility]
--- OUTSIDE RECORDS SUMMARY | 2025-03-22 15:21 | XMS_ITS | Clinical Summary ---
Author Organization [facility] Address [address] [place] [address] Phone Care Team Providers Care Ophthalmology Surgical Technician Name Role Phone Oscar Grant MD [...] topic Medical Devices Not on file Insurance [facility] MEDICARE REPLACEMENT [facility] MEDICARE REPLACEMENT [facility] MEDICARE REPLACEMENT [facility] MEDICARE [facility]PLACEMENT [facility] MEDICARE REPLACEMENT [place] [id number] [place] [address] MEDICARE REPLACEMENT [place] [id number] [place] [address] MEDICARE REPLACEMENT [place] [id number] [place] [address] MEDICARE REPLACEMENT [facility] MEDICARE REPLACEMENT [facility] INSURANCE [facility] MEDICARE REPLACEMENT Care Teams Ophthalmology Surgical Technician Relationship Specialty Start Date End Date Oscar Grant MD [address] [place] [address] [place] [address] PCP - General Internal Medicine 07/11/20 Additional Source Comments The information contained in this document represents components of the legal health record. It is not the complete legal health record.[facility]
--- OUTSIDE RECORDS SUMMARY | 2025-03-22 15:21 | XMS_ITS | Encounter Summary ---
Author Organization [facility] Address [address] [facility] [address] [place] [address] Phone Care Team Providers Care Patent Legal Assistant Name Role Phone Oscar Grant MD Primary Care Provider Encounter Details Date Type Department Care Team (Late st Contact Info) Description 07/11/2020 Procedure Pass [facility], Ct Scan - [address] [address] Social History Tobacco Use Types Packs/Day Years [...] 07/11/2020 1:46 AM Matty Ramirez RN * [place] Suicide Severity Rating Scale (Screener/Recent Self-Report) Question [...] on filedocumented in this encounter Care Teams Patent Legal Assistant Relationship Specialty Start Date End Date Oscar Grant MD [address] [place] [address] [place] [address] PCP - General Internal Medicine 07/11/20 documented as of this encounter Additional Source Comments The information contained in this document represents components of the legal health record. It is not the complete legal health record.[facility]
--- OUTSIDE RECORDS SUMMARY | 2025-03-22 15:21 | XMS_ITS | Clinical Summary ---
Author Organization [facility] Address [address] [place] [address] Care Team Providers Care Crystalizer Operator Name Role Phone Oscar Grant MD Primary Care Provider [phone] Allergies No known active allergies Medications Medication Sig Dispensed Refills Start Date End Date Status aspirin EC 81 MG tablet Take 81 mg by mouth daily. 0 Active atenolol 50 MG TABS 1 tablet, chlorthalidone 25 MG TABS 1 tablet Take 1 tablet by mouth daily. 0 Active [place]-3 Fatty Acids (FISH OIL PO) Take 1,000 [...] age to complete this topic Care Teams Crystalizer Operator Relationship Specialty Start Date End Date Oscar Grant MD [address] [place] [address] DR CEJA [facility] AFSANEH MAR[place] [id number] PCP - General Internal Medicine 08/25/17
== END 2025-03-22 14:01 | disposition home or self-care (01) ==
LOC: HO.HCS 13:13
PROVIDERS: PCP Internal Medicine
DX: R07.9 Chest pain, unspecified (principal); I10 Essential (primary) hypertension; Z09 Encounter for follow-up examination after completed treatment for conditions other than malignant neoplasm
CPT/HCPCS: 99214; G2211

== ENCOUNTER → 2025-03-22 13:12 | Outpatient (BNVA) | payer MEDICARE, SELFPAY | PROVIDERS: PCP Internal Medicine | DX: Z09 Encounter for follow-up examination after completed treatment for conditions other than malignant neoplasm (principal); I10 Essential (primary) hypertension; R07.9 Chest pain, unspecified | CPT/HCPCS: 99212 ==

== ENCOUNTER 2025-03-27 12:58 | Outpatient (REF) | payer MEDICARE, SELFPAY ==
[2025-03-27 14:48] LABS: Anion Gap 12 (12-20); Blood Urea Nitrogen 20 mg/dL (9-16); Calcium 9.7 mg/dL (8.4-10.2); Carbon Dioxide 29 mmol/L (22-29); Chloride 107 mmol/L (96-108); Estimated Glomerular Filt Rate > 60; Potassium 3.6 mmol/L (3.3-5.1); Sodium 144 mmol/L (135-145)
--- OUTSIDE RECORDS SUMMARY | 2025-03-27 15:34 | XMS_ITS | Encounter Summary ---
Author Organization [facility] Address [address] [facility] [address] [place] [address] Phone Care Team Providers Care Senior Automation Engineer Name Role Phone Oscar Grant MD Primary Care Provider Encounter Details Date Type Department Care Team (Late st Contact Info) Description 07/11/2020 Procedure Pass [facility], Ct Scan - [address] [address] Social History Tobacco Use Types Packs/Day Years [...] 07/11/2020 1:46 AM Matty Ramirez RN * [place] Suicide Severity Rating Scale (Screener/Recent Self-Report) Question [...] on filedocumented in this encounter Care Teams Senior Automation Engineer Relationship Specialty Start Date End Date Oscar Grant MD [address] [place] [address] [place] [address] PCP - General Internal Medicine 07/11/20 documented as of this encounter Additional Source Comments The information contained in this document represents components of the legal health record. It is not the complete legal health record.[facility]
--- OUTSIDE RECORDS SUMMARY | 2025-03-27 15:34 | XMS_ITS | Clinical Summary ---
Author Organization [facility] Address [address] [address] Phone Care Team Providers Care Supervisor Laundry Name Role Phone Oscar Grant MD Primary Care Provider [phone] Allergies No known active allergies Medications aspirin [...] Administration Dates Next Due Pneumococcal Conjugate 13-Valent 12/25/2017,08/2016 Family History Medical History Relation Comments Hypertension [...] Visit [facility] [address] [place] [address] Nawaf Keller MD [address] [facility] [address] [place] [address] Health Maintenance Due Date Last Done Comments Pneumococcal Vaccine: 50+ Years (2 of 2 - PPSV23, PCV20, or PCV21) 02/19/2018 12/25/2017, 05/19/2016 Influenza Vaccine (#1) 2025 Pneumococcal Vaccine: Peds (0 to 5 Years) and At-Risk Patients (6 to 49 Years) Discontinued 12/25/2017, 05/19/2016 Hepatitis B Vaccine Aged Out No longe r eligible based on patient's age to complete this topic Insurance [facility] Medicare Care Teams Supervisor Laundry Relationship Specialty Start Date End Date Oscar Grant MD [address] [place] [address] [address] [place] PCP - General Internal Medicine 12/11/20
--- OUTSIDE RECORDS SUMMARY | 2025-03-27 15:34 | XMS_ITS | Clinical Summary ---
Author Organization [facility] Address [address] [place] [address] Care Team Providers Care Transformer Tester Name Role Phone Oscar Grant MD Primary Care Provider [phone] Allergies No known active allergies Medications Medication Sig Dispensed Refills Start Date End Date Status aspirin EC 81 MG tablet Take 81 mg by mouth daily. 0 Active atenolol 50 MG TABS 1 tablet, chlorthalidone 25 MG TABS 1 tablet Take 1 tablet by mouth daily. 0 Active [place]-3 Fatty Acids (FISH OIL PO) Take 1,000 [...] age to complete this topic Care Teams Transformer Tester Relationship Specialty Start Date End Date Oscar Grant MD [address] [place] [address] DR CEJA [facility] AFSANEH [place] [id number] PCP - General Internal Medicine 08/25/17
--- OUTSIDE RECORDS SUMMARY | 2025-03-27 15:34 | XMS_ITS | Clinical Summary ---
Author Organization [facility] Address [address] [place] [address] Phone Care Team Providers Care Financial Coordinator Name Role Phone Oscar Grant MD Primary Care Provider [phone] Allergies No known active allergies Medications aspirin [...] Description 07/31/2025 11:00 AM EDT Office Visit [facility] Hematology Oncology [address] [place] [phone] Yassine Alcazar MD [address] [place] [address] Health Maintenance Due Date Last Done Comments [...] MEDICARE ADVANTAGE [employer] MEDICARE Care Teams Financial Coordinator Relationship Specialty Start Date End Date Oscar Grant MD [address] [place] [address] Dr Vargas, AFSANEH [address] PCP - General Internal Medicine 08/25/17
--- OUTSIDE RECORDS SUMMARY | 2025-03-27 15:34 | XMS_ITS | Encounter Summary ---
Author Organization [facility] Address [address] [facility] [address] [place] [address] Phone Care Team Providers Care Business Performance Specialist Name Role Phone Oscar Grant MD Primary Care Provider Encounter Details Date Type Department Care Team (Late st Contact Info) Description 07/11/2020 Procedure Pass [facility], Ct Scan - [address] [address] Social History Tobacco Use Types Packs/Day Years [...] 07/11/2020 1:46 AM Matty Ramirez RN * [place] Suicide Severity Rating Scale (Screener/Recent Self-Report) Question [...] on filedocumented in this encounter Care Teams Business Performance Specialist Relationship Specialty Start Date End Date Oscar Grant MD [address] [place] [address] [place] [address] PCP - General Internal Medicine 07/11/20 documented as of this encounter Additional Source Comments The information contained in this document represents components of the legal health record. It is not the complete legal health record.[facility]
--- OUTSIDE RECORDS SUMMARY | 2025-03-27 15:34 | XMS_ITS | Clinical Summary ---
Author Organization [facility] Address [address] [place] [address] Phone Care Team Providers Care Plastic Process Technician Name Role Phone Oscar Grant MD [...] patient's age to complete this topic IPV VACCINES Aged Out No longer eligi ble based on patient's age to complete this topic MENINGOCOCCAL VACCINES (ACWY) Aged Out No longer eligible based on patient's age to complete this topic MENINGOCOCCAL VACCINES (B) Aged Out N o longer eligible based on patient's age to complete this topic Medical Devices Not on file Insurance [facility] MEDICARE REPLACEMENT [facility] MEDICARE REPLACEMENT [place] [id number] [place] [address] MEDICARE REPLACEMENT [place] [address] [place] [address] MEDICARE REPLACEMENT [place] [id number] [place] [address] [place] [place] [address] [place] [address] [place] [address] [place] [place] [address] MEDICARE REPLACEMENT [place] [id number] [facility] MEDICARE REPLACEMENT [place] [id number] [facility] INSUR[address] [place] [address] MEDICARE REPLACEMENT Care Teams Plastic Process Technician Relationship Specialty Start Date End Date Oscar Grant MD [address] [place] [address] [place] [address] PCP - General Internal Medicine 07/11/20 Additional Source Comments The information contained in this document represents components of the legal health record. It is not the complete legal health record.[facility]
== END 2025-03-27 12:59 | disposition home or self-care (01) ==
LOC: HO.LAB 12:58
PROVIDERS: PCP Internal Medicine
DX: R07.9 Chest pain, unspecified (principal)
CPT/HCPCS: 36415; 80048

== ENCOUNTER 2025-04-09 13:55 | Outpatient (REF) | payer MEDICARE, SELFPAY ==
[2025-04-09 14:13] LABS: MANUAL DIFF FLAG NO
[2025-04-09 14:25] LABS: Hematocrit 35.6 % (42.0-52.0); Hemoglobin 12.6 g/dl (14.0-18.0); Imm Gran Abs Auto 0.01 X10*3/uL (0.00-0.03); Imm Gran Pct Auto 0.1 % (0.0-0.4); Lymphocytes Absolute Auto 2.4 X10*3/uL (1.2-4.9); Mean Corpuscular HGB Conc 35.4 g/dl (31.0-36.0); Mean Corpuscular Hemoglobin 28.0 pg (27.0-33.0); Mean Corpuscular Volume 79.1 fL (80.0-98.0); NRBC Abs Auto 0.000 X10*3/uL (0.0-0.012); NRBC Pct Auto 0.0 /100WBC (0.0-0.2); Platelet Count 221 X10*3/uL (160-400); Red Blood Count 4.50 X10*6/uL (4.60-5.80); White Blood Count 6.9 X10*3/uL (4.8-10.8)
[2025-04-09 14:41] LABS: Albumin Level 4.7 g/dL (3.5-5.0); Anion Gap 12 (12-20); Blood Urea Nitrogen 16 mg/dL (9-16); Calcium 9.5 mg/dL (8.4-10.2); Carbon Dioxide 30 mmol/L (22-29); Chloride 104 mmol/L (96-108); Iron 55 mcg/dL (45-160); Magnesium 2.1 mg/dL (1.6-2.6); Percent Iron Saturation 16 % (15-50); Potassium 3.3 mmol/L (3.3-5.1); Sodium 143 mmol/L (135-145); Total Iron Binding Capacity 352 mcg/dL (228-428); Unsaturated Iron Binding 297 ug/dL
[2025-04-09 14:54] LABS: Ferritin 10 ng/mL (20-250)
--- OUTSIDE RECORDS SUMMARY | 2025-04-09 17:49 | XMS_ITS | Clinical Summary ---
Author Organization [facility] Address [address] [place] [address] Care Team Providers Care Warehouse Selector Name Role Phone Oscar Grant MD Primary Care Provider [phone] Allergies No known active allergies Medications Medication Sig Dispensed Refills Start Date End Date Status aspirin EC 81 MG tablet Take 81 mg by mouth daily. 0 Active atenolol 50 MG TABS 1 tablet, chlorthalidone 25 MG TABS 1 tablet Take 1 tablet by mouth daily. 0 Active [place]-3 Fatty Acids (FISH OIL PO) Take 1,000 [...] age to complete this topic Care Teams Warehouse Selector Relationship Specialty Start Date End Date Oscar Grant MD [address] [place] [address] DR CEJA [facility] AFSANEH MAR[place] [id number] PCP - General Internal Medicine 08/25/17
--- OUTSIDE RECORDS SUMMARY | 2025-04-09 17:50 | XMS_ITS | Encounter Summary ---
Author Organization [facility] Address [address] [facility] [address] [place] [address] Phone Care Team Providers Care Theoretical Physics Teacher Name Role Phone Clayton Rojas MD Primary Care Provider + Encounter Details Date Type Department Care Team ([facility] Contact Info) Description 04/04/2025 Orders Only [facility] [address] [facility] [address] [place] [address] Ruth Aden MA 100 [facility] [address] [place] [address] Stage 3a chronic kidney disease (HCC) (Primary Dx); Hypertensive renal disease Social History Tobacco Use Types Packs/Day Years [...] on file documented as of this encounter Plan of Treatment Upcoming Encounters Date Type Department Care Team (Late st Contact Info) Description 04/15/2025 2:15 PM EST Office Visit [facility] [address] [place] [address] Nawaf Keller MD [address] [facility] [address] [place] [address] documented as of this encounter Procedures Procedure Name Priority Date/Time Associated Diagnosis Comments CBC AND DIFFERENTIAL Routine 04/09/2025 2:11 PM EST Stage 3a chronic kidney disease (HCC) Hypertensive renal disease RENAL FUNCTION PANEL Routine 04/09/2025 2:11 PM EST Stage 3a chronic kidney disease (HCC) Hypertensive renal disease documented in this encounter Results * (ABNORMAL) CBC and differential (04/09/2025 2:11 PM EST) WBC 6.9 4.8 - 10.8 X10*3/uL See order comments RBC 4.50(L) 4.60 - 5.80 X10*6/uL See order comments Hgb 12.6(L) 14.0 - 18.0 g/dl See order comments Hematocrit 35.6(L) 42.0 - 52.0 % See order comments MCV 79.1(L) 80.0 - 98.0 fL See order comments MCH 28.0 27.0 - 33.0 pg See order comments MCHC 35.4 31.0 - 36.0 g/dl See order comments RDW 14.5 11.0 - 16.0 % See order comments Platelets 221 160 - 400 X10*3/uL See order comments MPV 9.8 9.4 - 12.4 fL See order comments Neutrophils % Auto 49.9 45 - 73 % See order comments Immature Granulocytes 0.1 0.0 - 0.4 % See order comments Lymphocytes Relative 35.2 20 - 40 % See order comments Monocytes 12.6(H) 2 - 11 % See order comments Eosinophils Relative 1.3 0 - 4 % See order comments Basophils Relative 0.9 0 - 2 % See order comments nRBC Count 0.0 0.0 - 0.2 /100WBC See order comments Neutrophils Absolute 3.5 2.0 - 8.3 x10*3/uL See order comments Immature Grans (Absolute) 0.01 0.00 - 0.03 X10*3/uL See order comments Lymphocytes Absolute 2.4 1.2 - 4.9 X10*3/uL See order comments Monocytes Absolute 0.9 0.1 - 1.2 X10*3/uL See order comments Eosinophils Absolute 0.1 0.0 - 0.4 X10*3/uL See order comments Basophils Absolute 0.1 0.0 - 0.2 X10*3/uL See order comments NRBC Absolute 0.000 0.0 - 0.012 X10*3/uL See order comments Blood Venous blood / Unknown 04/09/2025 2:11 PM EST 04/09/2025 2:11 PM EST Nawaf Keller MD LAB BLOOD ORDERABLES Final Re sult Performing Organization Address City/[facility]/ZIP Co de Phone Number [facility] See order comments [place] [address] * (ABNORMAL) Renal function panel (04/09/2025 2:11 PM EST) Sodium 143 135 - 145 mmol/L See order comments Potassium 3.3 3.3 - 5.1 mmol/L See order comments Chloride 104 96 - 108 mmol/L See order comments Bicarbonate (CO2) 30(H) 22 - 29 mmol/L See order comments Anion Gap 12 12 - 20 See order comments BUN 16 9 - 16 mg/dL See order comments Creatinine Serum 1.09 0.5 - 1.4 mg/dL See order comments Glucose 115 60 - 115 mg/dL See order comments Calcium 9.5 8.4 - 10.2 mg/dL See order comments Phosphorus, Serum 3.0 2.7 - 4.5 mg/dL See order comments Albumin 4.7 3.5 - 5.0 g/dL See order comments Blood Venous blood / Unknown 04/09/2025 2:11 PM EST 04/09/2025 2:11 PM EST Nawaf Keller MD LAB BLOOD ORDERABLES Final Re sult [place] See order comments [place] [address] documented in this encounter Visit Diagnoses Diagnosis Stage 3a chronic kidney disease (HCC)- Primary Hypertensive renal disease documented in this encounter Care Teams Theoretical Physics Teacher Relationship Specialty Start Date End Date Clayton Rojas MD [address] [place], [place] [address] PCP - General Internal Medicine 04/03/25 documented as of this encounter
--- OUTSIDE RECORDS SUMMARY | 2025-04-09 17:50 | XMS_ITS | Clinical Summary ---
Author Organization [facility] Address [address] [address] Phone Care Team Providers Care Passenger Agent Name Role Phone Claytno Rojas MD Primary Care Provider + Allergies No known active allergies Medications aspirin [...] Diagnosed Date Resolved Date Essential hypertension 12/11/202012/11 Encounters Date Type Department Care Team Description 04/09/2025 Orders Only [facility] [address] [address] Nawaf Keller MD 04/04/2025 Orders Only [facility] [address] [address] Ruth Aden MA Stage 3a chronic kidney disease (HCC) (Primary Dx); Hypertensive renal disease 04/04/2025 Orders Only [facility] [address] [place] [address] Ruth Aden MA Stage 3a chronic kidney disease (HCC) (Primary Dx); Hypertensive renal disease from Last 3 Months Immunizations Immunization Administration Dates Next Due Pneumococcal [...] Office Visit [facility] [address] [place] [address] Nawaf Keller MD [address] [address] Health Maintenance Due Date Last Done Comments [...] Procedure Name Priority Date/Time Associated Diagnosis Comments FERRITIN Routine 04/09/2025 2:11 PM EST IRON PANEL (FE, TIBC, TSAT) Routine 04/09/2025 2:11 PM EST Stage 3a chronic kidney disease (HCC) Hypertensive renal disease MAGNESIUM Routine 04/09/2025 2:11 PM EST Stage 3a chronic kidney disease (HCC) Hypertensive renal disease CBC AND DIFFERENTIAL Routine 04/09/2025 2:11 PM EST Stage 3a chronic kidney disease (HCC) Hypertensive renal disease RENAL FUNCTION PANEL Routine 04/09/2025 2:11 PM EST Stage 3a chronic kidney disease (HCC) Hypertensive renal disease from Last 3 Months Results * Iron Panel (Fe, TIBC, TSAT) (04/09/2025 2:11 PM EST) Iron 55 45 - 160 mcg/dL See order comments TIBC 352 228 - 428 mcg/dL See order comments Iron Saturation (TSat) 16 15 - 50 % See order comments UIBC 297 ug/dL See order comments Blood Venous blood / Unknown 04/09/2025 2:11 PM EST 04/09/2025 2:11 PM EST us Nawaf Keller MD LAB BLOOD ORDERABLES Final Re sult [place] See order comments [place] [address] * (ABNORMAL) CBC and differential (04/09/2025 2:11 [...] 2:11 PM EST 04/09/2025 2:11 PM EST us Nawaf Keller MD LAB BLOOD ORDERABLES Final Re sult Performing Organization Address [facility] Phone Number [facility] See order comments [place] [address] * Magnesium (04/09/2025 2:11 PM EST) Pathologist [facility] Magnesium 2.1 1.6 - 2.6 mg/dL See order comments Blood Venous blood / Unknown 04/09/2025 2:11 PM EST 04/09/2025 2:11 PM EST us Nawaf Keller MD LAB BLOOD ORDERABLES Final Re sult Performing Organization Address [facility] Phone Number [place] See order comments [place] [address] * (ABNORMAL) Ferritin (04/09/2025 2:11 PM EST) Pathologist [facility] Ferritin 10(L) 20 - 250 ng/mL See order comments 04/09/2025 2:11 PM EST 04/09/2025 2:11 PM EST us Nawaf Keller MD LAB BLOOD ORDERABLES Final Re sult Performing Organization Address [facility] Phone Number [place] See order comments [place] [address] * (ABNORMAL) Renal function panel (04/09/2025 2:11 PM EST) Pathologist [facility] Sodium 143 135 - 145 mmol/L See [...] 2:11 PM EST 04/09/2025 2:11 PM EST us Nawaf Keller MD LAB BLOOD ORDERABLES Final Re sult [place] See order comments [place] [address] from Last 3 Months Insurance [facility] Medicare Care Teams Passenger Agent Relationship Specialty Start Date End Date Clayton Rojas MD [address] [place] [address] [place] [address] PCP - General Internal Medicine 04/03/25
--- OUTSIDE RECORDS SUMMARY | 2025-04-09 17:50 | XMS_ITS | Encounter Summary ---
Author Organization [facility] Address [address] [address] Phone Care Team Providers Care Port Captain Name Role Phone Clayton Rojas MD Primary Care Provider + Encounter Details Date Type Department Care Team (Late Contact Info) Description 04/09/2025 Orders Only [facility] [address] [place] [address] Nawaf Keller MD [address] [address] Social History Tobacco Use Types Packs/Day Years [...] Encounters Date Type Department Care Team (Late Contact Info) Description 04/15/2025 2:15 PM EST Office Visit [facility] of [address] [place] [address] Nawaf Keller MD [address] [address] documented as of this encounter Procedures Procedure Name Priority Date/Time Associated Diagnosis Comments FERRITIN Routine 04/09/2025 2:11 PM EST documented in this encounter Results * (ABNORMAL) Ferritin (04/09/2025 2:11 PM EST) Ferritin 10(L) 20 - 250 ng/mL See order comments 04/09/2025 2:11 PM EST 04/09/2025 2:11 PM EST us Nwaaf Keller MD LAB BLOOD ORDERABLES Final Re sult [place] See order comments [place] [address] documented in this encounter Visit Diagnoses Not on filedocumented in this encounter Care Teams Port Captain Relationship Specialty Start Date End Date Clayton Rojas MD [facility] [address] [place] [address] , [place] [address] [place] [address] PCP - General Internal Medicine 04/03/25 documented as of this encounter
--- OUTSIDE RECORDS SUMMARY | 2025-04-09 17:50 | XMS_ITS | Encounter Summary ---
Author Organization [facility] Address [address] [facility] [address] [place] [address] Phone Care Team Providers Care Office Aide Name Role Phone Clayton Rojas MD Primary Care Provider + Encounter Details Date Type Department Care Team ([facility] Contact Info) Description 04/04/2025 Orders Only [facility] [address] [facility] [address] [place] [address] Ruth Aden MA 100 [facility] [address] [place] [address] Stage 3a chronic kidney disease [...] Office Visit [facility] [address] [place] [address] Nawaf Keller MD [address] [facility] [address] [place] [address] documented as of this encounter Procedures Procedure Name Priority Date/Time Associated Diagnosis Comments IRON PANEL (FE, TIBC, TSAT) Routine 04/09/2025 2:11 PM EST Stage 3a chronic kidney disease (HCC) Hypertensive renal disease MAGNESIUM Routine 04/09/2025 2:11 PM EST Stage 3a chronic kidney disease (HCC) Hypertensive renal disease documented in this encounter Results * Iron Panel (Fe, TIBC, TSAT) [...] ORDERABLES Final Re sult Performing Organization Address [facility] Co de Phone Number [place] See order comments [place] [address] * Magnesium (04/09/2025 2:11 PM EST) Magnesium 2.1 1.6 - 2.6 mg/dL See order comments Blood Venous blood / Unknown 04/09/2025 2:11 PM EST 04/09/2025 2:11 PM EST Nawaf Keller MD LAB BLOOD ORDERABLES Final Re sult [place] See order comments [place] [address] documented in this encounter Visit Diagnoses Diagnosis Stage 3a chronic kidney disease (HCC)- Primary Hypertensive renal disease documented in this encounter Care Teams Office Aide Relationship Specialty Start Date End Date Clayton Rojas MD [facility] [address] [place] [address] [place] [address] [place] [address] PCP - General Internal Medicine 04/03/25 documented as of this encounter
--- OUTSIDE RECORDS SUMMARY | 2025-04-09 17:50 | XMS_ITS | Clinical Summary ---
Author Organization [facility] Address [address] [place] [address] Phone Care Team Providers Care Tugboat Captain Name Role Phone Oscar Grant MD Primary Care Provider [phone] Allergies No known active allergies Medications aspirin [...] Description 07/31/2025 11:00 AM EDT Office Visit [facility] Hematology Oncology [address] [place] [id number] Yassine Alcazar MD [address] [place] [address] Health Maintenance Due Date Last Done Comments [...] MEDICARE ADVANTAGE [employer] MEDICARE Care Teams Tugboat Captain Relationship Specialty Start Date End Date Oscar Grant MD [address] [place] [address] Dr [place], [place] [address] PCP - General Internal Medicine 08/25/17
--- OUTSIDE RECORDS SUMMARY | 2025-04-09 17:50 | XMS_ITS | Encounter Summary ---
Author Organization [facility] Address [address] [facility] [address] [place] [address] Phone Care Team Providers Care Veterinary Assistant Name Role Phone sOcar Grant MD Primary Care Provider [phone] Encounter Details Date Type Department Care Team (Late st Contact Info) Description 07/11/2020 Procedure Pass [facility], Ct Scan - [address] [address] Social History Tobacco Use Types Packs/Day Years [...] 07/11/2020 1:46 AM Matty Ramirez RN * [place] Suicide Severity Rating Scale (Screener/Recent Self-Report) Question [...] filedocumented in this encounter Care Teams Veterinary Assistant Relationship Specialty Start Date End Date Oscar Grant MD [address] [place] [address] [place] [address] PCP - General Internal Medicine 07/11/20 documented as of this encounter Additional Source Comments The information contained in this document represents components of the legal health record. It is not the complete legal health record.[facility]
--- OUTSIDE RECORDS SUMMARY | 2025-04-09 17:50 | XMS_ITS | Encounter Summary ---
Author Organization [facility] Address [address] [facility] [address] [place] [address] Phone Care Team Providers Care Patient Navigator Name Role Phone Oscar Grant MD Primary Care Provider Encounter Details Date Type Department Care Team (Late st Contact Info) Description 07/11/2020 Procedure Pass [facility], Ct Scan - [address] [address] Social History Tobacco Use Types Packs/Day Years [...] 07/11/2020 1:46 AM Matty Ramirez RN * [place] Suicide Severity Rating Scale (Screener/Recent Self-Report) Question [...] on filedocumented in this encounter Care Teams Patient Navigator Relationship Specialty Start Date End Date Oscar Grant MD [address] [place] [address] [place] [address] PCP - General Internal Medicine 07/11/20 documented as of this encounter Additional Source Comments The information contained in this document represents components of the legal health record. It is not the complete legal health record.[facility]
--- OUTSIDE RECORDS SUMMARY | 2025-04-09 17:50 | XMS_ITS | Clinical Summary ---
Author Organization [facility] Address [address] [place] [address] Phone Care Team Providers Care Compressed Gas Tester Name Role Phone Oscar Grant MD [...] topic Medical Devices Not on file Insurance [facility] MEDICARE REPLACEMENT [facility] MEDICARE REPLACEMENT [facility] MEDICARE [facility]PLACEMENT [facility] MEDICARE REPLACEMENT [facility] MEDICARE REPLACEMENT [place] [id number] [place] [address] MEDICARE REPLACEMENT [place] [id number] [place] [address] MEDICARE REPLACEMENT [place] [id number] [place] [address] MEDICARE REPLACEMENT [facility] MEDICARE REPLACEMENT [facility] INSURANCE [facility] MEDICARE REPLACEMENT Care Teams Compressed Gas Tester Relationship Specialty Start Date End Date Oscar Grant MD [address] [place] [address] [place] [address] PCP - General Internal Medicine 07/11/20 Additional Source Comments The information contained in this document represents components of the legal health record. It is not the complete legal health record.[facility]
== END 2025-04-09 13:56 | disposition home or self-care (01) ==
LOC: HO.LAB 13:55
PROVIDERS: PCP Internal Medicine; Visit Provider Internal Medicine Nephrology
DX: I12.9 Hypertensive chronic kidney disease with stage 1 through stage 4 chronic kidney disease, or unspecified chronic kidney disease (principal); N18.31 Chronic kidney disease, stage 3a
CPT/HCPCS: 36415; 80069; 82728; 83540; 83735; 85025

== ENCOUNTER 2025-05-01 13:10 | Outpatient (AMB) | payer OTHER, SELFPAY ==
--- NOTE | 2025-05-01 13:17 | MHC.PC.OV ---
Vital Signs 05/01/25 13:21 Height 5 ft 8 in Weight 89.018 kg BMI 29.8 BP 132/60 Respiration 14 Pulse 52 Pulse Source Pulse Oximeter Temp 97.3 F Temp Source Temporal Artery Scan Pulse Oximetry (%) 98 Oxygen Delivery Method Room Air Intake Visit Reasons: 4 Month F/U - see comments Skiing Teacher Required: No Accompanied by: Self / Same As Patient Allergies No Known Allergies Allergy (Verified 05/01/25 13:17) Tobacco use date assessed: 01/02/25 Fall risk assessment: No Falls in past year Last assessed Fall Risk: 05/01/25 Dental Screening Dental Screen Date: 05/01/25 Did you have a dental visit in the last 12 months?: No Did you have a dental problem in the last 6 months where you did not have access to dental care?: No HPI HPI Comments History of Present Illness Details 74-year-old male with history of hypercholesterolemia, aortic valve stenosis and insufficiency, hypertension, 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 History of hairy cell carcinoma- 2017. Treated at [facility], and follows yearly, Dr. Alcazar 08/07/25. Underwent chemo. Hypertension-compliant with atenolol-chlorthalidone 50-25 mg daily, lisinopril 20 mg daily, nifedipine 30 mg ER. Blood pressure today 130/62 Hyperlipidemia-compliant with atorvastatin Aortic valve stenosis/insufficiency-most recent echo 05/2024 showing moderate aortic stenosis and mild aortic regurgitation. He is asymptomatic OA bilateral knees- upcoming appt with ortho next month CKD stage 3- Dr. [place]. Some concern with celebrex. Concerns: Weight- cutting back Chronic thoracic and lumbar back pain . Continue with cool sensation in ble L>R- primarily last 3 toes. Occasional stiffness in low back, with LLE radiculopathy of the S1/S2 dermatome . No weakness, no issues ambulating. Lumbar XR 09/2023 showed advanced DDD L5-S1. hx discectomy following work accident- feel off train. He is taking several small works per day Health maintenance: Last colonoscopy 02/2022 with PRN follow-up. Dr. Aden ROS: Negative except for HPI EXAM: Constitutional - Awake and Alert, No apparent distress Eyes - PERRL Cardiovascular - S1S2, RRR, II/ systolic murmur best heard in aortic area, No edema. 2+ pedal pulses b/l, R toes cool but with appropriate cap refill, tingling sensation along lateral aspect of the R great toe and across the dorsum of the distal right toes Respiratory - Normal lung expansion, Normal respiratory effort, No respiratory distress, CTA bilaterally Extremities - no calf tenderness bilaterally, no swelling Skin - Warm/Dry Neurological - Alert & oriented x3 Psychological - Appropriate [facility] Medical History Neuropathy of both feet Osteoarthritis of knees, bilateral Normocytic anemia Prediabetes Hypokalemia Non-rheumatic aortic stenosis History of heartburn Colon cancer screening Hypertension Arthritis Hyperlipidemia Surgical History History of colonoscopy (~03/05/22) History of back surgery History of cholecystectomy Hx of repair of right rotator cuff History of arthroscopy of both knees Hx of arthroscopy of right knee History of surgical removal of skin lesion (~2021) Family History Sister Lung cancer Sister Cancer Mother Breast cancer Social History Household Members: None Housing: House Housing Other:: rents from sister in 2 family house Do you presently have visiting nurse or other home services: No Alcohol intake: former Year quit: 2019 Patient Tobacco Use Status: Never used Tobacco e-Cigarette/Vaping Use: Never Used service: Yes Cognitive needs: No Hearing needs: No Vision needs: Yes (Reading glasses PRN) Questionnaire Thrive Questionnaire Date Thrive assessed: 03/10/25 KARMA-7 AMB Questionnaire KARMA-7 Date KARMA - 7 assessed: 01/02/25 Source: Developed by Drs. Jono Gongora, Natasha Wisdom, Johnathan Duarte and colleagues, with an educational blanca from [employer] Physical exam (Primary Care) Vital Signs: Last Vital Signs Temp 97.3 F 05/01/25 13:21 Pulse 52 05/01/25 13:21 Resp 14 05/01/25 13:21 BP 132/60 05/01/25 13:21 Pulse Ox 98 05/01/25 13:21 Oxygen Delivery Method Room Air 05/01/25 13:21 BMI result Body Mass Index 29.8 Tobacco/Smoking Status: Tobacco use Status Tobacco use date assessed 01/02/25 05/01/25 13:23 Patient Tobacco Use Status Never used Tobacco 05/01/25 13:23 e-Cigarette/Vaping Use Never Used 05/01/25 13:23 Thrive Assessment: Date of Thrive Assessment Date Thrive assessed 03/10/25 05/01/25 13:23 Coding Level of Care Code Est Pt Level 4 (39612) Add On Problem Visit Only Diagnoses Hypertension I10 Hypokalemia E87.6 Prediabetes R73.03 Normocytic anemia D64.9 Osteoarthritis of knees, bilateral M17.0 Polyneuropathy G62.9 Assessment & Plan Assessment & Plan (1) Hypertension: Code(s): I10 - Essential (primary) hypertension Category: Medical Plan: Controlled. Continue lisinopril, nifedipine, atenolol-chlorthalidone (2) Hypokalemia: Code(s): E87.6 - Hypokalemia Category: Medical Plan: Continue potassium chloride 20 mEq daily Will re-evaluate electrolytes today (3) Prediabetes: Code(s): R73.03 - Prediabetes Category: Medical Plan: Counseled on prediabetes including diet. Will recheck hemoglobin A1c today (4) Normocytic anemia: Code(s): D64.9 - Anemia, unspecified Category: Medical Plan: Anemia of chronic disease- iron levels approrpriate (5) Osteoarthritis of knees, bilateral: Code(s): M17.0 - Bilateral primary osteoarthritis of knee Category: Medical Plan: X-ray of the bilateral knees. Suspect pain is related to osteoarthritis. Discussed pending results can trial physical therapy versus referral to Orthopedic surgery. In the meantime recommend ibuprofen/Tylenol and can also use topical analgesics (6) Polyneuropathy: Code(s): G62.9 - Polyneuropathy, unspecified Category: Medical Plan: Etiology unclear. Not related to chemo. Trial gabapentin 300 mg nightly. Numbness/cool sensation in the feel is more likely r/t neuropathy from severe DDD at L5-S1 given distribution. However, will await results of arterial doppler Plan Follow-up in the office in 4 months. Labs to be completed beforehand Orders: Orders Liver Panel 4 Months I10 - Essential (primary) hypertension, I73.9 - Peripheral vascular disease, unspecified, R73.03 - Prediabetes Basic Metabolic Panel 4 Months I10 - Essential (primary) hypertension, I73.9 - Peripheral vascular disease, unspecified, R73.03 - Prediabetes Lipid Panel 4 Months I10 - Essential (primary) hypertension, I73.9 - Peripheral vascular disease, unspecified, R73.03 - Prediabetes Hemoglobin A1c 4 Months R73.03 - Prediabetes
[2025-05-01 13:21] VITALS: BP 132/60; PULSE 52; RESP 14; TEMP 36.3; O2SAT 98; BMI 29.8
--- OUTSIDE RECORDS SUMMARY | 2025-05-01 17:22 | XMS_ITS | Clinical Summary ---
Author Organization [facility] [employer] Prior to 10/13/[address] [place] [address] Care Team Providers Care Construction Trades Teacher Name Role Phone Oscar Grant MD Primary Care Provider [phone] Allergies No known active allergies Medications Medication Sig Dispensed Refills Start Date End Date Status aspirin EC 81 MG tablet Take 81 mg by mouth daily. 0 Active atenolol 50 MG TABS 1 tablet, chlorthalidone 25 MG TABS 1 tablet Take 1 tablet by mouth daily. 0 Active [place]-3 Fatty Acids (FISH OIL PO) Take 1,000 [...] age to complete this topic Care Teams Construction Trades Teacher Relationship Specialty Start Date End Date Oscar Grant MD [address] [place] [address] DR CEJA [facility] AFSANEH MARIE [address] PCP - General Internal Medicine 08/25/17
--- OUTSIDE RECORDS SUMMARY | 2025-05-01 17:22 | XMS_ITS | Encounter Summary ---
Author Organization [facility] Address [address] [facility] [address] [place] [address] Phone Care Team Providers Care Mobility Developer Name Role Phone Oscar Grant MD Primary Care Provider [phone] Encounter Details Date Type Department Care Team (Late st Contact Info) Description 07/11/2020 Procedure Pass [facility], Ct Scan - [address] [address] Social History Tobacco Use Types Packs/Day Years [...] 07/11/2020 1:46 AM Matty Ramirez RN * [place] Suicide Severity Rating Scale (Screener/Recent Self-Report) Question [...] on filedocumented in this encounter Care Teams Mobility Developer Relationship Specialty Start Date End Date Oscar Grant MD [address] [place] [address] [place] [address] PCP - General Internal Medicine 07/11/20 documented as of this encounter Additional Source Comments The information contained in this document represents components of the legal health record. It is not the complete legal health record.[facility]
--- OUTSIDE RECORDS SUMMARY | 2025-05-01 17:22 | XMS_ITS | Clinical Summary ---
Author Organization [facility] Address [address] [place] [phone] Phone Care Team Providers Care Chief Communications Officer Name Role Phone Oscar Grant MD Primary [...] MEDICARE REPLACEMENT [facility] MEDICARE REPLACEMENT [place] [id number] [place] [address] MEDICARE REPLACEMENT [place] [id number] [place] [address] MEDICARE REPLACEMENT [place] [id number] [place] [address] MEDICARE REPLACEMENT [facility] MEDICARE REPLACEMENT [facility] INSURANCE [facility] MEDICARE REPLACEMENT Care Teams Chief Communications Officer Relationship Specialty Start Date End Date Oscar Grant MD [address] [place] [address] [place] [address] PCP - General Internal Medicine 07/11/20 Additional Source Comments The information contained in this document represents components of the legal health record. It is not the complete legal health record.[facility]
--- OUTSIDE RECORDS SUMMARY | 2025-05-01 17:22 | XMS_ITS | Encounter Summary ---
Author Organization [facility] Address [address] [facility] [address] [place] [address] Phone Care Team Providers Care Stroboroma Operator Name Role Phone Oscar Grant MD Primary Care Provider Encounter Details Date Type Department Care Team (Late st Contact Info) Description 07/11/2020 Procedure Pass [facility], Ct Scan - [address] [address] Social History Tobacco Use Types Packs/Day Years [...] 07/11/2020 1:46 AM Matty Ramirez RN * [place] Suicide Severity Rating Scale (Screener/Recent Self-Report) Question [...] on filedocumented in this encounter Care Teams Stroboroma Operator Relationship Specialty Start Date End Date Oscar Grant MD [address] [place] [address] [place] [address] PCP - General Internal Medicine 07/11/20 documented as of this encounter Additional Source Comments The information contained in this document represents components of the legal health record. It is not the complete legal health record.[facility]
--- OUTSIDE RECORDS SUMMARY | 2025-05-01 17:22 | XMS_ITS | Clinical Summary ---
Author Organization [facility] Address [address] [place] [address] Phone Care Team Providers Care Systems Operator Name Role Phone Oscar Grant MD Primary Care Provider [phone] Allergies No known active allergies Medications aspirin [...] Description 07/31/2025 11:00 AM EDT Office Visit [facility] Hematology Oncology [address] [place] [id number] Yassine Alcazar MD [address] [place] [address] Health Maintenance Due Date Last Done Comments [...] MEDICARE ADVANTAGE [employer] MEDICARE Care Teams Systems Operator Relationship Specialty Start Date End Date Oscar Grant MD [address] [place] [address] Dr Vargas, AFSANEH [address] PCP - General Internal Medicine 08/25/17
== END 2025-05-01 14:05 | disposition home or self-care (01) ==
LOC: HO.HMCHD 13:11
PROVIDERS: PCP Family Medicine; Visit Provider Physician Assistant
DX: I10 Essential (primary) hypertension (principal); E87.6 Hypokalemia; R73.03 Prediabetes; D64.9 Anemia, unspecified; M17.0 Bilateral primary osteoarthritis of knee; G62.9 Polyneuropathy, unspecified